=== PATIENT | male | born 2000 | race Caucasian/White ===

== ENCOUNTER 2022-12-25 16:52 | Emergency (ER) | payer MEDICAID ==
[2022-12-25] MEDS ORDERED: TYLENOL 325 MG PO ONE (17:25)
[2022-12-25 17:27] VITALS: BP 124/84; O2SAT 98
--- NOTE | 2022-12-25 17:29 | ERPHSYRPT ---
- History of Present Illness Time Seen by Provider: 12/25/22 17:30 Source: patient Physician History: Patient is a 22-year-old male presents to our ED for evaluation of bilateral hand pain. Patient states he was upset and punched a brick wall. Patient punched a brick wall with his right and his left hand. Right hand is more swollen than the left. Injury occurred just prior to arrival. Pain described as an ache that is localized. No radiation. Pain worse with movement and palpation. Pain improved with rest. Patient denies other injuries. No BHT or LOC. No neck pain. Cervical spine cleared clinically. Patient voices no other complaints or concerns at this time. Patient took ibuprofen approximately 4 hours prior to arrival. Occurred: this afternoon Method of Injury: other (Punched a brick wall) Quality: constant Severity of Pain-Max: moderate Severity of Pain-Current: mild Extremities Pain Location: hand: left Modifying Factors: Improves With: movement, other (Movement and palpation worsens pain) Associated Symptoms: none Allergies/Adverse Reactions: Penicillins Allergy (Verified 12/25/22 17:12) Home Medications: Buspirone HCl 15 mg PO BID 12/25/22 [History] Escitalopram Oxalate [Lexapro] 20 mg PO DAILY 12/25/22 [History] Quetiapine Fumarate [Seroquel] 1 tab PO HS 12/25/22 [History] - Review of Systems Constitutional: No Symptoms, No Fever, No Chills Eyes: No Symptoms Ears, Nose, & Throat: No Symptoms Respiratory: No Symptoms, No Cough, No Dyspnea Cardiac: No Symptoms, No Chest Pain, No Edema, No Syncope Abdominal/Gastrointestinal: No Symptoms, No Abdominal Pain, No Nausea, No Vomiting, No Diarrhea Genitourinary Symptoms: No Symptoms, No Dysuria Musculoskeletal: No Symptoms, No Back Pain, No Neck Pain Skin: No Symptoms, No Rash Neurological: No Symptoms, No Dizziness, No Focal Weakness, No Sensory Changes Psychological: No Symptoms Endocrine: No Symptoms Hematologic/Lymphatic: No Symptoms Immunological/Allergic: No Symptoms All Other Systems: Reviewed and Negative - Nursing Vital Signs Nursing Vital Signs: Initial Vital Signs Temperature 98.7 F 12/25/22 17:16 Pulse Rate 88 12/25/22 17:16 Respiratory Rate 18 12/25/22 17:16 Blood Pressure 124/84 12/25/22 17:16 O2 Sat by Pulse Oximetry 98 12/25/22 17:16 Pain Scale Pain Intensity 8 - Physical Exam General Appearance: no apparent distress, alert Eyes, Ears, Nose, Throat Exam: normal ENT inspection, TMs normal, pharynx normal, moist mucous membranes Neck Exam: normal inspection, non-tender, supple, full range of motion Cardiovascular/Respiratory Exam: chest non-tender, normal breath sounds, regular rate/rhythm, no respiratory distress, decreased pulses Abdominal Exam: non-tender, No guarding Back Exam: normal inspection, normal range of motion, No vertebral tenderness Shoulder Exam: normal inspection, non-tender, no evidence of injury, normal ROM Elbow/Forearm Exam: normal inspection, non-tender, no evidence of injury, normal ROM Wrist Exam: normal inspection, non-tender, no evidence of injury, normal ROM Hand Exam: bone tenderness, limited ROM, swelling (Both hands are swollen however both are neurovascular intact distally. Compartments are soft. Cap refill less than 2 seconds. Radial pulse palpable. No open or draining le sions.) Neuro/Tendon Exam: normal sensation, normal motor functions Mental Status Exam: alert, oriented x 3, cooperative Skin Exam: normal color, warm, dry SpO2 Interpretation: normal SpO2: 98 O2 Delivery: Room Air - Course Nursing assessment & vital signs reviewed: Yes - Radiology Exams Hand X-ray Interpretation: Interpreted by me (Left hand is swollen. There is a fracture of the base of the third fourth and fifth metacarpal.) Other X-ray Interpretation: Interpreted by me (Right hand minimal swelling fracture at the base of the third metacarpal) Ordered Tests: Active Orders 24 hr Category Date Time Status HAND (MINIMUM 3 VIEWS) Stat Exams 12/25/22 16:59 Taken HAND (MINIMUM 3 VIEWS) Stat Exams 12/25/22 16:59 Taken Medication Summary Discontinued Medications Generic Name Dose Route Start Last Admin Trade Name Freq PRN Reason Stop Dose Admin Acetaminophen 975 mg 12/25/22 17:25 12/25/22 17:41 Acetaminophen 325 Mg Tablet PO 12/25/22 17:26 975 mg STAT ONE Administration Acetaminophen Confirm 12/25/22 17:39 Acetaminophen 325 Mg Tablet Administered 12/25/22 17:40 Dose 975 mg .ROUTE .STK-MED ONE - Progress Progress: improved Progress Note: 22-year-old male presents to our ED for evaluation of bilateral hand pain. Left hand more swollen than the right. Patient states he punched a brick wall because he was upset. Patient's complaint is acute. Injury occurred just prior to arrival. Complexity of problems addressed is low, acute uncomplicated. Complexity of data reviewed and analyzed is moderate. Dr. Barillas independently interpreted imaging study of patient's hands. Test ordered. Test reviewed. Risk of complication and or risk morbidity/mortality of patient management is minimal. Patient received Tylenol for pain control. Bilateral splints applied. Patient referred to orthopedic clinic for further evaluation and treatment. Patient reassessed. Pain well controlled at this time. He voices no other complaints or concerns at this time. Both upper extremities are neurovascular intact distally post application of splints to each involved hand. Portions of this note were created with voice recognition technology. There may be grammatical, spelling, punctuation or sound alike errors 12/25/22 18:12 Counseled pt/family regarding: diagnosis, need for follow-up, rad results - Departure Departure Disposition: Home Clinical Impression: Bilateral hand fractures Condition: Stable Critical Care Time: No Referrals: DOCTOR,NO FAMILY [Primary Care Provider] - Follow up/PCP as directed Additional Instructions: Discharge/Care Plan MANJEET FLOWER was seen on 12/25/22 in the Emergency Room. The patient was counseled regarding Diagnosis,Lab results, Imaging studies, need for follow up and when to return to the Emergency Room. Prescriptions given: Discharge Note I have spoken with the patient and/or caregivers. I have explained the patient's condition, diagnosis and treatment plan based on the information available to me at this time. I have answered the patient's and/or caregiver's questions and addressed any concerns. The patient and/or caregivers have as good understanding of the patient's diagnosis, condition and treatment plan as can be expected at this point. The vital signs have been stable. The patient's condition is stable and appropriate for discharge from the emergency department. The patient will pursue further outpatient evaluation with the primary care physician or other designated or consulting physician as outlined in the discharge instructions. The patient and/or caregivers are agreeable to this plan of care and follow-up instructions have been explained in detail. The patient and/or caregivers have received these instruction. The patient/and or caregivers are aware that any significant change in condition or worsening of symptoms sh ould prompt an immediate return to this or the closest emergency department or call 911. Outpatient Orders: Ortho Referral Time Frame: 1 Day, Facility: [facility], Location: ORTHO CLINIC
[2022-12-25] MEDS ORDERED: TYLENOL 325 MG ONE (17:39)
[2022-12-25] MEDS ORDERED: NORCO 5/325 MG PO ONE (18:22)
[2022-12-25] MEDS ORDERED: NORCO 5/325 MG ONE ×2 (18:23)
[2022-12-25 18:31] VITALS: PULSE 80
--- NOTE | 2022-12-26 08:41 | XRAY ---
Indication: Pain and swelling following punching injury. Comparison: None 3 view right hand obtained. No bony, articular, or soft tissue abnormalities.
--- NOTE | 2022-12-26 08:41 | XRAY ---
Indication: Pain and swelling following punching injury. Comparison: None 3 view left hand demonstrates nondisplaced fractures proximal shafts 3rd-4th metacarpals and angulated fracture proximal shaft 5th metacarpal with diffuse posterior soft tissue swelling. No other bony, articular, or soft tissue abnormalities.
== END 2022-12-25 18:31 | disposition home or self-care (01) ==
LOC: ED 16:52
DX: S62.313A Displaced fracture of base of third metacarpal bone, left hand, initial encounter for closed fracture (principal); S62.315A Displaced fracture of base of fourth metacarpal bone, left hand, initial encounter for closed fracture; S62.317A Displaced fracture of base of fifth metacarpal bone, left hand, initial encounter for closed fracture; S62.312A Displaced fracture of base of third metacarpal bone, right hand, initial encounter for closed fracture; W22.01XA Walked into wall, initial encounter; M79.641 Pain in right hand; M79.642 Pain in left hand; Z79.899 Other long term (current) drug therapy
CPT/HCPCS: 29125; 73130; 99283; A9270-GY

== ENCOUNTER 2023-09-03 11:13 | Emergency (ER) | payer MEDICAID ==
--- NOTE | 2023-09-03 11:43 | ERPHSYRPT ---
- History of Present Illness Time Seen by Provider: 09/03/23 11:20 Source: patient Exam Limitations: no limitations Patient Subjective Stated Complaint: C/O intermittent SOB with cough for the past few days Triage Nursing Assessment: Patient ambulated back to ER without difficulties. NO cough. No SOB. Skin tone normal. DOBSON WNL. Lungs clear with right side slightly diminished. Physician History: 23-year-old male no significant past medical history presents to our ED for evaluation of intermittent shortness of breath and a intermittent dry cough. Symptoms started approximately 3 days ago. Patient denies pain. No dizziness. No nausea vomiting or diaphoresis. Patient currently asymptomatic. When present symptoms are mild to moderate in intensity. Shortness of breath mostly with exertion. Patient otherwise feels well. He voices no other complaints or concerns at this time. Portions of this note were created with voice recognition technology. There may be grammatical, spelling, punctuation or sound alike errors Timing/Duration: day(s) (2 to 3 days) Activities at Onset: activity Severity of Dyspnea-Max: moderate Severity of Dyspnea-Current: mild Possible Cause: no prior episodes Modifying Factors: Improves With: activity Associated Symptoms: cough Allergies/Adverse Reactions: Penicillins Allergy (Verified 09/03/23 11:17) Home Medications: Brexpiprazole [Rexulti] 1 tab PO DAILY 09/03/23 [History] Fluoxetine HCl 20 mg [Prozac 20 MG] 1 cap PO DAILY 09/03/23 [History] Hx Tetanus, Diphtheria Vaccination/Date Given: Yes Hx Influenza Vaccination/Date Given: No Hx Pneumococcal Vaccination/Date Given: No Immunizations Up to Date: Yes Travel Risk - International Travel Have you traveled outside of the country in past 3 weeks: No - Coronavirus Screening Are you exhibiting any of the following symptoms?: Yes Symptoms: Cough: New Onset, Shortness of Breath Close contact with a COVID-19 positive Pt in past 14-21 Days: No - Vaccine Status Have you recieved a Covid-19 vaccination: Yes Stem Mounter: Moderna - Vaccination Dates Date of 2cond Vaccination (if applicable): na - Review of Systems Constitutional: No Symptoms, No Fever, No Chills Eyes: No Symptoms Ears, Nose, & Throat: No Symptoms Respiratory: No Symptoms, No Cough, No Dyspnea Cardiac: No Symptoms, No Chest Pain, No Edema, No Syncope Abdominal/Gastrointestinal: No Symptoms, No Abdominal Pain, No Nausea, No Vomiting, No Diarrhea Genitourinary Symptoms: No Symptoms, No Dysuria Musculoskeletal: No Symptoms, No Back Pain, No Neck Pain Skin: No Symptoms, No Rash Neurological: No Symptoms, No Dizziness, No Focal Weakness, No Sensory Changes Psychological: No Symptoms Endocrine: No Symptoms Hematologic/Lymphatic: No Symptoms Immunological/Allergic: No Symptoms All Other Systems: Reviewed and Negative - Past Medical History Pertinent Past Medical History: Yes Neurological History: Epilepsy ENT History: No Pertinent History Cardiac History: No Pertinent History Respiratory History: Pneumonia Endocrine Medical History: No Pertinent History Musculoskeletal History: No Pertinent History GI Medical History: Hernia History: No Pertinent History Psycho-Social History: Anxiety, Bipolar, Depression, Other Male Reproductive Disorders: No Pertinent History Other Medical History: Autism, reactive attachment disorder - Past Surgical History Past Surgical History: Yes Neuro Surgical History: No Pertinent History Cardiac: No Pertinent History Respiratory: No Pertinent History Gastrointestinal: Hernia Repair Genitourinary: No Pertinent History Musculoskeletal: No Pertinent History Male Surgical History: No Pertinent History Other Surgical History: Hernia repair - Social History Smoking Status: Never smoker Exposure to second hand smoke: No Drug Use: none Patient Lives Alone: No - Nursing Vital Signs Nursing Vital Signs: Initial Vital Signs Respiratory Rate 17 09/03/23 11:14 O2 Sat by Pulse Oximetry 99 09/03/23 11:14 Pain Scale Pain Intensity 0 - Physical Exam General Appearance: no apparent distress, alert Eye Exam: PERRL/EOMI Neck Exam: normal inspection, supple Respiratory Exam: normal breath sounds, airway intact, diminished breath sounds ([place] diminished otherwise nonremarkable), No respiratory distress Cardiovascular/Chest Exam: normal heart sounds, regular rate/rhythm Abdominal/Gastrointestinal Exam: soft, No tenderness, No distention, No mass Extremity Exam: non-tender, normal range of motion, normal inspection, no calf tenderness, no pedal edema Neurologic Exam: alert, oriented x 3, cooperative, spray unit feeder II-XII nml as tested, sensation nml, No motor deficits Skin Exam: normal color, warm, No dry Lymphatic Exam: No adenopathy SpO2 Interpretation: normal SpO2: 99 O2 Delivery: Room Air - Course Nursing assessment & vital signs reviewed: Yes EKG Interpreted by Me: RATE (89), Sinus Rhythm, NORMAL AXIS, NORMAL INTERVALS - Radiology Exams Chest X-ray Interpretation: Teleradiologist Report (Negative chest x-ray) - CT Exams Chest CT Interpretation: Tele-radiologist Report (Negative for PE.) Ordered Tests: Active Orders 24 hr Category Date Time Status EKG-ER Only STAT Care 09/03/23 11:20 Active IV Insertion STAT Care 09/03/23 12:41 Active CHEST 1 VIEW (PORTABLE) Stat Exams 09/03/23 11:20 Completed CHEST WITH CONTRAST [CT] Stat Exams 09/03/23 12:42 Completed CBC W DIFF Stat Lab 09/03/23 11:50 Completed CMP Stat Lab 09/03/23 11:50 Completed D-DIMER QUANTITATIVE Stat Lab 09/03/23 11:50 Completed TROPONIN Q4H Lab 09/03/23 11:50 Completed TROPONIN Q4H Lab 09/03/23 15:45 Ordered TROPONIN Q4H Lab 09/03/23 19:45 Ordered Respiratory Therapy Assessment DAILY RT 09/03/23 12:44 Completed Medication Summary Discontinued Medications Generic Name Dose Route Start Last Admin Trade Name Freq PRN Reason Stop Dose Admin Albuterol/Ipratropium 3 ml 09/03/23 12:14 09/03/23 12:41 Ipratropium/Albuterol Sulfate 3 Ml Ampul.Neb IH 09/03/23 12:15 3 ml STAT ONE Administration Albuterol/Ipratropium Confirm 09/03/23 12:38 Ipratropium/Albuterol Sulfate 3 Ml Ampul.Neb Administered 09/03/23 12:39 Dose 3 ml IH .STK-MED ONE Lab/Rad Data: Laboratory Result Diagrams 09/03/23 11:50 09/03/23 11:50 Laboratory Results 09/03/23 09/03/23 09/03/23 Range/Units 11:50 11:50 11:50 WBC (4.0-10.5) x10^3/uL RBC (4.1-5.6) x10^6/uL Hgb (12.5-18.0) g/dL Hct (42-50) % MCV (78-100) fL MCH (26-32) pg MCHC (32-36) g/dL RDW (11.5-14.0) % Plt Count (150-450) x10^3/uL MPV (7.5-11.0) fL Gran % (36.0-66.0) % Immature Gran % (Auto) (0.00-0.4) % Nucleat RBC Rel Count (0.00-0.1) % Eos # (Auto) (0-0.5) x10^3/uL Immature Gran # (Auto) (0.00-0.03) x10^3u/L Absolute Lymphs (auto) (1.0-4.6) x10^3/uL Absolute Monos (auto) (0.0-1.3) x10^3/uL Absolute Nucleated RBC (0.00-0.01) x10^3u/L Lymphocytes % (24.0-44.0) % Monocytes % (0.0-12.0) % Eosinophils % (0.00-5.0) % Basophils % (0.0-0.4) % Absolute Granulocytes (1.4-6.9) x10^3/uL Basophils # (0-0.4) x10^3/uL D-Dimer 0.62 H* (0.0-0.50) mg/L Sodium 139 (137-145) mmol/L Potassium 3.9 (3.5-5.1) mmol/L Chloride 108 H (98-107) mmol/L Carbon Dioxide 21 L (22-30) mmol/L Anion Gap 13.4 (5-15) MEQ/L BUN 16 (9-20) mg/dL Creatinine 1.22 (0.66-1.25) mg/dL Estimated GFR 86.0 ML/MIN Glucose 100 (74-106) mg/dL Calcium 9.5 (8.4-10.2) mg/dL Total Bilirubin 0.50 (0.2-1.3) mg/dL AST 23 (17-59) U/L ALT 28 (0-50) U/L Alkaline Phosphatase 73 (38-126) U/L Troponin I < 0.012 (0.000-0.034) ng/mL Serum Total Protein 7.0 (6.3-8.2) g/dL Albumin 4.2 (3.5-5.0) g/dL Influenza Type A Ag (NEGATIVE) Influenza Type B Ag (NEGATIVE) RSV (PCR) (NEGATIVE) SARS-CoV-2 (PCR) (NEGATIVE) Group A Strep Antibody (NEGATIVE) 09/03/23 09/03/23 09/03/23 Range/Units 11:50 11:40 11:40 WBC 5.5 (4.0-10.5) x10^3/uL RBC 5.48 (4.1-5.6) x10^6/uL Hgb 15.9 (12.5-18.0) g/dL Hct 46.6 (42-50) % MCV 85.0 (78-100) fL MCH 29.0 (26-32) pg MCHC 34.1 (32-36) g/dL RDW 12.1 (11.5-14.0) % Plt Count 342 (150-450) x10^3/uL MPV 9.1 (7.5-11.0) fL Gran % 58.8 (36.0-66.0) % Immature Gran % (Auto) 0.4 (0.00-0.4) % Nucleat RBC Rel Count 0.0 (0.00-0.1) % Eos # (Auto) 0.09 (0-0.5) x10^3/uL Immature Gran # (Auto) 0.02 (0.00-0.03) x10^3u/L Absolute Lymphs (auto) 1.63 (1.0-4.6) x10^3/uL Absolute Monos (auto) 0.49 (0.0-1.3) x10^3/uL Absolute Nucleated RBC 0.00 (0.00-0.01) x10^3u/L Lymphocytes % 29.6 (24.0-44.0) % Monocytes % 8.9 (0.0-12.0) % Eosinophils % 1.6 (0.00-5.0) % Basophils % 0.7 (0.0-0.4) % Absolute Granulocytes 3.24 (1.4-6.9) x10^3/uL Basophils # 0.04 (0-0.4) x10^3/uL D-Dimer (0.0-0.50) mg/L Sodium (137-145) mmol/L Potassium (3.5-5.1) mmol/L Chloride (98-107) mmol/L Carbon Dioxide (22-30) mmol/L Anion Gap (5-15) MEQ/L BUN (9-20) mg/dL Creatinine (0.66-1.25) mg/dL Estimated GFR ML/MIN Glucose (74-106) mg/dL Calcium (8.4-10.2) mg/dL Total Bilirubin (0.2-1.3) mg/dL AST (17-59) U/L ALT (0-50) U/L Alkaline Phosphatase (38-126) U/L Troponin I (0.000-0.034) ng/mL Serum Total Protein (6.3-8.2) g/dL Albumin (3.5-5.0) g/dL Influenza Type A Ag NEGATIVE (NEGATIVE) Influenza Type B Ag NEGATIVE (NEGATIVE) RSV (PCR) NEGATIVE (NEGATIVE) SARS-CoV-2 (PCR) NEGATIVE (NEGATIVE) Group A Strep Antibody NOT DETECTED (NEGATIVE) - Progress Progress: improved Air Movement: good Progress Note: Patient assessed at rest. O2 sat on room air 97%. Patient reassessed during exertion while ambulating. Oxygen saturation remained 97%. No tachypnea or respiratory distress observed. Patient denied experiencing shortness of breath with exertion during our assessment here in the emergency department. Chest x- ray negative. EKG normal sinus rhythm. D-dimer positive. CTA chest negative. Troponin negative. Hemoglobin negative. CBC CMP nonremarkable otherwise. No indication for further work-up at this time. Will discharge home. Patient voices no other complaints or concerns at this time. Patient received a DuoNeb treatment. Patient states symptoms improved. Portions of this note were created with voice recognition technology. There may be grammatical, spelling, punctuation or sound alike errors Patient 23-year-old male presents to our ED for evaluation of intermittent shortness of breath and cough. Physical exam slightly diminished breath sounds. Work-up negative. Complexity problem addressed is moderate acute complicated Critical care time Place of data reviewed and analyzed is moderate. Test ordered test reviewed. Results analyzed and correlated clinically with history and physical examination. Risk of complication and a risk morbidity/mortality of patient management is moderate. A prescription for albuterol inhaler forwarded to patient's pharmacy. Vital stable. Time spent to discharge patient approximately 15 minutes. Plan of care established for shared decision making. No social determinants of health present impede follow-up. 09/03/23 12:08 09/03/23 12:43 Blood Culture(s) Obtained: No Antibiotics given: No Counseled pt/family regarding: lab results, diagnosis, need for follow-up, rad results - Departure Departure Disposition: Home Clinical Impression: Shortness of breath, Reactive airway disease Condition: Stable Critical Care Time: No Referrals: DOCTOR,NO FAMILY [Primary Care Provider] - Follow up/PCP as directed Instructions: Shortness of Breath (Dyspnea) (DC) Additional Instructions: Discharge/Care Plan MANJEET FLOWER was seen on 09/03/23 in the Emergency Room. The patient was counseled regarding Diagnosis,Lab results, Imaging studies, need for follow up and when to return to the Emergency Room. Prescriptions given: Discharge Note I have spoken with the patient and/or caregivers. I have explained the patient's condition, diagnosis and treatment plan based on the information available to me at this time. I have answered the patient's and/or caregiver's questions and addressed any concerns. The patient and/or caregivers have as good understanding of the patient's diagnosis, condition and treatment plan as can be expected at this point. The vital signs have been stable. The patient's condition is stable and appropriate for discharge from the emergency department. The patient will pursue further outpatient evaluation with the primary care physician or other designated or consulting physician as outlined in the discharge instructions. The patient and/or caregivers are agreeable to this plan of care and follow-up instructions have been explained in detail. The patient and/or caregivers have received these instruction. The patient/and or caregivers are aware that any significant change in condition or worsening of symptoms should prompt an immediate return to this or the closest emergency department or call 911. Prescriptions: Albuterol 8 gm Mdi Hfa [Ventolin Hfa MDI] 8 gm IH Q4H 7 Days #1 unit
--- NOTE | 2023-09-03 11:53 | XRAY ---
Indication: Short of breath and cough. Comparison: May 27, 2011 Portable chest again demonstrates normal heart, lungs, and bony thorax.
[2023-09-03 11:56] LABS: Absolute Neutrophil Ct (ANC) 3.24 x10^3/uL (1.4-6.9); BASOPHIL % 0.7 % (0.0-0.4); Basophil (Absolute #) 0.04 x10^3/uL (0-0.4); Eosinophil % 1.6 % (0.00-5.0); Eosinophil (Absolute #) 0.09 x10^3/uL (0-0.5); Hematocrit 46.6 % (42-50); Hemoglobin 15.9 g/dL (12.5-18.0); IMMATURE GRAN # 0.02 x10^3u/L (0.00-0.03); IMMATURE GRAN % 0.4 % (0.00-0.4); Lymphocyte (Absolute #) 1.63 x10^3/uL (1.0-4.6); Lymphocytes % 29.6 % (24.0-44.0); Mean Corpuscular Hgb Concent. 34.1 g/dL (32-36); Mean Platelet Volume 9.1 fL (7.5-11.0); Monocyte (Absolute #) 0.49 x10^3/uL (0.0-1.3); Monocytes % 8.9 % (0.0-12.0); Neutrophil % 58.8 % (36.0-66.0); Platelet Count 342 x10^3/uL (150-450); Red Blood Count 5.48 x10^6/uL (4.1-5.6); Red Cell Distribution Width 12.1 % (11.5-14.0); White Blood Count 5.5 x10^3/uL (4.0-10.5)
[2023-09-03 12:10] LABS: ALBUMIN 4.2 g/dL (3.5-5.0); ANION GAP 13.4 MEQ/L (5-15); BILIRUBIN,TOTAL 0.5 mg/dL (0.2-1.3); Calcium 9.5 mg/dL (8.4-10.2); Creatinine 1 1.22 mg/dL (0.66-1.25); Potassium 3.9 mmol/L (3.5-5.1)
[2023-09-03 12:27] LABS: INFLUENZA A NEGATIVE (NEGATIVE); INFLUENZA B NEGATIVE (NEGATIVE); RESPIRATORY SYNCTIAL VIRUS NEGATIVE (NEGATIVE); SARS-CoV-2 Xpert Express NEGATIVE (NEGATIVE)
[2023-09-03] MEDS ORDERED: DUONEB 0.5-3 MG/3 ml Neb IH ONE (12:38)
[2023-09-03] MEDS: DUONEB 0.5-3 MG/3 ml Neb IH ONE (12:41)
--- NOTE | 2023-09-03 13:27 | XRAY ---
Indication: Short of breath and cough. Elevated d-dimer. Multiple contiguous axial images obtained through the chest using 80 cc Isovue 370 contrast and PE protocol. Comparison: None Adequate opacification of the pulmonary arteries to include the lobar and segmental branches. No pulmonary embolus. Heart not enlarged. Aorta is normal in course and caliber. No pathologic mediastinal/hilar lymphadenopathy. Lungs inflated and clear. Bony thorax intact. Limited upper abdomen including adrenal glands are unremarkable. Impression: Normal CT chest pulmonary embolus exam.
[2023-09-03 13:49] VITALS: BP 142/81; PULSE 84; RESP 16
[2023-09-03 13:52] VITALS: O2SAT 99
== END 2023-09-03 13:53 | disposition home or self-care (01) ==
LOC: ED 11:13
DX: J45.909 Unspecified asthma, uncomplicated (principal); R06.02 Shortness of breath; R05.1 Acute cough; Z79.899 Other long term (current) drug therapy
CPT/HCPCS: 0241U; 36000; 36415; 71045; 71260; 80053; 84484; 85025; 85379; 87651; 93005; 94640; 99284; A9270-GY

== ENCOUNTER 2023-09-25 01:03 | Emergency (ER) | payer MEDICAID ==
[2023-09-25 02:14] LABS: Absolute Neutrophil Ct (ANC) 9.26 x10^3/uL (1.4-6.9); BASOPHIL % 0.3 % (0.0-0.4); Basophil (Absolute #) 0.04 x10^3/uL (0-0.4); Eosinophil % 0.2 % (0.00-5.0); Eosinophil (Absolute #) 0.02 x10^3/uL (0-0.5); Hematocrit 49.5 % (42-50); Hemoglobin 16.4 g/dL (12.5-18.0); IMMATURE GRAN # 0.04 x10^3u/L (0.00-0.03); IMMATURE GRAN % 0.3 % (0.00-0.4); Lymphocyte (Absolute #) 1.68 x10^3/uL (1.0-4.6); Lymphocytes % 14.2 % (24.0-44.0); Mean Cell Volume 87.3 fL (78-100); Mean Corpuscular Hemoglobin 28.9 pg (26-32); Mean Corpuscular Hgb Concent. 33.1 g/dL (32-36); Mean Platelet Volume 8.9 fL (7.5-11.0); Monocyte (Absolute #) 0.77 x10^3/uL (0.0-1.3); Monocytes % 6.5 % (0.0-12.0); Neutrophil % 78.5 % (36.0-66.0); Platelet Count 348 x10^3/uL (150-450); Red Blood Count 5.67 x10^6/uL (4.1-5.6); Red Cell Distribution Width 12.8 % (11.5-14.0); White Blood Count 11.8 x10^3/uL (4.0-10.5)
[2023-09-25 02:23] VITALS: TEMP 97.2
[2023-09-25 02:27] VITALS: O2SAT 97
[2023-09-25 02:28] LABS: ALBUMIN 4.5 g/dL (3.5-5.0); ANION GAP 16.3 MEQ/L (5-15); BILIRUBIN,TOTAL 0.4 mg/dL (0.2-1.3); Calcium 10.3 mg/dL (8.4-10.2); Creatinine 1 1.08 mg/dL (0.66-1.25); EST GLOMERULAR FILTRATION RATE 99.5 ML/MIN; Potassium 3.9 mmol/L (3.5-5.1); Total Protein 7.5 g/dL (6.3-8.2)
--- NOTE | 2023-09-25 03:02 | ERPHSYRPT ---
- History of Present Illness Time Seen by Provider: 09/25/23 02:00 Source: patient Exam Limitations: no limitations Patient Subjective Stated Complaint: pt states that he woke up and was "excessively sweaty" and has been having frequent muscle cramps and spasms. reports that this has been going on for approx 1 mo and was seen here on 09/03/2023 then was seen by his PCP who placed him on a heart monitor which was placed 09/24/23 and he will follow up with his PCP for those results in 2 wks. Triage Nursing Assessment: pt ambulated into room 8 independently with slow steady gait. pt is alert and oriented times three, is able to move all extremi ties, resp even and unlabored, and able to speak in complete sentences. speech yumiko is very rapid and with his voice frequently fluctuated to loudness, intonation, speed. pt fidgeting with his hands during entire triage assessment. minimal eye contact made by pt, shifting his eyes rapidly from person to person or object in room. pt appears anxious but states this isn't usually how he feels with his anxiety and denies being nervous about anything but does report that he is behind in his college schoolwork and exam prep and also hasn't been seeing his therapist as recommended. pt denies other symptoms at this time. pt reports being "hot and sweaty" skin warm, dry, pink, and intact without perspiration noted. Physician History: 23-year-old male presents to our ED for evaluation of cramps. Patient states symptoms have been ongoing for approximately 1 month. Patient saw his PCP regarding these problems. Patient states that he is concerned as symptoms are ongoing. Patient admits to drinking vodka on weekends. Patient states he drinks a significant amount approximately 1 "handle". Patient denies illicit drug use. 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 Patient denies pain. No nausea vomiting or diaphoresis. No fever. Symptoms are mild to moderate in intensity. No specific worsening or improving factors. Patient voices no other complaints or concerns at this time. Portions of this note were created with voice recognition technology. There may be grammatical, spelling, punctuation or sound alike errors Timing/Duration: week(s) (1 month) Severity: moderate Modifying Factors: Improves With: nothing Associated Symptoms: other (Symptoms are associated with stress and anxiety patient denies HI SI) Allergies/Adverse Reactions: Penicillins Allergy (Verified 09/25/23 01:47) Home Medications: Brexpiprazole [Rexulti] 1 tab PO DAILY 09/03/23 [History] Fluoxetine HCl 20 mg [Prozac 20 MG] 1 cap PO DAILY 09/03/23 [History] Clonidine HCl 0.1 mg [Clonidine 0.1 mg Tablet] 2 tab PO HS 09/25/23 [History] Hx Tetanus, Diphtheria Vaccination/Date Given: Yes Hx Influenza Vaccination/Date Given: No Hx Pneumococcal Vaccination/Date Given: No Immunizations Up to Date: Yes Travel Risk - International Travel Have you traveled outside of the country in past 3 weeks: No - Coronavirus Screening Are you exhibiting any of the following symptoms?: No Close contact with a COVID-19 positive Pt in past 14-21 Days: No - Vaccine Status Have you recieved a Covid-19 vaccination: Yes [employer]: [id number] - Vaccination Dates Date of 2cond Vaccination (if applicable): n/a - Review of Systems Constitutional: No Symptoms, No Fever, No Chills Eyes: No Symptoms Ears, Nose, & Throat: No Symptoms Respiratory: No Symptoms, No Cough, No Dyspnea Cardiac: No Symptoms, No Chest Pain, No Edema, No Syncope Abdominal/Gastrointestinal: No Symptoms, No Abdominal Pain, No Nausea, No Vomiting, No Diarrhea Genitourinary Symptoms: No Symptoms, No Dysuria Musculoskeletal: No Symptoms, No Back Pain, No Neck Pain Skin: No Symptoms, No Rash Neurological: No Symptoms, No Dizziness, No Focal Weakness, No Sensory Changes Psychological: No Symptoms Endocrine: No Symptoms Hematologic/Lymphatic: No Symptoms Immunological/Allergic: No Symptoms All Other Systems: Reviewed and Negative - Past Medical History Pertinent Past Medical History: Yes Neurological History: Epilepsy ENT History: No Pertinent History Cardiac History: No Pertinent History Respiratory History: Pneumonia Endocrine Medical History: No Pertinent History Musculoskeletal History: No Pertinent History GI Medical History: Hernia History: No Pertinent History Psycho-Social History: Anxiety, Bipolar, Depression, Other Male Reproductive Disorders: No Pertinent History Other Medical History: Autism, reactive attachment disorder - Past Surgical History Past Surgical History: Yes Neuro Surgical History: No Pertinent History Cardiac: No Pertinent History Respiratory: No Pertinent History Gastrointestinal: Hernia Repair Genitourinary: No Pertinent History Musculoskeletal: No Pertinent History Male Surgical History: No Pertinent History Other Surgical History: Hernia repair x2 - Social History Smoking Status: Never smoker Exposure to second hand smoke: No Drug Use: none Patient Lives Alone: No - Nursing Vital Signs Nursing Vital Signs: Initial Vital Signs Pulse Rate 103 H 09/25/23 01:48 Respiratory Rate 20 09/25/23 01:48 Blood Pressure 150/98 09/25/23 01:48 O2 Sat by Pulse Oximetry 96 09/25/23 01:48 Pain Scale Pain Intensity 0 - Physical Exam General Appearance: no apparent distress, alert Eye Exam: PERRL/EOMI, eyes nml inspection Ears, Nose, Throat Exam: normal ENT inspection, pharynx normal, moist mucous membranes Neck Exam: normal inspection, non-tender, supple, full range of motion Respiratory Exam: normal breath sounds, lungs clear, airway intact, No respiratory distress Cardiovascular Exam: regular rate/rhythm, normal heart sounds, normal peripheral pulses Gastrointestinal/Abdomen Exam: soft, normal bowel sounds, No tenderness, No mass Back Exam: normal inspection, normal range of motion, No CVA tenderness, No vertebral tenderness Extremity Exam: normal inspection, normal range of motion, pelvis stable Neurologic Exam: alert, oriented x 3, cooperative, normal mood/affect, nml cerebellar function, nml station & gait, sensation nml, No motor deficits Skin Exam: normal color, warm, dry, No rash Lymphatic Exam: No adenopathy SpO2 Interpretation: normal SpO2: 97 O2 Delivery: Room Air - Course Nursing assessment & vital signs reviewed: Yes Ordered Tests: Active Orders 24 hr Category Date Time Status Medical Laboratory Manager STAT Care 09/25/23 01:55 Active IV Insertion STAT Care 09/25/23 01:55 Active CBC W DIFF Stat Lab 09/25/23 02:05 Completed CMP Stat Lab 09/25/23 02:05 Completed MAGNESIUM Stat Lab 09/25/23 02:05 Completed Lab/Rad Data: Laboratory Result Diagrams 09/25/23 02:05 09/25/23 02:05 Laboratory Results 09/25/23 09/25/23 09/25/23 Range/Units 02:05 02:05 02:05 WBC 11.8 H (4.0-10.5) x10^3/uL RBC 5.67 H (4.1-5.6) x10^6/uL Hgb 16.4 (12.5-18.0) g/dL Hct 49.5 (42-50) % MCV 87.3 (78-100) fL MCH 28.9 (26-32) pg MCHC 33.1 (32-36) g/dL RDW 12.8 (11.5-14.0) % Plt Count 348 (150-450) x10^3/uL MPV 8.9 (7.5-11.0) fL Gran % 78.5 H (36.0-66.0) % Immature Gran % (Auto) 0.3 (0.00-0.4) % Nucleat RBC Rel Count 0.0 (0.00-0.1) % Eos # (Auto) 0.02 (0-0.5) x10^3/uL Immature Gran # (Auto) 0.04 H (0.00-0.03) x10^3u/L Absolute Lymphs (auto) 1.68 (1.0-4.6) x10^3/uL Absolute Monos (auto) 0.77 (0.0-1.3) x10^3/uL Absolute Nucleated RBC 0.00 (0.00-0.01) x10^3u/L Lymphocytes % 14.2 L (24.0-44.0) % Monocytes % 6.5 (0.0-12.0) % Eosinophils % 0.2 (0.00-5.0) % Basophils % 0.3 (0.0-0.4) % Absolute Granulocytes 9.26 H (1.4-6.9) x10^3/uL Basophils # 0.04 (0-0.4) x10^3/uL Sodium 136 L (137-145) mmol/L Potassium 3.9 (3.5-5.1) mmol/L Chloride 102 (98-107) mmol/L Carbon Dioxide 22 (22-30) mmol/L Anion Gap 16.3 H (5-15) MEQ/L BUN 16 (9-20) mg/dL Creatinine 1.08 (0.66-1.25) mg/dL Estimated GFR 99.5 ML/MIN Glucose 99 (74-106) mg/dL Calcium 10.3 H (8.4-10.2) mg/dL Magnesium 1.6 (1.6-2.3) mg/dL Total Bilirubin 0.40 (0.2-1.3) mg/dL AST 37 (17-59) U/L ALT 60 H (0-50) U/L Alkaline Phosphatase 86 (38-126) U/L Serum Total Protein 7.5 (6.3-8.2) g/dL Albumin 4.5 (3.5-5.0) g/dL - Progress Progress: improved Progress Note: CBC CMP completed. Magnesium within normal limits. Electrolytes appear to be nonremarkable. Patient reassessed. He remains asymptomatic. Vital stable. Patient has no complaints. No indication for further workup. Will discharge home. Patient agrees to follow-up with his primary care doctor within 48 hours for reevaluation. Portions of this note were created with voice recognition technology. There may be grammatical, spelling, punctuation or sound alike errors Complexity of problems addressed is moderate acute complicated No critical care time Complexity of data reviewed and analyzed is moderate. Test ordered test reviewed. Results analyzed and correlated clinically. Risk complication and a risk morbidity/mortality of patient management is low. Vital stable. Time spent to discharge patient is approximately 10 minutes. Plan of care established for shared decision making. No social determinants of health present impede follow-up. Portions of this note were created with voice recognition technology. There may be grammatical, spelling, punctuation or sound alike errors 09/25/23 03:05 09/25/23 03:06 Counseled pt/family regarding: lab results, diagnosis, need for follow-up - Departure Departure Disposition: Home Clinical Impression: Muscle spasm Condition: Stable Critical Care Time: No Referrals: BOBBY JONES ASSISTANT FILM EDITOR [Primary Care Provider] - Follow up/PCP as directed Additional Instructions: Discharge/Care Plan MANJEET FLOWER was seen on 09/25/23 in the Emergency Room. The patient was counseled regarding Diagnosis,Lab results, Imaging studies, need for follow up and when to return to the Emergency Room. Prescriptions given: Discharge Note I have spoken with the patient and/or caregivers. I have explained the patient's condition, diagnosis and treatment plan based on the information available to me at this time. I have answered the patient's and/or caregiver's questions and addressed any concerns. The patient and/or caregivers have as good understanding of the patient's diagnosis, condition and treatment plan as can be expected at this point. The vital signs have been stable. The patient's condition is stable and appropriate for discharge from the emergency department. The patient will pursue further outpatient evaluation with the primary care physician or other designated or consulting physician as outlined in the discharge instructions. The patient and/or caregivers are agreeable to this plan of care and follow-up instructions have been explained in detail. The patient and/or caregivers have received these instruction. The patient/and or caregivers are aware that any significant change in condition or worsening of symptoms should prompt an immediate return to this or the closest emergency department or call 911.
[2023-09-25 03:09] VITALS: BP 158/101; PULSE 108; RESP 18
== END 2023-09-25 03:17 | disposition home or self-care (01) ==
LOC: ED 01:03
DX: M62.838 Other muscle spasm (principal); Z79.899 Other long term (current) drug therapy; Z55.8 Other problems related to education and literacy
CPT/HCPCS: 36415; 80053; 83735; 85025; 93041; 99283

== ENCOUNTER 2023-11-07 06:35 | Emergency (ER) | payer MEDICAID ==
[2023-11-07 06:47] VITALS: TEMP 97.8
[2023-11-07] MEDS ORDERED: Sodium Chloride 0.9% 1000 ML 1,000 ML IV STA (06:56)
[2023-11-07] MEDS ORDERED: Ativan 2 MG/1 ML VIAL IV ONE (06:59)
--- NOTE | 2023-11-07 07:03 | ERPHSYRPT ---
- History of Present Illness Source: patient Exam Limitations: no limitations Patient Subjective Stated Complaint: Pt states "I am trying to taper myself down from drinking. I usually drink vodka every day and the last drink I have had was last night at 8 pm." Triage Nursing Assessment: Pt presented alert and oriented X 3, skin pwd. pt ambulates with an upright steady gait, able to speak in clear full sentences. Pt has tremors noted, pt resting comfortably on the bed. Hx Tetanus, Diphtheria Vaccination/Date Given: Yes Hx Influenza Vaccination/Date Given: No Hx Pneumococcal Vaccination/Date Given: No Immunizations Up to Date: No <SALOME FRENCH - Last Filed: 11/07/23 06:56> <TRISTEN SANFORD - Last Filed: 11/07/23 10:50> - History of Present Illness Time Seen by Provider: 11/07/23 06:45 Physician History: For the past 18 months pt has drank 1 handle of vodka per day except for the past 2 days where he cut down to 15 beers/day with last drink 10.75 hours ago; for the past 2 months intermittent generalized cramping abdominal pain with episodes lasting 1 second; last BM was yesterday. Pt states he has had black stools for the past 2 days. Pt c/o diaphoresis, shakes and chills for the past 2 days. Pt is requesting transfer to a treatment center for detox. (SALOME FRENCH) Allergies/Adverse Reactions: Penicillins Allergy (Verified 11/07/23 07:21) Home Medications: Fluoxetine HCl 20 mg [Prozac 20 MG] 1 cap PO DAILY 09/03/23 [History] hydrOXYzine HCL [Hydroxyzine HCl] 50 mg PO DAILY 11/07/23 [History] Travel Risk - International Travel Have you traveled outside of the country in past 3 weeks: No - Coronavirus Screening Are you exhibiting any of the following symptoms?: No Close contact with a COVID-19 positive Pt in past 14-21 Days: No - Vaccine Status Have you recieved a Covid-19 vaccination: Yes Billing Typist: Moderna - Vaccination Dates Date of 2cond Vaccination (if applicable): n/a <SALOME FRENCH - Last Filed: 11/07/23 06:56> - Past Medical History Pertinent Past Medical History: Yes Neurological History: Epilepsy ENT History: No Pertinent History Cardiac History: No Pertinent History Respiratory History: Pneumonia Endocrine Medical History: No Pertinent History Musculoskeletal History: No Pertinent History GI Medical History: Hernia History: No Pertinent History Psycho-Social History: Anxiety, Bipolar, Depression, Other Male Reproductive Disorders: No Pertinent History Other Medical History: Autism, reactive attachment disorder - Past Surgical History Past Surgical History: Yes Neuro Surgical History: No Pertinent History Cardiac: No Pertinent History Respiratory: No Pertinent History Gastrointestinal: Hernia Repair Genitourinary: No Pertinent History Musculoskeletal: No Pertinent History Male Surgical History: No Pertinent History Other Surgical History: Hernia repair x2 - Social History Smoking Status: Never smoker Exposure to second hand smoke: No Drug Use: none Patient Lives Alone: No <SALOME FRENCH - Filed: 11/07/23 06:56> - Review of Systems Constitutional: Chills, Other (diaphoresis), No Fever Ears, Nose, & Throat: No Ear Pain, No Throat Pain Respiratory: No Cough, No Dyspnea Cardiac: No Chest Pain Abdominal/Gastrointestinal: Abdominal Pain, Other (black stools for the past 2 days), No Vomiting, No Diarrhea Genitourinary Symptoms: No Dysuria Skin: No Rash Neurological: No Headache Psychological: Alcohol Abuse <ELMERSALOME RENTERIA Filed: 11/07/23 06:56> - Physical Exam General Appearance: alert, anxiety Eyes, Ears, Nose, Throat Exam: TMs normal, pharynx normal Neck Exam: normal inspection Respiratory Exam: normal breath sounds, airway intact Cardiovascular Exam: normal heart sounds Gastrointestinal/Abdominal Exam: soft, normal bowel sounds Extremities Exam: No edema Peripheral Pulses: dorsalis-pedis (R): 1+, dorsalis-pedis (L): 1+ Neurological Exam: alert, anxious Behavior/Eye Contact/Speech: alert & cooperative Thoughts/Hallucinations: normal thought pattern Skin Exam: warm, dry SpO2 Interpretation: normal SpO2: 99 O2 Delivery: Room Air <SALOME FRENCH - Filed: 11/07/23 06:56> - Nursing Vital Signs Nursing Vital Signs: Initial Vital Signs Temperature 97.8 F 11/07/23 06:41 Pulse Rate 121 H 11/07/23 06:41 Respiratory Rate 20 11/07/23 06:41 Blood Pressure 168/115 11/07/23 06:41 O2 Sat by Pulse Oximetry 99 01/18/24 06:41 Pain Scale Pain Intensity 0 - Course Nursing assessment & vital signs reviewed: Yes <SALOME FRENCH - Last Filed: 11/07/23 06:56> Ordered Tests: Active Orders 24 hr Category Date Time Status IV Insertion STAT Care 11/07/23 06:56 Active ABDOMEN AND PELVIS W/0 CONTRAS [CT] Stat Exams 11/07/23 06:57 Completed ACETAMINOPHEN Stat Lab 11/07/23 07:10 Completed AMYLASE Stat Lab 11/07/23 07:10 Completed CBC W DIFF Stat Lab 11/07/23 07:10 Completed CMP Stat Lab 11/07/23 07:10 Completed CULTURE,URINE Stat Lab 11/07/23 08:11 Received ETHYL ALCOHOL Stat Lab 11/07/23 07:10 Completed LIPASE Stat Lab 11/07/23 07:10 Completed MAGNESIUM Stat Lab 11/07/23 07:10 Completed PROTIME WITH INR Stat Lab 11/07/23 07:10 Completed PTT Stat Lab 11/07/23 07:10 Completed SALICYLATE Stat Lab 11/07/23 07:10 Completed UA W/RFX UR CULTURE Stat Lab 11/07/23 08:11 Completed Urine Triage Profile Stat Lab 11/07/23 08:11 Completed Medication Summary Discontinued Medications Generic Name Dose Route Start Last Admin Trade Name Freq PRN Reason Stop Dose Admin Sodium Chloride 1,000 mls @ 999 mls/hr 11/07/23 06:56 11/07/23 08:16 Sodium Chloride 0.9% 1000 Ml IV 11/07/23 07:56 Infused .Q1H1M STA Infusion Sodium Chloride Confirm 11/07/23 07:11 Sodium Chloride 0.9% 1000 Ml Administered 11/07/23 07:12 Dose 1,000 mls @ ud .ROUTE .STK-MED ONE Lorazepam 1 mg 11/07/23 06:59 11/07/23 07:14 Lorazepam 2 Mg/1 Ml 2 Mg Vial IV 11/07/23 07:00 1 mg STAT ONE Administration Lorazepam Confirm 11/07/23 07:11 Lorazepam 2 Mg/1 Ml 2 Mg Vial Administered 11/07/23 07:12 Dose 2 mg .ROUTE .STK-MED ONE Pantoprazole Sodium 40 mg 11/07/23 07:20 11/07/23 07:40 Pantoprazole 40 Mg Vial IV 11/07/23 07:21 40 mg STAT ONE Administration Pantoprazole Sodium Confirm 11/07/23 07:35 Pantoprazole 40 Mg Vial Administered 11/07/23 07:36 Dose 40 mg IV .STK-MED ONE Trimethoprim/Sulfamethoxazole 1 tab 11/07/23 09:55 11/07/23 09:58 Smz/Tmp Ds Tablet 1 Tablet PO 11/07/23 09:56 Not Given STAT STA Lab/Rad Data: Laboratory Result Diagrams 11/07/23 07:10 11/07/23 07:10 Laboratory Results 11/07/23 11/07/23 11/07/23 Range/Units 08:11 08:11 07:10 WBC (4.0-10.5) x10^3/uL RBC (4.1-5.6) x10^6/uL Hgb (12.5-18.0) g/dL Hct (42-50) % MCV (78-100) fL MCH (26-32) pg MCHC (32-36) g/dL RDW (11.5-14.0) % Plt Count (150-450) x10^3/uL MPV (7.5-11.0) fL Gran % (36.0-66.0) % Immature Gran % (Auto) (0.00-0.4) % Nucleat RBC Rel Count (0.00-0.1) % Eos # (Auto) (0-0.5) x10^3/uL Immature Gran # (Auto) (0.00-0.03) x10^3u/L Absolute Lymphs (auto) (1.0-4.6) x10^3/uL Absolute Monos (auto) (0.0-1.3) x10^3/uL Absolute Nucleated RBC (0.00-0.01) x10^3u/L Lymphocytes % (24.0-44.0) % Monocytes % (0.0-12.0) % Eosinophils % (0.00-5.0) % Basophils % (0.0-0.4) % Absolute Granulocytes (1.4-6.9) x10^3/uL Basophils # (0-0.4) x10^3/uL PT 9.3 L (9.4-12.5) SECONDS INR 0.84 (0.8-3.0) APTT 22.8 L (25.1-36.5) SECONDS Sodium (137-145) mmol/L Potassium (3.5-5.1) mmol/L Chloride (98-107) mmol/L Carbon Dioxide (22-30) mmol/L Anion Gap (5-15) MEQ/L BUN (9-20) mg/dL Creatinine (0.66-1.25) mg/dL Estimated GFR ML/MIN Glucose (74-106) mg/dL Calcium (8.4-10.2) mg/dL Magnesium (1.6-2.3) mg/dL Total Bilirubin (0.2-1.3) mg/dL AST (17-59) U/L ALT (0-50) U/L Alkaline Phosphatase (38-126) U/L Serum Total Protein (6.3-8.2) g/dL Albumin (3.5-5.0) g/dL Amylase (30-110) U/L Lipase (23-300) U/L Urine Color Yellow (Yellow) Urine Appearance Clear (Clear) Urine pH 6.5 (4.6-8.0) Ur Specific [place] 1.015 (1.005-1.030) Urine Protein 300 A (Negative) Urine Glucose (UA) Negative (Negative) mg/dL Urine Ketones Trace A (Negative) Urine Blood Large A (Negative) Urine Nitrite Negative (Negative) Urine Bilirubin Negative (Negative) Urine Urobilinogen 1.0 A (0.2) mg/dL Ur Leukocyte Esterase Negative (Negative) U Hyaline Cast (Auto) 3-5 A (0-2) /LPF Urine Microscopic RBC 21-50 A (0-5) /HPF Urine Microscopic WBC 0-2 (0-5) /HPF Ur Epithelial Cells None Seen (None Seen) /HPF Urine Bacteria None Seen (None Seen) /HPF Urine Culture Reflexed YES (NO) Salicylates (2-20) mg/dL Urine Opiates Level NEGATIVE (NEGATIVE) Ur Methadone NEGATIVE (NEGATIVE) Acetaminophen (10-30) ug/ml Urine Barbiturates NEGATIVE (NEGATIVE) Ur Phencyclidine (PCP) NEGATIVE (NEGATIVE) Urine Amphetamine NEGATIVE (NEGATIVE) U Benzodiazepine Level NEGATIVE (NEGATIVE) Urine Cocaine NEGATIVE (NEGATIVE) Urine Marijuana (THC) POSITIVE A (NEGATIVE) Ethyl Alcohol (0-10) mg/dL 11/07/23 11/07/23 Range/Units 07:10 07:10 WBC 5.2 (4.0-10.5) x10^3/uL RBC 4.81 (4.1-5.6) x10^6/uL Hgb 14.1 (12.5-18.0) g/dL Hct 41.3 L (42-50) % MCV 85.9 (78-100) fL MCH 29.3 (26-32) pg MCHC 34.1 (32-36) g/dL RDW 13.3 (11.5-14.0) % Plt Count 173 (150-450) x10^3/uL MPV 8.9 (7.5-11.0) fL Gran % 71.3 H (36.0-66.0) % Immature Gran % (Auto) 0.2 (0.00-0.4) % Nucleat RBC Rel Count 0.0 (0.00-0.1) % Eos # (Auto) 0.10 (0-0.5) x10^3/uL Immature Gran # (Auto) 0.01 (0.00-0.03) x10^3u/L Absolute Lymphs (auto) 0.90 L (1.0-4.6) x10^3/uL Absolute Monos (auto) 0.45 (0.0-1.3) x10^3/uL Absolute Nucleated RBC 0.00 (0.00-0.01) x10^3u/L Lymphocytes % 17.5 L (24.0-44.0) % Monocytes % 8.7 (0.0-12.0) % Eosinophils % 1.9 (0.00-5.0) % Basophils % 0.4 (0.0-0.4) % Absolute Granulocytes 3.67 (1.4-6.9) x10^3/uL Basophils # 0.02 (0-0.4) x10^3/uL PT (9.4-12.5) SECONDS INR (0.8-3.0) APTT (25.1-36.5) SECONDS Sodium 134 L (137-145) mmol/L Potassium 3.9 (3.5-5.1) mmol/L Chloride 103 (98-107) mmol/L Carbon Dioxide 25 (22-30) mmol/L Anion Gap 9.9 (5-15) MEQ/L BUN 9 (9-20) mg/dL Creatinine 0.94 (0.66-1.25) mg/dL Estimated GFR 117.5 ML/MIN Glucose 112 H (74-106) mg/dL Calcium 9.6 (8.4-10.2) mg/dL Magnesium 1.9 (1.6-2.3) mg/dL Total Bilirubin 0.60 (0.2-1.3) mg/dL AST 253 H (17-59) U/L ALT 214 H (0-50) U/L Alkaline Phosphatase 79 (38-126) U/L Serum Total Protein 6.5 (6.3-8.2) g/dL Albumin 3.9 (3.5-5.0) g/dL Amylase 68 (30-110) U/L Lipase 126 (23-300) U/L Urine Color (Yellow) Urine Appearance (Clear) Urine pH (4.6-8.0) Ur Specific [place] (1.005-1.030) Urine Protein (Negative) Urine Glucose (UA) (Negative) mg/dL Urine Ketones (Negative) Urine Blood (Negative) Urine Nitrite (Negative) Urine Bilirubin (Negative) Urine Urobilinogen (0.2) mg/dL Ur Leukocyte Esterase (Negative) U Hyaline Cast (Auto) (0-2) /LPF Urine Microscopic RBC (0-5) /HPF Urine Microscopic WBC (0-5) /HPF Ur Epithelial Cells (None Seen) /HPF Urine Bacteria (None Seen) /HPF Urine Culture Reflexed (NO) Salicylates 1.6 L (2-20) mg/dL Urine Opiates Level (NEGATIVE) Ur Methadone (NEGATIVE) Acetaminophen < 10 L (10-30) ug/ml Urine Barbiturates (NEGATIVE) Ur Phencyclidine (PCP) (NEGATIVE) Urine Amphetamine (NEGATIVE) U Benzodiazepine Level (NEGATIVE) Urine Cocaine (NEGATIVE) Urine Marijuana (THC) (NEGATIVE) Ethyl Alcohol < 10 (0-10) mg/dL <SALOME FRENCH - Last Filed: 11/07/23 06:56> - Progress Progress: improved Counseled pt/family regarding: lab results, diagnosis, rad results <TRISTEN SANFORD - Last Filed: 11/07/23 10:50> - Progress Progress Note: 11/07/23 07:12 Case discussed with & signed over to Dr. Sanford @ 0710. (SALOME FRENCH) 11/07/23 09:58 Patient is checked out to me at shift change from Dr. French with pending workup. Patient presented with symptoms of alcohol withdrawal and wants to quit, wants to go for rehab at [facility]. Patient is given benzodiazepine x 1, during my evaluation feeling much better. Did not appreciate any tremors. Holding conversation without any issue. Workup showed normal white count, fairly unrema rkable chemistries except for elevated transaminases with normal bilirubin. Patient is also given Protonix for some abdominal discomfort which I believe is secondary to long history of alcohol abuse and having some element of acid peptic disease. CT abdomen pelvis showed hepatosplenomegaly but no other acute abdominal pelvic findings. Last drink is more than 12 hours now. Patient is medically cleared otherwise and is ready to go to [facility] for further evaluation and rehab. 11/07/23 10:[address] Dennis at [facility]. (TRISTEN SANFORD) Medical Desision Making - Diagnostic Testing Diagnostic test were ordered, analyzed, and reviewed by me: Yes Radiological Interpretation: Reviewed by me - Risk of complications The pt has a mod risk of morbidity or mortality based on: Need for prescription drug management The pt has a high risk of morbidity or mortality based on: Decision regarding hospitilization or escalation of hosp level of care <TRISTEN SANFORD - Last Filed: 11/07/23 10:50> <SALOME FRENCH - Last Filed: 11/07/23 06:56> - Departure Departure Disposition: Transfer Critical Care Time: No <TRISTEN SANFORD - Last Filed: 11/07/23 10:50> - Departure Clinical Impression: Alcohol withdrawal, Elevated transaminase level Condition: Stable Referrals: BOBBY JONES, FIRE BEHAVIOR ANALYST [Primary Care Provider] - Follow up/PCP as directed
[2023-11-07] MEDS ORDERED: Ativan 2 MG/1 ML VIAL ONE (07:11)
[2023-11-07] MEDS ORDERED: Sodium Chloride 0.9% 1000 ML 1,000 ML ONE (07:11)
[2023-11-07] MEDS ORDERED: PROTONIX 40 MG IV IV ONE ×2 (07:20→07:35)
[2023-11-07 07:32] LABS: INR 0.84 (0.8-3.0); PROTIME 9.3 SECONDS (9.4-12.5); PTT 22.8 SECONDS (25.1-36.5)
[2023-11-07 07:35] LABS: ACETAMINOPHEN < 10 ug/ml (10-30); ALBUMIN 3.9 g/dL (3.5-5.0); ALKALINE PHOSPHATASE 79 U/L (38-126); AMYLASE 68 U/L (30-110); ANION GAP 9.9 MEQ/L (5-15); BLOOD UREA NITROGEN 9 mg/dL (9-20); CHLORIDE 103 mmol/L (98-107); Calcium 9.6 mg/dL (8.4-10.2); Carbon Dioxide 25 mmol/L (22-30); Creatinine 1 0.94 mg/dL (0.66-1.25); EST GLOMERULAR FILTRATION RATE 117.5 ML/MIN; ETHYL ALCOHOL < 10 mg/dL (0-10); Glucose 112 mg/dL (74-106); LIPASE 126 U/L (23-300); MAGNESIUM 1.9 mg/dL (1.6-2.3); Potassium 3.9 mmol/L (3.5-5.1); SALICYLATE 1.6 mg/dL (2-20); SGOT/AST 253 U/L (17-59); SGPT/ALT 214 U/L (0-50); SODIUM 134 mmol/L (137-145); Total Protein 6.5 g/dL (6.3-8.2)
[2023-11-07 07:43] LABS: Absolute Neutrophil Ct (ANC) 3.67 x10^3/uL (1.4-6.9); BASOPHIL % 0.4 % (0.0-0.4); Basophil (Absolute #) 0.02 x10^3/uL (0-0.4); Eosinophil % 1.9 % (0.00-5.0); Hematocrit 41.3 % (42-50); Hemoglobin 14.1 g/dL (12.5-18.0); IMMATURE GRAN # 0.01 x10^3u/L (0.00-0.03); IMMATURE GRAN % 0.2 % (0.00-0.4); Lymphocytes % 17.5 % (24.0-44.0); Mean Cell Volume 85.9 fL (78-100); Mean Corpuscular Hemoglobin 29.3 pg (26-32); Mean Corpuscular Hgb Concent. 34.1 g/dL (32-36); Mean Platelet Volume 8.9 fL (7.5-11.0); Monocyte (Absolute #) 0.45 x10^3/uL (0.0-1.3); Monocytes % 8.7 % (0.0-12.0); Neutrophil % 71.3 % (36.0-66.0); Platelet Count 173 x10^3/uL (150-450); Red Blood Count 4.81 x10^6/uL (4.1-5.6); Red Cell Distribution Width 13.3 % (11.5-14.0); White Blood Count 5.2 x10^3/uL (4.0-10.5)
--- NOTE | 2023-11-07 08:40 | XRAY ---
Indication: Abdomen pain. Alcohol withdrawal. Multiple contiguous axial images obtained through the abdomen and pelvis without contrast. Comparison: None Lung bases clear. Heart not enlarged. Noncontrasted stomach and bowel loops appear nonobstructed with normal appendix. 21 cm fatty hepatomegaly and 13.8 cm splenomegaly. No free fluid/air. Remaining liver, gallbladder, pancreas, spleen, adrenal glands, kidneys, ureters, bladder, and aorta are unremarkable for noncontrast exam. Osseous structures intact. No ventral or inguinal hernias. Impression: Fatty hepatomegaly and splenomegaly. Remaining CT abdomen/pelvis without contrast exam is negative.
[2023-11-07 08:43] LABS: Appearance Clear (Clear); Bacteria None Seen /HPF (None Seen); Bilirubin Negative (Negative); Blood Large (Negative); Epithelial Cells None Seen /HPF (None Seen); Glucose, Urine Negative (Negative); Ketones Trace (Negative); Leukocyte Esterase Negative (Negative); Nitrite Negative (Negative); Ph 6.5 (4.6-8.0); Protein,Urine Dip 300 (Negative); RBC 21-50 /HPF (0-5); Specific Gravity 1.015 (1.005-1.030); WBC 0-2 /HPF (0-5)
[2023-11-07 08:44] LABS: ADD URINE CULTURE? YES (NO)
[2023-11-07 09:09] LABS: Amphetamine,Urine NEGATIVE (NEGATIVE); Barbiturate,Urine NEGATIVE (NEGATIVE); Benzodiazepine,Urine NEGATIVE (NEGATIVE); Cocaine,Urine NEGATIVE (NEGATIVE); Methadone,Urine NEGATIVE (NEGATIVE); Opiate,Urine NEGATIVE (NEGATIVE); PCP,Urine NEGATIVE (NEGATIVE); THC,Urine POSITIVE (NEGATIVE)
[2023-11-07] MEDS ORDERED: BACTRIM DS TABLET PO STA (09:55)
[2023-11-07 10:29] VITALS: O2SAT 97
[2023-11-07 13:15] VITALS: BP 121/80; PULSE 90; RESP 14
[2023-11-07] MEDS ORDERED: Ativan 1 MG PO ONE (13:23)
== END 2023-11-07 13:35 ==
LOC: ED 06:35
DX: F10.239 Alcohol dependence with withdrawal, unspecified (principal); R74.01 Elevation of levels of liver transaminase levels; R10.84 Generalized abdominal pain; K92.1 Melena; R61 Generalized hyperhidrosis
CPT/HCPCS: 36000; 36415; 74176; 80053; 80143; 80179; 80307; 81001; 82077; 82150; 83690; 83735; 85025; 85610; 85730; 87086; 96374; 99285; J2060

== ENCOUNTER 2023-12-18 01:17 | Emergency (ER) | payer MEDICAID ==
[2023-12-18 02:25] LABS: Absolute Neutrophil Ct (ANC) 2.89 x10^3/uL (1.4-6.9); BASOPHIL % 0.9 % (0.0-0.4); Basophil (Absolute #) 0.05 x10^3/uL (0-0.4); Eosinophil % 4.2 % (0.00-5.0); Eosinophil (Absolute #) 0.24 x10^3/uL (0-0.5); Hematocrit 46.5 % (42-50); Hemoglobin 15.7 g/dL (12.5-18.0); IMMATURE GRAN # 0.01 x10^3u/L (0.00-0.03); IMMATURE GRAN % 0.2 % (0.00-0.4); Lymphocyte (Absolute #) 2.05 x10^3/uL (1.0-4.6); Lymphocytes % 36.2 % (24.0-44.0); Mean Cell Volume 87.1 fL (78-100); Mean Corpuscular Hemoglobin 29.4 pg (26-32); Mean Corpuscular Hgb Concent. 33.8 g/dL (32-36); Mean Platelet Volume 8.3 fL (7.5-11.0); Monocyte (Absolute #) 0.42 x10^3/uL (0.0-1.3); Monocytes % 7.4 % (0.0-12.0); Neutrophil % 51.1 % (36.0-66.0); Platelet Count 318 x10^3/uL (150-450); Red Blood Count 5.34 x10^6/uL (4.1-5.6); Red Cell Distribution Width 12.8 % (11.5-14.0); White Blood Count 5.7 x10^3/uL (4.0-10.5)
[2023-12-18 02:28] VITALS: TEMP 96.1
[2023-12-18 02:50] LABS: ALBUMIN 4.3 g/dL (3.5-5.0); ALKALINE PHOSPHATASE 80 U/L (38-126); ANION GAP 16.5 MEQ/L (5-15); BLOOD UREA NITROGEN 5 mg/dL (9-20); CHLORIDE 105 mmol/L (98-107); Calcium 8.6 mg/dL (8.4-10.2); Carbon Dioxide 26 mmol/L (22-30); Creatinine 1 1.13 mg/dL (0.66-1.25); EST GLOMERULAR FILTRATION RATE 94.3 ML/MIN; ETHYL ALCOHOL 300 mg/dL (0-10); Glucose 111 mg/dL (74-106); LIPASE 80 U/L (23-300); NT PRO BNPII < 20.0 pg/mL (<300); Potassium 3.5 mmol/L (3.5-5.1); SGOT/AST 183 U/L (17-59); SGPT/ALT 235 U/L (0-50); SODIUM 144 mmol/L (137-145); Total Protein 7.1 g/dL (6.3-8.2)
[2023-12-18 02:54] LABS: IFOB TEST RESULTS POSITIVE (NEGATIVE)
[2023-12-18 04:20] LABS: Appearance Clear (Clear); Bacteria None Seen /HPF (None Seen); Bilirubin Negative (Negative); Blood Moderate (Negative); Epithelial Cells None Seen /HPF (None Seen); Glucose, Urine Negative (Negative); Hyaline Casts NONE SEEN /LPF (0-2); Ketones Negative (Negative); Leukocyte Esterase Negative (Negative); Nitrite Negative (Negative); Protein,Urine Dip 300 (Negative); RBC 21-50 /HPF (0-5); Specific Gravity >=1.030 (1.005-1.030); WBC 0-2 /HPF (0-5)
[2023-12-18 04:21] LABS: ADD URINE CULTURE? YES (NO)
--- NOTE | 2023-12-18 04:24 | XRAY ---
CLINICAL HISTORY: pain TECHNIQUE: CT of the abdomen and pelvis was performed with axial images as well as sagittal and coronal reconstruction images without intravenous contrast. COMPARISON: 11/07/2023. FINDINGS: Scanned lung bases are unremarkable. The liver is average in size showing diffuse hypodense parenchyma. No definite focal lesions by non-contrast criteria. No intrahepatic biliary radicle dilations. Unremarkable appearing gallbladder with no stones wall thickening or pericholecystic inflammatory changes or fluid. Unremarkable appearing pancreas. No pancreatic mass or ductal dilatation is seen. The spleen is of average size, a possible small hypodense focal lesion is appreciated measuring about 8 x 8 mm. The adrenal glands are normal. The kidneys appear unremarkable with no calculi, cysts masses or hydronephrosis. Average caliber of both ureters. The urinary bladder is partially filled, no calculi are noted. The prostate is of average size. Unremarkable appearance of the stomach. The large and small bowel loops are of average caliber with no evidence of obstruction. A normal appendix is seen. No suspiciously enlarged mesenteric or retroperitoneal lymph nodes. No free fluid. IMPRESSION: 1. No acute abnormality detected. 2. Fatty liver changes. Lab correlation is advised. 3. Barely appreciable possible small hypodense splenic focal lesion (also noted in the previous study, could represent a benign lesion), for evaluation with contrast study only if warranted. 4. No significant time interval changes. Electronically Signed by: Tyrone Ness MD. (12/18/2023 04:20:30 EST)
--- NOTE | 2023-12-18 04:27 | XRAY ---
CLINICAL HISTORY: epig pain, elev d dimer-PE protocol TECHNIQUE: Axial CT images of the chest were acquired with intravenous contrast administration following PE protocol. Coronal and sagittal reconstructions were also obtained. COMPARISON: CT dated 09/03/2023. FINDINGS: Limited study as suboptimal image acquisition timing, the contrast is seen in the aorta and pulmonary trunk simultaneously. The main pulmonary trunk, right and left main pulmonary arteries as well as segmental branches appear of normal caliber without evidence of any filling defect. No evidence of pulmonary arterial thrombosis was identified. Patent ascending aorta, aortic arch, and descending aorta showing normal caliber and smooth outline. No evidence of aortic coarctation or dissection. No aneurysmal dilatation. The scanned pulmonary parenchyma shows no definite consolidative lesions. No free or encysted pleural effusion. Heart size is normal, and there is no pericardial effusion. No pathologically enlarged mediastinal, hilar, or axillary lymph node was identified. There is no definite mass lesion in the chest wall. The scanned upper abdomen revealed fatty liver changes. IMPRESSION: 1. No evidence of pulmonary arterial thromboembolic disease. No interval changes. Electronically Signed by: Tyrone Ness MD. (12/18/2023 04:22:05 EST)
[2023-12-18 04:42] LABS: Amphetamine,Urine NEGATIVE (NEGATIVE); Barbiturate,Urine NEGATIVE (NEGATIVE); Benzodiazepine,Urine NEGATIVE (NEGATIVE); Cocaine,Urine NEGATIVE (NEGATIVE); Methadone,Urine NEGATIVE (NEGATIVE); Opiate,Urine NEGATIVE (NEGATIVE); PCP,Urine NEGATIVE (NEGATIVE); THC,Urine POSITIVE (NEGATIVE)
[2023-12-18 05:04] VITALS: O2SAT 98
[2023-12-18 06:08] VITALS: BP 128/88; PULSE 84; RESP 16
[2023-12-18] MEDS ORDERED: PROTONIX 40 MG IV IV ONE (06:27)
[2023-12-18] MEDS ORDERED: Sodium Chloride 0.9% 1000 ML 1,000 ML ONE (06:27)
[2023-12-18] MEDS: Sodium Chloride 0.9% 1000 ML 1,000 ML IV STA (06:31)
[2023-12-18] MEDS: PROTONIX 40 MG IV IV ONE (06:32)
--- NOTE | 2023-12-18 06:32 | ERPHSYRPT ---
- History of Present Illness Time Seen by Provider: 12/18/23 02:00 Source: patient Exam Limitations: no limitations Patient Subjective Stated Complaint: pt reports a variety of symptoms that have been intermittent for the last 3-4mos including lightheadedness (unable to de scribe further), nausea, vomiting, black tarry stools, and abdominal pain. states vomited 1ox/day for last 4 days, had 10 black stools in last 4 days, has been nauseated continuously for last 4 days- unable to eat or drink anything without throwing up (does report drinking a bottle of wine without difficulty approx 10 hrs ago and has drank 20-40 drinks of either vodka or beer everyday without difficulty). pt reports no blood in vomit. Triage Nursing Assessment: pt ambulated into room 9 independently with slow steady gait. pt is alert and oriented times three, speaking very quickly, erratic jerky movements of body, not making eye contact. pt is able to move all extremities, able to speak in complete sentences, and with resp even and unlabored. pupils 10mm, equal, round, and reactive to light. skin warm, dry, and intact. heart sounds present and regular. bilat anterior/posterior lung sounds clear throughout. bilat radial and pedal pulses palpable, no edema or JVD noted. all extremities with normal color, cap refill, and sensation. pt denies difficulty with urination, sob, difficulty breathing, cp, or LOC. Physician History: 23-year-old male presents to our ED for evaluation of lightheadedness, epigastric pain nausea vomiting and dark tarry stools. Patient states symptoms have been intermittent over the past 3 to 4 months. Patient has seen his primary care doctor regarding these problems. Patient is currently scheduled for a gallbladder ultrasound to be performed today at 11 AM. Patient reports drinking wine and vodka. Patient states he drank a whole bottle of wine just prior to arrival. Patient is epigastric pain is localized. Pain somewhat worse with palpation. Pain improves with rest. Patient declined pain medication. He is not actively nauseous at this moment. Patient states he is otherwise healthy. He voices no other complaints or concerns at this time. Portions of this note were created with voice recognition technology. There may be grammatical, spelling, punctuation or sound alike errors Timing/Duration: today Severity: moderate Modifying Factors: Improves With: nothing Associated Symptoms: nausea, vomiting, No shortness of breath, No fever, No syncope Allergies/Adverse Reactions: Penicillins Allergy (Verified 12/18/23 01:46) Home Medications: Fluoxetine HCl 20 mg [Prozac 20 MG] 2 cap PO DAILY 09/03/23 [History] hydrOXYzine HCL [Hydroxyzine HCl] 50 mg PO DAILY 11/07/23 [History] Buspirone HCl 5 mg [Buspar 5 mg] 3 tab PO TID 12/18/23 [History] Clonidine HCl 0.1 mg [Clonidine 0.1 mg Tablet] 0.2 mg PO HS 12/18/23 [History] Gabapentin [Neurontin ] 300 mg PO TID 12/18/23 [History] Lisinopril 10 mg [Zestril 10 MG] 10 mg PO DAILY 12/18/23 [History] Hx Tetanus, Diphtheria Vaccination/Date Given: Yes Hx Influenza Vaccination/Date Given: No Hx Pneumococcal Vaccination/Date Given: No Immunizations Up to Date: No Travel Risk - International Travel Have you traveled outside of the country in past 3 weeks: No - Coronavirus Screening Are you exhibiting any of the following symptoms?: No Close contact with a COVID-19 positive Pt in past 14-21 Days: No - Vaccine Status Have you recieved a Covid-19 vaccination: Yes 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 - Vaccination Dates Dates if Unknown: unknown - Review of Systems Constitutional: No Symptoms, No Fever, No Chills Eyes: No Symptoms Ears, Nose, & Throat: No Symptoms Respiratory: No Symptoms, No Cough, No Dyspnea Cardiac: No Symptoms, No Chest Pain, No Edema, No Syncope Abdominal/Gastrointestinal: No Symptoms, No Abdominal Pain, No Nausea, No Vomiting, No Diarrhea Genitourinary Symptoms: No Symptoms, No Dysuria Musculoskeletal: No Symptoms, No Back Pain, No Neck Pain Skin: No Symptoms, No Rash Neurological: No Symptoms, No Dizziness, No Focal Weakness, No Sensory Changes Psychological: No Symptoms Endocrine: No Symptoms Hematologic/Lymphatic: No Symptoms Immunological/Allergic: No Symptoms All Other Systems: Reviewed and Negative - Past Medical History Pertinent Past Medical History: Yes Neurological History: No Pertinent History, Epilepsy ENT History: No Pertinent History Cardiac History: No Pertinent History Respiratory History: Pneumonia Endocrine Medical History: No Pertinent History Musculoskeletal History: No Pertinent History GI Medical History: Hernia History: No Pertinent History Psycho-Social History: Anxiety, Bipolar, Depression, Other Male Reproductive Disorders: No Pertinent History Other Medical History: Autism, reactive attachment disorder - Past Surgical History Past Surgical History: Yes Neuro Surgical History: No Pertinent History Cardiac: No Pertinent History Respiratory: No Pertinent History Gastrointestinal: Hernia Repair Genitourinary: No Pertinent History Musculoskeletal: No Pertinent History Male Surgical History: No Pertinent History Other Surgical History: Hernia repair x2 - Social History Smoking Status: Never smoker Exposure to second hand smoke: No Drug Use: none Patient Lives Alone: No - Nursing Vital Signs Nursing Vital Signs: Initial Vital Signs Temperature 96.1 F 12/18/23 01:51 Pulse Rate 95 H 12/18/23 01:51 Respiratory Rate 18 12/18/23 01:51 Blood Pressure 187/133 12/18/23 01:51 O2 Sat by Pulse Oximetry 98 12/18/23 01:51 Pain Scale Pain Intensity 6 - Physical Exam General Appearance: no apparent distress, alert Eye Exam: PERRL/EOMI, eyes nml inspection, other (Dilated pupils up to 10 mm) Ears, Nose, Throat Exam: normal ENT inspection, TMs normal, pharynx normal, moist mucous membranes Neck Exam: normal inspection, non-tender, supple, full range of motion Respiratory Exam: normal breath sounds, lungs clear, airway intact, No respiratory distress Cardiovascular Exam: regular rate/rhythm, normal heart sounds, normal peripheral pulses Gastrointestinal/Abdomen Exam: soft, normal bowel sounds, tenderness, other (Mild epigastric tenderness to palpation), No mass Back Exam: normal inspection, normal range of motion, No CVA tenderness, No vertebral tenderness Extremity Exam: normal inspection, normal range of motion, pelvis stable Neurologic Exam: alert, oriented x 3, cooperative, normal mood/affect, nml cerebellar function, nml station & gait, sensation nml, No motor deficits Skin Exam: normal color, warm, dry, No rash Lymphatic Exam: No adenopathy SpO2 Interpretation: normal SpO2: 98 O2 Delivery: Room Air - Course Nursing assessment & vital signs reviewed: Yes - CT Exams Chest CT Interpretation: Tele-radiologist Report (CTA chest negative for PE. No acute findings) Abdomen/Pelvis CT Interpretation: Tele-radiologist Report (Unchanged lesion observed on the liver likely benign fatty liver otherwise no acute findings on CT scan) Ordered Tests: Active Orders 24 hr Category Date Time Status Sign Language Instructor STAT Care 12/18/23 01:43 Active IV Insertion STAT Care 12/18/23 01:42 Active Pulse Oximetry (ED) STAT Care 12/18/23 01:42 Active ABDOMEN AND PELVIS W/0 CONTRAS [CT] Stat Exams 12/18/23 03:13 Completed CHEST WITH CONTRAST [CT] Stat Exams 12/18/23 03:16 Completed CBC W DIFF Stat Lab 12/18/23 02:20 Completed CMP Stat Lab 12/18/23 02:20 Completed CULTURE,URINE Stat Lab 12/18/23 04:02 Received D-DIMER QUANTITATIVE Stat Lab 12/18/23 02:20 Completed ETHYL ALCOHOL Stat Lab 12/18/23 02:20 Completed LIPASE Stat Lab 12/18/23 02:20 Completed NT PRO BNPII Stat Lab 12/18/23 02:20 Completed Occult Blood-Fecal Screen (Diagnostic) [OB-FECAL SCREEN Lab 12/18/23 02:50 Completed ] Stat TROPONIN Q4H Lab 12/18/23 02:20 Completed TROPONIN Q4H Lab 12/18/23 05:34 Completed TROPONIN Q4H Lab 12/18/23 09:45 Ordered UA W/RFX UR CULTURE Stat Lab 12/18/23 04:02 Completed Urine Triage Profile Stat Lab 12/18/23 04:02 Completed Medication Summary Generic Name Dose Route Start Last Admin Trade Name Freq PRN Reason Stop Dose Admin Sodium Chloride 1,000 mls @ 999 mls/hr 12/18/23 06:25 12/18/23 06:31 Sodium Chloride 0.9% 1000 Ml IV 12/18/23 07:25 999 mls/hr .Q1H1M STA Administration Discontinued Medications Generic Name Dose Route Start Last Admin Trade Name Freq PRN Reason Stop Dose Admin Sodium Chloride Confirm 12/18/23 06:27 Sodium Chloride 0.9% 1000 Ml Administered 12/18/23 06:28 Dose 1,000 mls @ ud .ROUTE .STK-MED ONE Pantoprazole Sodium 40 mg 12/18/23 06:26 12/18/23 06:32 Pantoprazole 40 Mg Vial IV 12/18/23 06:27 40 mg STAT ONE Administration Pantoprazole Sodium Confirm 12/18/23 06:27 Pantoprazole 40 Mg Vial Administered 12/18/23 06:28 Dose 40 mg IV .STK-MED ONE Lab/Rad Data: Laboratory Result Diagrams 12/18/23 02:20 12/18/23 02:20 Laboratory Results 12/18/23 12/18/23 12/18/23 Range/Units 05:34 04:02 04:02 WBC (4.0-10.5) x10^3/uL RBC (4.1-5.6) x10^6/uL Hgb (12.5-18.0) g/dL Hct (42-50) % MCV (78-100) fL MCH (26-32) pg MCHC (32-36) g/dL RDW (11.5-14.0) % Plt Count (150-450) x10^3/uL MPV (7.5-11.0) fL Gran % (36.0-66.0) % Immature Gran % (Auto) (0.00-0.4) % Nucleat RBC Rel Count (0.00-0.1) % Eos # (Auto) (0-0.5) x10^3/uL Immature Gran # (Auto) (0.00-0.03) x10^3u/L Absolute Lymphs (auto) (1.0-4.6) x10^3/uL Absolute Monos (auto) (0.0-1.3) x10^3/uL Absolute Nucleated RBC (0.00-0.01) x10^3u/L Lymphocytes % (24.0-44.0) % Monocytes % (0.0-12.0) % Eosinophils % (0.00-5.0) % Basophils % (0.0-0.4) % Absolute Granulocytes (1.4-6.9) x10^3/uL Basophils # (0-0.4) x10^3/uL D-Dimer (0.0-0.50) mg/L Sodium (137-145) mmol/L Potassium (3.5-5.1) mmol/L Chloride (98-107) mmol/L Carbon Dioxide (22-30) mmol/L Anion Gap (5-15) MEQ/L BUN (9-20) mg/dL Creatinine (0.66-1.25) mg/dL Estimated GFR ML/MIN Glucose (74-106) mg/dL Calcium (8.4-10.2) mg/dL Total Bilirubin (0.2-1.3) mg/dL AST (17-59) U/L ALT (0-50) U/L Alkaline Phosphatase (38-126) U/L Troponin I < 0.012 (0.000-0.034) ng/mL NT-Pro-B Natriuret Pep (<300) pg/mL Serum Total Protein (6.3-8.2) g/dL Albumin (3.5-5.0) g/dL Lipase (23-300) U/L Urine Color Yellow (Yellow) Urine Appearance Clear (Clear) Urine pH 7.0 (4.6-8.0) Ur Specific [place] >=1.030 A (1.005-1.030) Urine Protein 300 A (Negative) Urine Glucose (UA) Negative (Negative) mg/dL Urine Ketones Negative (Negative) Urine Blood Moderate A (Negative) Urine Nitrite Negative (Negative) Urine Bilirubin Negative (Negative) Urine Urobilinogen 1.0 A (0.2) mg/dL Ur Leukocyte Esterase Negative (Negative) U Hyaline Cast (Auto) NONE SEEN (0-2) /LPF Urine Microscopic RBC 21-50 A (0-5) /HPF Urine Microscopic WBC 0-2 (0-5) /HPF Ur Epithelial Cells None Seen (None Seen) /HPF Urine Bacteria None Seen (None Seen) /HPF Urine Culture Reflexed YES (NO) Stl Occult Blood (IFOB) (NEGATIVE) Urine Opiates Level NEGATIVE (NEGATIVE) Ur Methadone NEGATIVE (NEGATIVE) Urine Barbiturates NEGATIVE (NEGATIVE) Ur Phencyclidine (PCP) NEGATIVE (NEGATIVE) Urine Amphetamine NEGATIVE (NEGATIVE) U Benzodiazepine Level NEGATIVE (NEGATIVE) Urine Cocaine NEGATIVE (NEGATIVE) Urine Marijuana (THC) POSITIVE A (NEGATIVE) Ethyl Alcohol (0-10) mg/dL 12/18/23 12/18/23 12/18/23 Range/Units 02:50 02:20 02:20 WBC (4.0-10.5) x10^3/uL RBC (4.1-5.6) x10^6/uL Hgb (12.5-18.0) g/dL Hct (42-50) % MCV (78-100) fL MCH (26-32) pg MCHC (32-36) g/dL RDW (11.5-14.0) % Plt Count (150-450) x10^3/uL MPV (7.5-11.0) fL Gran % (36.0-66.0) % Immature Gran % (Auto) (0.00-0.4) % Nucleat RBC Rel Count (0.00-0.1) % Eos # (Auto) (0-0.5) x10^3/uL Immature Gran # (Auto) (0.00-0.03) x10^3u/L Absolute Lymphs (auto) (1.0-4.6) x10^3/uL Absolute Monos (auto) (0.0-1.3) x10^3/uL Absolute Nucleated RBC (0.00-0.01) x10^3u/L Lymphocytes % (24.0-44.0) % Monocytes % (0.0-12.0) % Eosinophils % (0.00-5.0) % Basophils % (0.0-0.4) % Absolute Granulocytes (1.4-6.9) x10^3/uL Basophils # (0-0.4) x10^3/uL D-Dimer 1.36 H* (0.0-0.50) mg/L Sodium (137-145) mmol/L Potassium (3.5-5.1) mmol/L Chloride (98-107) mmol/L Carbon Dioxide (22-30) mmol/L Anion Gap (5-15) MEQ/L BUN (9-20) mg/dL Creatinine (0.66-1.25) mg/dL Estimated GFR ML/MIN Glucose (74-106) mg/dL Calcium (8.4-10.2) mg/dL Total Bilirubin (0.2-1.3) mg/dL AST (17-59) U/L ALT (0-50) U/L Alkaline Phosphatase (38-126) U/L Troponin I < 0.012 (0.000-0.034) ng/mL NT-Pro-B Natriuret Pep (<300) pg/mL Serum Total Protein (6.3-8.2) g/dL Albumin (3.5-5.0) g/dL Lipase (23-300) U/L Urine Color (Yellow) Urine Appearance (Clear) Urine pH (4.6-8.0) Ur Specific [place] (1.005-1.030) Urine Protein (Negative) Urine Glucose (UA) (Negative) mg/dL Urine Ketones (Negative) Urine Blood (Negative) Urine Nitrite (Negative) Urine Bilirubin (Negative) Urine Urobilinogen (0.2) mg/dL Ur Leukocyte Esterase (Negative) U Hyaline Cast (Auto) (0-2) /LPF Urine Microscopic RBC (0-5) /HPF Urine Microscopic WBC (0-5) /HPF Ur Epithelial Cells (None Seen) /HPF Urine Bacteria (None Seen) /HPF Urine Culture Reflexed (NO) Stl Occult Blood (IFOB) POSITIVE A (NEGATIVE) Urine Opiates Level (NEGATIVE) Ur Methadone (NEGATIVE) Urine Barbiturates (NEGATIVE) Ur Phencyclidine (PCP) (NEGATIVE) Urine Amphetamine (NEGATIVE) U Benzodiazepine Level (NEGATIVE) Urine Cocaine (NEGATIVE) Urine Marijuana (THC) (NEGATIVE) Ethyl Alcohol (0-10) mg/dL 12/18/23 12/18/23 Range/Units 02:20 02:20 WBC 5.7 (4.0-10.5) x10^3/uL RBC 5.34 (4.1-5.6) x10^6/uL Hgb 15.7 (12.5-18.0) g/dL Hct 46.5 (42-50) % MCV 87.1 (78-100) fL MCH 29.4 (26-32) pg MCHC 33.8 (32-36) g/dL RDW 12.8 (11.5-14.0) % Plt Count 318 (150-450) x10^3/uL MPV 8.3 (7.5-11.0) fL Gran % 51.1 (36.0-66.0) % Immature Gran % (Auto) 0.2 (0.00-0.4) % Nucleat RBC Rel Count 0.0 (0.00-0.1) % Eos # (Auto) 0.24 (0-0.5) x10^3/uL Immature Gran # (Auto) 0.01 (0.00-0.03) x10^3u/L Absolute Lymphs (auto) 2.05 (1.0-4.6) x10^3/uL Absolute Monos (auto) 0.42 (0.0-1.3) x10^3/uL Absolute Nucleated RBC 0.00 (0.00-0.01) x10^3u/L Lymphocytes % 36.2 (24.0-44.0) % Monocytes % 7.4 (0.0-12.0) % Eosinophils % 4.2 (0.00-5.0) % Basophils % 0.9 (0.0-0.4) % Absolute Granulocytes 2.89 (1.4-6.9) x10^3/uL Basophils # 0.05 (0-0.4) x10^3/uL D-Dimer (0.0-0.50) mg/L Sodium 144 (137-145) mmol/L Potassium 3.5 (3.5-5.1) mmol/L Chloride 105 (98-107) mmol/L Carbon Dioxide 26 (22-30) mmol/L Anion Gap 16.5 H (5-15) MEQ/L BUN 5 L (9-20) mg/dL Creatinine 1.13 (0.66-1.25) mg/dL Estimated GFR 94.3 ML/MIN Glucose 111 H (74-106) mg/dL Calcium 8.6 (8.4-10.2) mg/dL Total Bilirubin 0.40 (0.2-1.3) mg/dL AST 183 H (17-59) U/L ALT 235 H (0-50) U/L Alkaline Phosphatase 80 (38-126) U/L Troponin I (0.000-0.034) ng/mL NT-Pro-B Natriuret Pep < 20.0 (<300) pg/mL Serum Total Protein 7.1 (6.3-8.2) g/dL Albumin 4.3 (3.5-5.0) g/dL Lipase 80 (23-300) U/L Urine Color (Yellow) Urine Appearance (Clear) Urine pH (4.6-8.0) Ur Specific [place] (1.005-1.030) Urine Protein (Negative) Urine Glucose (UA) (Negative) mg/dL Urine Ketones (Negative) Urine Blood (Negative) Urine Nitrite (Negative) Urine Bilirubin (Negative) Urine Urobilinogen (0.2) mg/dL Ur Leukocyte Esterase (Negative) U Hyaline Cast (Auto) (0-2) /LPF Urine Microscopic RBC (0-5) /HPF Urine Microscopic WBC (0-5) /HPF Ur Epithelial Cells (None Seen) /HPF Urine Bacteria (None Seen) /HPF Urine Culture Reflexed (NO) Stl Occult Blood (IFOB) (NEGATIVE) Urine Opiates Level (NEGATIVE) Ur Methadone (NEGATIVE) Urine Barbiturates (NEGATIVE) Ur Phencyclidine (PCP) (NEGATIVE) Urine Amphetamine (NEGATIVE) U Benzodiazepine Level (NEGATIVE) Urine Cocaine (NEGATIVE) Urine Marijuana (THC) (NEGATIVE) Ethyl Alcohol 300 H (0-10) mg/dL - Progress Progress: improved Progress Note: Patient refused EKG Patient had a bowel movement in our ED. It appeared dark as patient described. Stool is Hemoccult positive. Patient advised that he would likely need a colonoscopy. Possible EGD to assess for gastritis. 12/18/23 06:52 23-year-old male presents to our ED for evaluation of epigastric pain. Patient advises that he drinks alcohol excessively. Physical exam reveals dilated pupils. Tenderness to palpation of the epigastrium. Blood alcohol level 300. Patient refused EKG. In light of patient's epigastric pain and tachycardia D- dimer ordered and resulted as elevated. CTA chest negative for PE and or acute pathology. CT abdomen pelvis essentially nonremarkable for acute findings. Patient had a dark bowel movement in our ED which was Hemoccult positive. In light of patient's excessive alcohol use this is likely secondary to alcoholic gastritis. Patient received IV fluids and Protonix. Patient declined pain medication. Patient is currently seeing his primary care doctor for these problems. Patient has a gallbladder ultrasound scheduled for this morning at 11 at [facility]. Patient currently sleeping. Vital stable We cannot discharge patient because he is currently intoxicated. Patient drove to our ED. We advised patient to call a friend or family member to pick him up as we cannot discharge while intoxicated. 12/18/23 06:53 Complexity problem addressed is moderate acute complicated No critical care time Complex of data reviewed and analyzed is moderate. Test ordered test reviewed. Results analyzed and correlated clinically with history and physical exam. Risk of complication and or risk of morbidity/mortality of patient management is moderate. Prescription for Protonix forwarded to patient's pharmacy. Patient advised to discontinue the alcohol use. Vital stable. Time spent to discharge patient is approximately 30 minutes. P [facility] of care established for shared decision making. No social determinants of health present impede follow-up. Portions of this note were created with voice recognition technology. There may be grammatical, spelling, punctuation or sound alike errors 12/18/23 06:56 Counseled pt/family regarding: lab results, diagnosis, need for follow-up, rad results - Departure Departure Disposition: Home Clinical Impression: Alcohol intoxication, Marijuana use, Microscopic hematuria, Hemoccult positive stool, Dehydration, GI bleed, Fatty liver, Epigastric pain, Alcoholic gastritis with bleeding, Transaminitis Condition: Stable Critical Care Time: No Referrals: BOBBY JONES DIRECTOR OF PHYSICAL SECURITY [Primary Care Provider] - Follow up/PCP as directed Additional Instructions: Your testing in the emergency department revealed a gastrointestinal bleed that quires further evaluation. He will require a colonoscopy and an EGD to further evaluate your GI bleeding. Discharge/Care Plan MANJEET FLOWER was seen on 12/18/23 in the Emergency Room. The patient was counseled regarding Diagnosis,Lab results, Imaging studies, need for follow up and when to return to the Emergency Room. Prescriptions given: Discharge Note I have spoken with the patient and/or caregivers. I have explained the patient's condition, diagnosis and treatment plan based on the information available to me at this time. I have answered the patient's and/or caregiver's questions and addressed any concerns. The patient and/or caregivers have as good understanding of the patient's diagnosis, condition and treatment plan as can be expected at this point. The vital signs have been stable. The patient's condition is stable and appropriate for discharge from the emergency department. The patient will pursue further outpatient evaluation with the primary care physician or other designated or consulting physician as outlined in the discharge instructions. The patient and/or caregivers are agreeable to this plan of care and follow-up instructions have been explained in detail. The patient and/or caregivers have received these instruction. The patient/and or caregivers are aware that any significant change in condition or worsening of symptoms should prompt an immediate return to this or the closest emergency department or call 911. Prescriptions: PANTOPRAZOLE 40 mg Tablet [Protonix 40MG Tablet] 40 mg PO QPM 14 Days #14 tab
== END 2023-12-18 08:12 | disposition home or self-care (01) ==
LOC: ED 01:17
DX: F10.129 Alcohol abuse with intoxication, unspecified (principal); F12.90 Cannabis use, unspecified, uncomplicated; Y90.8 Blood alcohol level of 240 mg/100 ml or more; R31.29 Other microscopic hematuria; R19.5 Other fecal abnormalities; E86.0 Dehydration; K76.0 Fatty (change of) liver, not elsewhere classified; R10.13 Epigastric pain; K29.21 Alcoholic gastritis with bleeding; R74.01 Elevation of levels of liver transaminase levels; R42 Dizziness and giddiness; R11.2 Nausea with vomiting, unspecified; Z79.899 Other long term (current) drug therapy
CPT/HCPCS: 36000; 36415; 71260; 74176; 80053; 80307; 81001; 82077; 82274; 83690; 83880; 84484; 85025; 85379; 87086; 93041; 94760; 96360; 96374; 99284; G0328

== ENCOUNTER 2024-01-14 02:09 | Emergency (ER) | payer MEDICAID ==
[2024-01-14 02:41] VITALS: TEMP 98.3
--- NOTE | 2024-01-14 03:06 | ERPHSYRPT ---
<OSMEL HARRINGTON KaitlynLayla - Last Filed: 01/14/24 06:50> - History of Present Illness Time Seen by Provider: 01/14/24 02:30 Historian: patient, family Exam Limitations: no limitations Patient Subjective Stated Complaint: pt initial complaint was chest pain and shortness of breath but then said that pain is more like mucus in his chest and the sob might be because he has had dry NPC for approx 36hrs. reports generalized abd pain since 1999 last night that is accompanied by nausea and vomiting (2 episodes of emesis since 99) that are clear liquid. also reports that when he runs his right ankle swells and has pain but hasn't run this morning but it is still hurting. Triage Nursing Assessment: pt ambulated into room 6 independently with slow steady gait after standing on scale for weight acquisition. pt is alert and or iented times three, able to speak in complete sentences, able to move all extremities. skin is warm, pink, dry, and intact. bilat radial and pedal pulses palpable. heart sounds are present and regular. abd is obese, soft, nontender to palpation, nondistended, with positive bowel sounds in all quadrants. bilat anterior/ posterior lung sounds clear throughout. no edema or JVD noted. all extremities with ROM, strength, color, cap refill, and sensation within normal limits. pt answers yes to most questions that are asked and has frequent tangential thinking/ speaking. minimal eye contact with staff, speaks in rapid clipped speech pattern. LBM 01/13/24. denies blood in vomit or stool Physician History: This is a 23-year-old white male patient who presents with complaint of chest pain, nasal and chest congestion, dry, nonproductive cough, sore throat and shortness of breath that began last evening. He also had abdominal pain earlier that is mild and associated with nausea and vomiting episodes x 2. The chest pain is on his right side of his chest that is constant, achiness that is nonradiating. Patient [facility], [facility]2024[facility]. He denies alcohol use since his discharge. He denies illicit drug use since his discharge there. Patient has a significant psychiatric history including anxiety, bipolar disorder, autism and reactive attachment disorder. He also has a history of gastroesophageal reflux disease and hypertension. He has no known coronary artery disease. He does smoke cigarettes daily. Timing/Duration: yesterday, worse Quality: aching Location: substernal, other (Right side) Chest Pain Radiation: no radiation Severity of Pain-Max: mild (To moderate) Severity of Pain-Current: mild (To moderate) Associated Symptoms: nausea, vomiting (X 2 episodes), shortness of breath, cough Prior Chest Pain/Cardiac Workup: no prior chest pain Nitro Today/Relief: no nitro taken today Aspirin Treatment Today: 81 mg x 4, provided by ED Allergies/Adverse Reactions: Penicillins Allergy (Verified 01/14/24 02:15) Home Medications: Fluoxetine HCl 20 mg [Prozac 20 MG] 2 cap PO DAILY 09/03/23 [History] hydrOXYzine HCL [Hydroxyzine HCl] 50 mg PO QIDPRN PRN 11/07/23 [History] Buspirone HCl 5 mg [Buspar 5 mg] 3 tab PO TID 12/18/23 [History] Clonidine HCl 0.1 mg [Clonidine 0.1 mg Tablet] 0.2 mg PO HS 12/18/23 [History] Gabapentin [Neurontin ] 300 mg PO TID 12/18/23 [History] Lisinopril 10 mg [Zestril 10 MG] 10 mg PO DAILY 12/18/23 [History] Melatonin 10 mg PO HS 01/14/24 [History] Metoclopramide HCl 10 mg [Reglan 10 MG] 10 mg PO BID 01/14/24 [History] Sucralfate [Carafate] 1 gm PO QID 01/14/24 [History] Trazodone HCl 100 mg PO HS 01/14/24 [History] Hx Tetanus, Diphtheria Vaccination/Date Given: Yes Hx Influenza Vaccination/Date Given: No Hx Pneumococcal Vaccination/Date Given: No Immunizations Up to Date: Yes Travel Risk - International Travel Have you traveled outside of the country in past 3 weeks: No - Emerging Infectious Disease Are you exhibiting symptoms associated with any current EIDs: Yes Symptoms: Cough: New Onset, Shortness of Breath, Vomitting - Review of Systems Constitutional: No Symptoms Eyes: No Symptoms Ears, Nose, & Throat: No Symptoms Respiratory: Cough, Dyspnea Cardiac: Chest Pain Abdominal/Gastrointestinal: Nausea, Vomiting Genitourinary Symptoms: No Symptoms Musculoskeletal: No Symptoms Skin: No Symptoms Neurological: No Symptoms Psychological: No Symptoms Endocrine: No Symptoms Hematologic/Lymphatic: No Symptoms Immunological/Allergic: No Symptoms All Other Systems: Reviewed and Negative - Past Medical History Pertinent Past Medical History: Yes Neurological History: No Pertinent History, Epilepsy ENT History: No Pertinent History Cardiac History: No Pertinent History Respiratory History: Pneumonia Endocrine Medical History: No Pertinent History Musculoskeletal History: No Pertinent History GI Medical History: Hernia History: No Pertinent History Psycho-Social History: Anxiety, Bipolar, Depression, Other Male Reproductive Disorders: No Pertinent History Other Medical History: Autism, reactive attachment disorder - Past Surgical History Past Surgical History: Yes Neuro Surgical History: No Pertinent History Cardiac: No Pertinent History Respiratory: No Pertinent History Gastrointestinal: Hernia Repair Genitourinary: No Pertinent History Musculoskeletal: No Pertinent History Male Surgical History: No Pertinent History Other Surgical History: Hernia repair x2 - Social History Smoking Status: Never smoker Exposure to second hand smoke: No Drug Use: none Patient Lives Alone: No - Physical Exam General Appearance: no apparent distress, alert, anxiety, obese Eye Exam: PERRL/EOMI, eyes nml inspection Ears, Nose, Throat Exam: normal ENT inspection, dry mucous membranes Neck Exam: normal inspection, non-tender, supple, full range of motion Respiratory Exam: normal breath sounds, lungs clear, airway intact, No respiratory distress Cardiovascular Exam: tachycardia Gastrointestinal/Abdomen Exam: soft, normal bowel sounds, No tenderness, No guarding, No rebound Rectal Exam: not done Back Exam: normal inspection, normal range of motion, No CVA tenderness, No vert ebral tenderness Extremity Exam: normal inspection, normal range of motion, pelvis stable Neurologic Exam: alert, oriented x 3, cooperative, supervisor wet room II-XII nml as tested, normal mood/affect, nml cerebellar function, nml station & gait, sensation nml Skin Exam: normal color, warm, dry Lymphatic Exam: No adenopathy SpO2 Interpretation: normal SpO2: 97 O2 Delivery: Room Air - Course Nursing assessment & vital signs reviewed: Yes EKG Interpreted by Me: RATE (109), Sinus Tach, prolonged QT interval, NORMAL QRS, Other (No acute ischemic changes on today's twelve-lead EKG. New sinus tachycardia and new prolonged QT interval on today's twelve-lead EKG when com pared to that twelve-lead EKG dated 09/03/2023) - Progress Progress: improved, re-examined Air Movement: good Progress Note: 01/14/24 03:56 This patient's medical issue is 1 of moderate complexity. The level of complexity in the workup performed is based on review of the patient's past medical history, review of the patient's medication list, review the patient's drug allergy list, review of the patient's history of present illness, and physical findings on examination. The workup in this patient includes placement of intravenous line, infusion of normal saline solution, infusion of Zofran, infusion of Protonix 40 mg intravenously, CBC, CMP, BNP, troponin level, D-dimer level, chest x-ray, urinalysis, ethyl alcohol level, twelve-lead EKG, viral swabs, group A strep test, monotest. 01/14/24 06:51 I interpreted the patient's laboratory data results. The patient's D-dimer is elevated. We ordered a CT scan of the chest with contrast. The patient also has hematuria. We ordered a CT scan of the abdomen pelvis. CT scan of the chest with contrast was interpreted by radiologist and I reviewed the impression. Impression states no pulmonary embolus. There are no acute pulmonary abnormalities. There is no evidence of any acute pulmonary infection. The patient provided us a urine late and we just received the results and there is hematuria present. CT scan of the abdomen pelvis is pending. This was discussed with Dr. Aneudy Barillas who I am transferring care of this patient to. He will follow-up with the results and make final disposition. Blood Culture(s) Obtained: No Antibiotics given: No Counseled pt/family regarding: lab results, diagnosis, need for follow-up, rad results Medical Desision Making - Diagnostic Testing Diagnostic test were ordered, analyzed, and reviewed by me: Yes Radiological Interpretation: Reviewed by me, Teleradiologist Report - Risk of complications The pt has a mod risk of morbidity or mortality based on: Need for prescription drug management - Departure Departure Disposition: Home Clinical Impression: Nasal congestion, Abdominal pain, Chest pain, Hematuria, Proteinuria, Elevated serum creatinine, Dehydration Condition: Stable Critical Care Time: No Referrals: [facility]PA[facility] [Primary Care Provider] - Follow up/PCP as directed Prescriptions: Oxymetazoline HCl [Vicks Sinex] 15 ml NS UD #1 unit <ANEUDY BARILLAS - Last Filed: 01/14/24 07:55> - Nursing Vital Signs Nursing Vital Signs: Initial Vital Signs Temperature 98.3 F 01/14/24 02:10 Pulse Rate 111 H 01/14/24 02:10 Respiratory Rate 14 01/14/24 02:10 Blood Pressure 146/110 01/14/24 02:10 O2 Sat by Pulse Oximetry 96 01/14/24 02:10 Pain Scale Pain Intensity 0 - CT Exams Abdomen/Pelvis CT Interpretation: Tele-radiologist Report (Normal abdomen pelvis with contrast) Ordered Tests: Active Orders 24 hr Category Date Time Status Activities Officer STAT Care 01/14/24 03:07 Active EKG-ER Only STAT Care 01/14/24 03:06 Active EKG-ER Only STAT Care 01/14/24 07:02 Active IV Insertion STAT Care 01/14/24 03:06 Active Pulse Oximetry (ED) STAT Care 01/14/24 03:06 Active ABDOMEN AND PELVIS W/0 CONTRAS [CT] Stat Exams 01/14/24 06:38 Taken CHEST WITH CONTRAST [CT] Stat Exams 01/14/24 03:42 Completed BLOOD CULTURE Stat Lab 01/14/24 03:50 Received CBC W DIFF Stat Lab 01/14/24 02:25 Completed CMP Stat Lab 01/14/24 02:25 Completed CULTURE,URINE Stat Lab 01/14/24 04:59 Received D-DIMER QUANTITATIVE Stat Lab 01/14/24 02:25 Completed ETHYL ALCOHOL Stat Lab 01/14/24 02:20 Completed MONO SCREEN Stat Lab 01/14/24 02:25 Completed TROPONIN Q4H Lab 01/14/24 02:25 Completed TROPONIN Q4H Lab 01/14/24 06:05 Completed TROPONIN Q4H Lab 01/14/24 11:15 Ordered UA W/RFX UR CULTURE Stat Lab 01/14/24 04:59 Completed Medication Summary Discontinued Medications Generic Name Dose Route Start Last Admin Trade Name Freq PRN Reason Stop Dose Admin Sodium Chloride 1,000 mls @ 999 mls/hr 01/14/24 03:06 01/14/24 04:38 Sodium Chloride 0.9% 1000 Ml IV 01/14/24 04:06 Infused .Q1H1M STA Infusion Sodium Chloride Confirm 01/14/24 03:17 Sodium Chloride 0.9% 1000 Ml Administered 01/14/24 03:18 Dose 1,000 mls @ ud .ROUTE .STK-MED ONE Ondansetron HCl 4 mg 01/14/24 03:06 01/14/24 03:19 Ondansetron Hcl 4 Mg/2 Ml Vial IV 01/14/24 03:07 4 mg STAT STA Administration Ondansetron HCl Confirm 01/14/24 03:17 Ondansetron Hcl 4 Mg/2 Ml Vial Administered 01/14/24 03:18 Dose 4 mg .ROUTE .STK-MED ONE Pantoprazole Sodium 40 mg 01/14/24 03:51 01/14/24 03:57 Pantoprazole 40 Mg Vial IV 01/14/24 03:52 40 mg STAT ONE Administration Pantoprazole Sodium Confirm 01/14/24 03:54 Pantoprazole 40 Mg Vial Administered 01/14/24 03:55 Dose 40 mg IV .STK-MED ONE Lab/Rad Data: Laboratory Result Diagrams 01/14/24 02:25 01/14/24 02:25 Laboratory Results 01/14/24 01/14/24 01/14/24 Range/Units 06:05 04:59 03:50 WBC (4.0-10.5) x10^3/uL RBC (4.1-5.6) x10^6/uL Hgb (12.5-18.0) g/dL Hct (42-50) % MCV (78-100) fL MCH (26-32) pg MCHC (32-36) g/dL RDW (11.5-14.0) % Plt Count (150-450) x10^3/uL MPV (7.5-11.0) fL Gran % (36.0-66.0) % Immature Gran % (Auto) (0.00-0.4) % Nucleat RBC Rel Count (0.00-0.1) % Eos # (Auto) (0-0.5) x10^3/uL Immature Gran # (Auto) (0.00-0.03) x10^3u/L Absolute Lymphs (auto) (1.0-4.6) x10^3/uL Absolute Monos (auto) (0.0-1.3) x10^3/uL Absolute Nucleated RBC (0.00-0.01) x10^3u/L Lymphocytes % (24.0-44.0) % Monocytes % (0.0-12.0) % Eosinophils % (0.00-5.0) % Basophils % (0.0-0.4) % Absolute Granulocytes (1.4-6.9) x10^3/uL Basophils # (0-0.4) x10^3/uL D-Dimer (0.0-0.50) mg/L Sodium (135-145) mmol/L Potassium (3.5-5.1) mmol/L Chloride (98-107) mmol/L Carbon Dioxide (22-30) mmol/L Anion Gap (5-15) MEQ/L BUN (9-20) mg/dL Creatinine (0.66-1.25) mg/dL Estimated GFR ML/MIN Glucose (74-106) mg/dL Calcium (8.4-10.2) mg/dL Total Bilirubin (0.2-1.3) mg/dL AST (17-59) U/L ALT (0-50) U/L Alkaline Phosphatase (38-126) U/L Troponin I < 0.012 (0.000-0.034) ng/mL Serum Total Protein (6.3-8.2) g/dL Albumin (3.5-5.0) g/dL Urine Color Yellow (Yellow) Urine Appearance Clear (Clear) Urine pH 5.0 (4.6-8.0) Ur Specific Blackwood >=1.030 A (1.005-1.030) Urine Protein 300 A (Negative) Urine Glucose (UA) Negative (Negative) mg/dL Urine Ketones Negative (Negative) Urine Blood Large A (Negative) Urine Nitrite Negative (Negative) Urine Bilirubin Negative (Negative) Urine Urobilinogen 1.0 A (0.2) mg/dL Ur Leukocyte Esterase Negative (Negative) U Hyaline Cast (Auto) 3-5 A (0-2) /LPF Urine Microscopic RBC 51-100 A (0-5) /HPF Urine Microscopic WBC 3-5 (0-5) /HPF Ur Epithelial Cells None Seen (None Seen) /HPF Urine Bacteria None Seen (None Seen) /HPF Urine Culture Reflexed YES (NO) Ethyl Alcohol (0-10) mg/dL Monoscreen (NEGATIVE) Influenza Type A Ag (NEGATIVE) Influenza Type B Ag (NEGATIVE) RSV (PCR) (NEGATIVE) SARS-CoV-2 (PCR) (NEGATIVE) Group A Strep Antibody NOT DETECTED (NEGATIVE) 01/14/24 01/14/24 01/14/24 Range/Units 03:50 02:25 02:25 WBC (4.0-10.5) x10^3/uL RBC (4.1-5.6) x10^6/uL Hgb (12.5-18.0) g/dL Hct (42-50) % MCV (78-100) fL MCH (26-32) pg MCHC (32-36) g/dL RDW (11.5-14.0) % Plt Count (150-450) x10^3/uL MPV (7.5-11.0) fL Gran % (36.0-66.0) % Immature Gran % (Auto) (0.00-0.4) % Nucleat RBC Rel Count (0.00-0.1) % Eos # (Auto) (0-0.5) x10^3/uL Immature Gran # (Auto) (0.00-0.03) x10^3u/L Absolute Lymphs (auto) (1.0-4.6) x10^3/uL Absolute Monos (auto) (0.0-1.3) x10^3/uL Absolute Nucleated RBC (0.00-0.01) x10^3u/L Lymphocytes % (24.0-44.0) % Monocytes % (0.0-12.0) % Eosinophils % (0.00-5.0) % Basophils % (0.0-0.4) % Absolute Granulocytes (1.4-6.9) x10^3/uL Basophils # (0-0.4) x10^3/uL D-Dimer (0.0-0.50) mg/L Sodium (135-145) mmol/L Potassium (3.5-5.1) mmol/L Chloride (98-107) mmol/L Carbon Dioxide (22-30) mmol/L Anion Gap (5-15) MEQ/L BUN (9-20) mg/dL Creatinine (0.66-1.25) mg/dL Estimated GFR ML/MIN Glucose (74-106) mg/dL Calcium (8.4-10.2) mg/dL Total Bilirubin (0.2-1.3) mg/dL AST (17-59) U/L ALT (0-50) U/L Alkaline Phosphatase (38-126) U/L Troponin I < 0.012 (0.000-0.034) ng/mL Serum Total Protein (6.3-8.2) g/dL Albumin (3.5-5.0) g/dL Urine Color (Yellow) Urine Appearance (Clear) Urine pH (4.6-8.0) Ur Specific Blackwood (1.005-1.030) Urine Protein (Negative) Urine Glucose (UA) (Negative) mg/dL Urine Ketones (Negative) Urine Blood (Negative) Urine Nitrite (Negative) Urine Bilirubin (Negative) Urine Urobilinogen (0.2) mg/dL Ur Leukocyte Esterase (Negative) U Hyaline Cast (Auto) (0-2) /LPF Urine Microscopic RBC (0-5) /HPF Urine Microscopic WBC (0-5) /HPF Ur Epithelial Cells (None Seen) /HPF Urine Bacteria (None Seen) /HPF Urine Culture Reflexed (NO) Ethyl Alcohol (0-10) mg/dL Monoscreen NEGATIVE (NEGATIVE) Influenza Type A Ag NEGATIVE (NEGATIVE) Influenza Type B Ag NEGATIVE (NEGATIVE) RSV (PCR) NEGATIVE (NEGATIVE) SARS-CoV-2 (PCR) NEGATIVE (NEGATIVE) Group A Strep Antibody (NEGATIVE) 01/14/24 01/14/24 01/14/24 Range/Units 02:25 02:25 02:25 WBC 5.6 (4.0-10.5) x10^3/uL RBC 5.38 (4.1-5.6) x10^6/uL Hgb 15.5 (12.5-18.0) g/dL Hct 46.6 (42-50) % MCV 86.6 (78-100) fL MCH 28.8 (26-32) pg MCHC 33.3 (32-36) g/dL RDW 12.6 (11.5-14.0) % Plt Count 329 (150-450) x10^3/uL MPV 9.1 (7.5-11.0) fL Gran % 37.4 (36.0-66.0) % Immature Gran % (Auto) 0.2 (0.00-0.4) % Nucleat RBC Rel Count 0.0 (0.00-0.1) % Eos # (Auto) 0.12 (0-0.5) x10^3/uL Immature Gran # (Auto) 0.01 (0.00-0.03) x10^3u/L Absolute Lymphs (auto) 2.63 (1.0-4.6) x10^3/uL Absolute Monos (auto) 0.73 (0.0-1.3) x10^3/uL Absolute Nucleated RBC 0.00 (0.00-0.01) x10^3u/L Lymphocytes % 46.9 H (24.0-44.0) % Monocytes % 13.0 H (0.0-12.0) % Eosinophils % 2.1 (0.00-5.0) % Basophils % 0.4 (0.0-0.4) % Absolute Granulocytes 2.10 (1.4-6.9) x10^3/uL Basophils # 0.02 (0-0.4) x10^3/uL D-Dimer 0.75 H* (0.0-0.50) mg/L Sodium 142 (135-145) mmol/L Potassium 3.7 (3.5-5.1) mmol/L Chloride 105 (98-107) mmol/L Carbon Dioxide 23 (22-30) mmol/L Anion Gap 17.5 H (5-15) MEQ/L BUN 25 H (9-20) mg/dL Creatinine 1.39 H (0.66-1.25) mg/dL Estimated GFR 73.5 ML/MIN Glucose 107 H (74-106) mg/dL Calcium 9.7 (8.4-10.2) mg/dL Total Bilirubin 0.40 (0.2-1.3) mg/dL AST 48 (17-59) U/L ALT 95 H (0-50) U/L Alkaline Phosphatase 70 (38-126) U/L Troponin I (0.000-0.034) ng/mL Serum Total Protein 7.7 (6.3-8.2) g/dL Albumin 4.4 (3.5-5.0) g/dL Urine Color (Yellow) Urine Appearance (Clear) Urine pH (4.6-8.0) Ur Specific [place]wood (1.005-1.030) Urine Protein (Negative) Urine Glucose (UA) (Negative) mg/dL Urine Ketones (Negative) Urine Blood (Negative) Urine Nitrite (Negative) Urine Bilirubin (Negative) Urine Urobilinogen (0.2) mg/dL Ur Leukocyte Esterase (Negative) U Hyaline Cast (Auto) (0-2) /LPF Urine Microscopic RBC (0-5) /HPF Urine Microscopic WBC (0-5) /HPF Ur Epithelial Cells (None Seen) /HPF Urine Bacteria (None Seen) /HPF Urine Culture Reflexed (NO) Ethyl Alcohol (0-10) mg/dL Monoscreen (NEGATIVE) Influenza Type A Ag (NEGATIVE) Influenza Type B Ag (NEGATIVE) RSV (PCR) (NEGATIVE) SARS-CoV-2 (PCR) (NEGATIVE) Group A Strep Antibody (NEGATIVE) 01/14/24 Range/Units 02:20 WBC (4.0-10.5) x10^3/uL RBC (4.1-5.6) x10^6/uL Hgb (12.5-18.0) g/dL Hct (42-50) % MCV (78-100) fL MCH (26-32) pg MCHC (32-36) g/dL RDW (11.5-14.0) % Plt Count (150-450) x10^3/uL MPV (7.5-11.0) fL Gran % (36.0-66.0) % Immature Gran % (Auto) (0.00-0.4) % Nucleat RBC Rel Count (0.00-0.1) % Eos # (Auto) (0-0.5) x10^3/uL Immature Gran # (Auto) (0.00-0.03) x10^3u/L Absolute Lymphs (auto) (1.0-4.6) x10^3/uL Absolute Monos (auto) (0.0-1.3) x10^3/uL Absolute Nucleated RBC (0.00-0.01) x10^3u/L Lymphocytes % (24.0-44.0) % Monocytes % (0.0-12.0) % Eosinophils % (0.00-5.0) % Basophils % (0.0-0.4) % Absolute Granulocytes (1.4-6.9) x10^3/uL Basophils # (0-0.4) x10^3/uL D-Dimer (0.0-0.50) mg/L Sodium (135-145) mmol/L Potassium (3.5-5.1) mmol/L Chloride (98-107) mmol/L Carbon Dioxide (22-30) mmol/L Anion Gap (5-15) MEQ/L BUN (9-20) mg/dL Creatinine (0.66-1.25) mg/dL Estimated GFR ML/MIN Glucose (74-106) mg/dL Calcium (8.4-10.2) mg/dL Total Bilirubin (0.2-1.3) mg/dL AST (17-59) U/L ALT (0-50) U/L Alkaline Phosphatase (38-126) U/L Troponin I (0.000-0.034) ng/mL Serum Total Protein (6.3-8.2) g/dL Albumin (3.5-5.0) g/dL Urine Color (Yellow) Urine Appearance (Clear) Urine pH (4.6-8.0) Ur Specific [place] (1.005-1.030) Urine Protein (Negative) Urine Glucose (UA) (Negative) mg/dL Urine Ketones (Negative) Urine Blood (Negative) Urine Nitrite (Negative) Urine Bilirubin (Negative) Urine Urobilinogen (0.2) mg/dL Ur Leukocyte Esterase (Negative) U Hyaline Cast (Auto) (0-2) /LPF Urine Microscopic RBC (0-5) /HPF Urine Microscopic WBC (0-5) /HPF Ur Epithelial Cells (None Seen) /HPF Urine Bacteria (None Seen) /HPF Urine Culture Reflexed (NO) Ethyl Alcohol < 10 (0-10) mg/dL Monoscreen (NEGATIVE) Influenza Type A Ag (NEGATIVE) Influenza Type B Ag (NEGATIVE) RSV (PCR) (NEGATIVE) SARS-CoV-2 (PCR) (NEGATIVE) Group A Strep Antibody (NEGATIVE) - Progress Progress Note: Patient endorsed to Dr. Barillas at approximately [address] Barillas advised follow-up on pending CT abdomen pelvis. CT abdomen pelvis is normal. No acute findings. Urinalysis reveals proteinuria, elevated specific gravity and hematuria. Patient will require follow-up with his primary care doctor and further evaluation of his renal function. Patient was advised of the need to follow-up with his primary care doctor and the importance of reassessing his kidney function and possibly even seeing a mangle tender cloth to further evaluate the findings on today's urinalysis. Patient received normal saline to address the dehydration. Patient agrees to follow-up as discussed. He voices no other complaints or concerns at this time. Portions of this note were created with voice recognition technology. There may be grammatical, spelling, punctuation or sound alike errors 01/14/24 07:53
[2024-01-14 03:12] LABS: BASOPHIL % 0.4 % (0.0-0.4); Basophil (Absolute #) 0.02 x10^3/uL (0-0.4); Eosinophil % 2.1 % (0.00-5.0); Eosinophil (Absolute #) 0.12 x10^3/uL (0-0.5); Hematocrit 46.6 % (42-50); Hemoglobin 15.5 g/dL (12.5-18.0); IMMATURE GRAN # 0.01 x10^3u/L (0.00-0.03); IMMATURE GRAN % 0.2 % (0.00-0.4); Lymphocyte (Absolute #) 2.63 x10^3/uL (1.0-4.6); Lymphocytes % 46.9 % (24.0-44.0); Mean Cell Volume 86.6 fL (78-100); Mean Corpuscular Hemoglobin 28.8 pg (26-32); Mean Corpuscular Hgb Concent. 33.3 g/dL (32-36); Mean Platelet Volume 9.1 fL (7.5-11.0); Monocyte (Absolute #) 0.73 x10^3/uL (0.0-1.3); Neutrophil % 37.4 % (36.0-66.0); Platelet Count 329 x10^3/uL (150-450); Red Blood Count 5.38 x10^6/uL (4.1-5.6); Red Cell Distribution Width 12.6 % (11.5-14.0); White Blood Count 5.6 x10^3/uL (4.0-10.5)
[2024-01-14] MEDS ORDERED: Zofran 4 MG/2 ML VIAL ONE (03:17)
[2024-01-14] MEDS ORDERED: Sodium Chloride 0.9% 1000 ML 1,000 ML ONE (03:17)
[2024-01-14] MEDS: Zofran 4 MG/2 ML VIAL IV STA (03:19)
[2024-01-14 03:20] LABS: ALBUMIN 4.4 g/dL (3.5-5.0); ANION GAP 17.5 MEQ/L (5-15); BILIRUBIN,TOTAL 0.4 mg/dL (0.2-1.3); Calcium 9.7 mg/dL (8.4-10.2); Creatinine 1 1.39 mg/dL (0.66-1.25); EST GLOMERULAR FILTRATION RATE 73.5 ML/MIN; Potassium 3.7 mmol/L (3.5-5.1); Total Protein 7.7 g/dL (6.3-8.2)
[2024-01-14] MEDS: Sodium Chloride 0.9% 1000 ML 1,000 ML IV STA (03:20)
[2024-01-14] MEDS ORDERED: PROTONIX 40 MG IV IV ONE (03:54)
[2024-01-14] MEDS: PROTONIX 40 MG IV IV ONE (03:57)
[2024-01-14 04:37] LABS: INFLUENZA A NEGATIVE (NEGATIVE); INFLUENZA B NEGATIVE (NEGATIVE); RESPIRATORY SYNCTIAL VIRUS NEGATIVE (NEGATIVE); SARS-CoV-2 Xpert Express NEGATIVE (NEGATIVE)
[2024-01-14 05:17] LABS: Appearance Clear (Clear); Bacteria None Seen /HPF (None Seen); Bilirubin Negative (Negative); Blood Large (Negative); Epithelial Cells None Seen /HPF (None Seen); Glucose, Urine Negative (Negative); Ketones Negative (Negative); Leukocyte Esterase Negative (Negative); Nitrite Negative (Negative); Protein,Urine Dip 300 (Negative); RBC 51-100 /HPF (0-5); Specific Gravity >=1.030 (1.005-1.030)
[2024-01-14 05:18] LABS: ADD URINE CULTURE? YES (NO)
--- NOTE | 2024-01-14 05:18 | XRAY ---
CLINICAL HISTORY: Cough; CP; elevated D-dimer TECHNIQUE: Axial CT images of the chest were acquired with intravenous contrast administration following PE protocol. Coronal and sagittal reconstructions were also obtained. "One of the following dose reduction techniques was utilized for this exam: Automated exposure control, adjustment of the mA and/or kV according to patient size, and use of iterative reconstruction." COMPARISON: The previous CT scan dated 12/18/2023 is compared FINDINGS: The main pulmonary trunk, right and left main pulmonary arteries as well as segmental branches appear of normal caliber without evidence of any filling defect. No evidence of pulmonary arterial thrombosis was identified. Patent ascending aorta, aortic arch, and descending aorta showing normal caliber and smooth outline. No evidence of aortic coarctation or dissection. No aneurysmal dilatation. The scanned pulmonary parenchyma shows no definite consolidative lesions. No free or encysted pleural effusion. Heart size is normal, and there is no pericardial effusion. No pathologically enlarged mediastinal, hilar, or axillary lymph node was identified. There is no definite mass lesion in the chest wall. The scanned upper abdomen a mild fatty liver seen IMPRESSION: 1. No evidence of acute pulmonary arterial thromboembolic disease noted 2. No acute pulmonary infection was seen. 3. No significant interval was noted in comparison to the previous CT scan. Electronically Signed by: Tyrone Ness MD. (01/14/2024 05:13:54 EDT)
[2024-01-14 08:04] VITALS: BP 116/79; PULSE 77; RESP 19; O2SAT 97
--- NOTE | 2024-01-14 09:00 | XRAY ---
Indication: Abdominal pain. Hematuria. Status post CT PE exam. Multiple contiguous axial images obtained through the abdomen and pelvis without contrast. Comparison: December 18, 2023 CT chest reported severally. Noncontrasted stomach and bowel loops appear nonobstructed with normal appendix. Residual contrast in system from same day CT PE exam. No free fluid/air. Remaining liver, gallbladder, pancreas, spleen, adrenal glands, kidneys, ureters, bladder, and aorta are unremarkable. Osseous structures intact. Impression: Residual contrast in system. Remaining CT abdomen/pelvis without contrast exam continues to be negative.
== END 2024-01-14 08:05 | disposition home or self-care (01) ==
LOC: ED 02:09
DX: R09.81 Nasal congestion (principal); R10.9 Unspecified abdominal pain; R07.9 Chest pain, unspecified; R31.9 Hematuria, unspecified; R80.9 Proteinuria, unspecified; R79.89 Other specified abnormal findings of blood chemistry; E86.0 Dehydration; R05.9 Cough, unspecified; J02.9 Acute pharyngitis, unspecified; R06.02 Shortness of breath; R11.2 Nausea with vomiting, unspecified; I10 Essential (primary) hypertension; Z79.899 Other long term (current) drug therapy; Z72.0 Tobacco use
CPT/HCPCS: 0241U; 36000; 36415; 71260; 74176; 80053; 81001; 82077; 84484; 85025; 85379; 86308; 87040; 87086; 87651; 93005; 93041; 94760; 96360; 96374; 96375; 99285; J2405

== ENCOUNTER 2024-02-04 22:46 | Emergency (ER) | payer MEDICAID ==
[2024-02-04 22:53] VITALS: TEMP 98.1
[2024-02-04] MEDS ORDERED: Sodium Chloride 0.9% 1000 ML 1,000 ML ONE (23:43)
[2024-02-04 23:46] LABS: Absolute Neutrophil Ct (ANC) 6.91 x10^3/uL (1.4-6.9); BASOPHIL % 0.3 % (0.0-0.4); Basophil (Absolute #) 0.03 x10^3/uL (0-0.4); Eosinophil (Absolute #) 0.09 x10^3/uL (0-0.5); Hematocrit 45.6 % (42-50); Hemoglobin 15.5 g/dL (12.5-18.0); IMMATURE GRAN # 0.03 x10^3u/L (0.00-0.03); IMMATURE GRAN % 0.3 % (0.00-0.4); Lymphocyte (Absolute #) 1.55 x10^3/uL (1.0-4.6); Lymphocytes % 16.8 % (24.0-44.0); Mean Cell Volume 84.9 fL (78-100); Mean Corpuscular Hemoglobin 28.9 pg (26-32); Mean Platelet Volume 8.9 fL (7.5-11.0); Monocyte (Absolute #) 0.59 x10^3/uL (0.0-1.3); Monocytes % 6.4 % (0.0-12.0); Neutrophil % 75.2 % (36.0-66.0); Platelet Count 358 x10^3/uL (150-450); Red Blood Count 5.37 x10^6/uL (4.1-5.6); Red Cell Distribution Width 12.3 % (11.5-14.0); White Blood Count 9.2 x10^3/uL (4.0-10.5)
[2024-02-04] MEDS: Sodium Chloride 0.9% 1000 ML 1,000 ML IV STA (23:46)
--- NOTE | 2024-02-04 23:46 | ERPHSYRPT ---
- History of Present Illness Time Seen by Provider: 02/04/24 22:55 Source: patient Exam Limitations: no limitations Patient Subjective Stated Complaint: dizziness after eating a gummy Triage Nursing Assessment: pt ambulated into ER without diff. Pt is alert and oriented x4. Pt is anxious. Pt came to ER c/o feeling dizzy after taking a Delta 8 gummy today that he purchased from the gas station. Pt's pupils are 6mm and sluggish. Lungs clear, heart tones reg and tachy. Physician History: 23-year-old male presents to emergency department for evaluation of dizziness that occurred after taking a delta 8 gummy bear from a gas station today. Patient is observed to be tachycardic. No chest pain or shortness of breath. No nausea vomiting or diaphoresis. Patient's pupils are dilated. Symptoms are mild to moderate in intensity. No specific worsening or improving factors. Patient denies HI SI. He denies ingesting toxic substances otherwise. Patient voices no other complaints or concerns at this time. Patient refused imaging studies Portions of this note were created with voice recognition technology. There may be grammatical, spelling, punctuation or sound alike errors Timing/Duration: today Severity: moderate Modifying Factors: Improves With: nothing Associated Symptoms: denies symptoms Allergies/Adverse Reactions: Penicillins Allergy (Verified 02/04/24 23:03) Home Medications: Fluoxetine HCl 20 mg [Prozac 20 MG] 2 cap PO DAILY 09/03/23 [History] hydrOXYzine HCL [Hydroxyzine HCl] 50 mg PO QIDPRN PRN 11/07/23 [History] Clonidine HCl 0.1 mg [Clonidine 0.1 mg Tablet] 0.2 mg PO HS 12/18/23 [History] Gabapentin [Neurontin ] 300 mg PO TID 12/18/23 [History] Melatonin 10 mg PO HS 01/14/24 [History] Sucralfate [Carafate] 1 gm PO QID 01/14/24 [History] Trazodone HCl 100 mg PO HS 01/14/24 [History] Omeprazole 20 mg PO DAILY 02/04/24 [History] Hx Tetanus, Diphtheria Vaccination/Date Given: Yes Hx Influenza Vaccination/Date Given: No Hx Pneumococcal Vaccination/Date Given: No Immunizations Up to Date: No Travel Risk - International Travel Have you traveled outside of the country in past 3 weeks: No - Emerging Infectious Disease Are you exhibiting symptoms associated with any current EIDs: Yes Symptoms: Other (Please Comment) Comment: dizziness - Review of Systems Constitutional: No Symptoms, No Fever, No Chills Eyes: No Symptoms Ears, Nose, & Throat: No Symptoms Respiratory: No Symptoms, No Cough, No Dyspnea Cardiac: No Symptoms, No Chest Pain, No Edema, No Syncope Abdominal/Gastrointestinal: No Symptoms, No Abdominal Pain, No Nausea, No Vomiting, No Diarrhea Genitourinary Symptoms: No Symptoms, No Dysuria Musculoskeletal: No Symptoms, No Back Pain, No Neck Pain Skin: No Symptoms, No Rash Neurological: No Symptoms, No Dizziness, No Focal Weakness, No Sensory Changes Psychological: No Symptoms Endocrine: No Symptoms Hematologic/Lymphatic: No Symptoms Immunological/Allergic: No Symptoms All Other Systems: Reviewed and Negative - Past Medical History Pertinent Past Medical History: Yes Neurological History: No Pertinent History, Epilepsy ENT History: No Pertinent History Cardiac History: No Pertinent History Respiratory History: Pneumonia Endocrine Medical History: No Pertinent History Musculoskeletal History: No Pertinent History GI Medical History: Hernia History: No Pertinent History Psycho-Social History: Anxiety, Bipolar, Depression, Other Male Reproductive Disorders: No Pertinent History Other Medical History: Autism, reactive attachment disorder - Past Surgical History Past Surgical History: Yes Neuro Surgical History: No Pertinent History Cardiac: No Pertinent History Respiratory: No Pertinent History Gastrointestinal: Hernia Repair Genitourinary: No Pertinent History Musculoskeletal: No Pertinent History Male Surgical History: No Pertinent History Other Surgical History: Hernia repair x2 - Social History Smoking Status: Never smoker Exposure to second hand smoke: No Drug Use: other Patient Lives Alone: No - Nursing Vital Signs Nursing Vital Signs: Initial Vital Signs Temperature 98.1 F 02/04/24 22:51 Pulse Rate 145 H 02/04/24 22:51 Respiratory Rate 20 02/04/24 22:51 Blood Pressure 152/102 02/04/24 22:51 O2 Sat by Pulse Oximetry 97 02/04/24 22:51 Pain Scale Pain Intensity 0 - Physical Exam General Appearance: no apparent distress, alert Eye Exam: PERRL/EOMI, eyes nml inspection Ears, Nose, Throat Exam: normal ENT inspection, TMs normal, pharynx normal, moist mucous membranes Neck Exam: normal inspection, non-tender, supple, full range of motion Respiratory Exam: normal breath sounds, lungs clear, airway intact, No respiratory distress Cardiovascular Exam: regular rate/rhythm, normal heart sounds, normal peripheral pulses Gastrointestinal/Abdomen Exam: soft, normal bowel sounds, No tenderness, No mass Back Exam: normal inspection, normal range of motion, No CVA tenderness, No vertebral tenderness Extremity Exam: normal inspection, normal range of motion, pelvis stable Neurologic Exam: alert, oriented x 3, cooperative, normal mood/affect, nml cerebellar function, nml station & gait, sensation nml, No motor deficits Skin Exam: normal color, warm, dry, No rash Lymphatic Exam: No adenopathy SpO2 Interpretation: normal SpO2: 97 O2 Delivery: Room Air - Course Nursing assessment & vital signs reviewed: Yes Ordered Tests: Active Orders 24 hr Category Date Time Status Clean Catch Urine Specimen STAT Care 02/04/24 23:36 Active IV Insertion STAT Care 02/04/24 23:36 Active ACETAMINOPHEN Stat Lab 02/04/24 23:35 Completed CBC W DIFF Stat Lab 02/04/24 23:35 Completed CMP Stat Lab 02/04/24 23:35 Completed CULTURE,URINE Stat Lab 02/04/24 23:35 Received ETHYL ALCOHOL Stat Lab 02/04/24 23:35 Completed SALICYLATE Stat Lab 02/04/24 23:35 Completed UA W/RFX UR CULTURE Stat Lab 02/04/24 23:35 Completed Urine Triage Profile Stat Lab 02/04/24 23:35 Completed Medication Summary Discontinued Medications Generic Name Dose Route Start Last Admin Trade Name Freq PRN Reason Stop Dose Admin Sodium Chloride 1,000 mls @ 999 mls/hr 02/04/24 23:36 02/05/24 00:51 Sodium Chloride 0.9% 1000 Ml IV 02/05/24 00:36 Infused .Q1H1M STA Infusion Sodium Chloride Confirm 02/04/24 23:43 Sodium Chloride 0.9% 1000 Ml Administered 02/04/24 23:44 Dose 1,000 mls @ ud .ROUTE .STK-MED ONE Nitrofurantoin Macrocrystals 100 mg 02/05/24 01:00 02/05/24 01:07 Nitrofurantoin Macro 100 Mg Capsule PO 02/05/24 01:01 100 mg STAT ONE Administration Nitrofurantoin Macrocrystals Confirm 02/05/24 01:06 Nitrofurantoin Macro 100 Mg Capsule Administered 02/05/24 01:07 Dose 100 mg .ROUTE .STK-MED ONE Lab/Rad Data: Laboratory Result Diagrams 02/04/24 23:35 02/04/24 23:35 Laboratory Results 02/04/24 02/04/24 02/04/24 Range/Units 23:35 23:35 23:35 WBC (4.0-10.5) x10^3/uL RBC (4.1-5.6) x10^6/uL Hgb (12.5-18.0) g/dL Hct (42-50) % MCV (78-100) fL MCH (26-32) pg MCHC (32-36) g/dL RDW (11.5-14.0) % Plt Count (150-450) x10^3/uL MPV (7.5-11.0) fL Gran % (36.0-66.0) % Immature Gran % (Auto) (0.00-0.4) % Nucleat RBC Rel Count (0.00-0.1) % Eos # (Auto) (0-0.5) x10^3/uL Immature Gran # (Auto) (0.00-0.03) x10^3u/L Absolute Lymphs (auto) (1.0-4.6) x10^3/uL Absolute Monos (auto) (0.0-1.3) x10^3/uL Absolute Nucleated RBC (0.00-0.01) x10^3u/L Lymphocytes % (24.0-44.0) % Monocytes % (0.0-12.0) % Eosinophils % (0.00-5.0) % Basophils % (0.0-0.4) % Absolute Granulocytes (1.4-6.9) x10^3/uL Basophils # (0-0.4) x10^3/uL Sodium 138 (135-145) mmol/L Potassium 3.7 (3.5-5.1) mmol/L Chloride 104 (98-107) mmol/L Carbon Dioxide 26 (22-30) mmol/L Anion Gap 11.7 (5-15) MEQ/L BUN 15 (9-20) mg/dL Creatinine 1.51 H (0.66-1.25) mg/dL Estimated GFR 66.6 ML/MIN Glucose 134 H (74-106) mg/dL Calcium 9.2 (8.4-10.2) mg/dL Total Bilirubin 0.40 (0.2-1.3) mg/dL AST 33 (17-59) U/L ALT 56 H (0-50) U/L Alkaline Phosphatase 74 (38-126) U/L Serum Total Protein 7.3 (6.3-8.2) g/dL Albumin 4.2 (3.5-5.0) g/dL Urine Color Dark Yellow (Yellow) Urine Appearance Clear (Clear) Urine pH 5.5 (4.6-8.0) Ur Specific [place] 1.025 (1.005-1.030) Urine Protein >=1000 A (Negative) Urine Glucose (UA) Negative (Negative) mg/dL Urine Ketones Trace A (Negative) Urine Blood Large A (Negative) Urine Nitrite Negative (Negative) Urine Bilirubin Negative (Negative) Urine Urobilinogen 1.0 A (0.2) mg/dL Ur Leukocyte Esterase Negative (Negative) U Hyaline Cast (Auto) 3-5 A (0-2) /LPF Urine Microscopic RBC 3-5 (0-5) /HPF Urine Microscopic WBC 11-20 A (0-5) /HPF Ur Epithelial Cells None Seen (None Seen) /HPF Urine Bacteria None Seen (None Seen) /HPF Urine Culture Reflexed YES (NO) Salicylates < 1.0 L (2-20) mg/dL Urine Opiates Level NEGATIVE (NEGATIVE) Ur Methadone NEGATIVE (NEGATIVE) Acetaminophen < 10 L (10-30) ug/ml Urine Barbiturates NEGATIVE (NEGATIVE) Ur Phencyclidine (PCP) NEGATIVE (NEGATIVE) Urine Amphetamine NEGATIVE (NEGATIVE) U Benzodiazepine Level NEGATIVE (NEGATIVE) Urine Cocaine NEGATIVE (NEGATIVE) Urine Marijuana (THC) POSITIVE A (NEGATIVE) Ethyl Alcohol < 10 (0-10) mg/dL 02/04/24 Range/Units 23:35 WBC 9.2 (4.0-10.5) x10^3/uL RBC 5.37 (4.1-5.6) x10^6/uL Hgb 15.5 (12.5-18.0) g/dL Hct 45.6 (42-50) % MCV 84.9 (78-100) fL MCH 28.9 (26-32) pg MCHC 34.0 (32-36) g/dL RDW 12.3 (11.5-14.0) % Plt Count 358 (150-450) x10^3/uL MPV 8.9 (7.5-11.0) fL Gran % 75.2 H (36.0-66.0) % Immature Gran % (Auto) 0.3 (0.00-0.4) % Nucleat RBC Rel Count 0.0 (0.00-0.1) % Eos # (Auto) 0.09 (0-0.5) x10^3/uL Immature Gran # (Auto) 0.03 (0.00-0.03) x10^3u/L Absolute Lymphs (auto) 1.55 (1.0-4.6) x10^3/uL Absolute Monos (auto) 0.59 (0.0-1.3) x10^3/uL Absolute Nucleated RBC 0.00 (0.00-0.01) x10^3u/L Lymphocytes % 16.8 L (24.0-44.0) % Monocytes % 6.4 (0.0-12.0) % Eosinophils % 1.0 (0.00-5.0) % Basophils % 0.3 (0.0-0.4) % Absolute Granulocytes 6.91 H (1.4-6.9) x10^3/uL Basophils # 0.03 (0-0.4) x10^3/uL Sodium (135-145) mmol/L Potassium (3.5-5.1) mmol/L Chloride (98-107) mmol/L Carbon Dioxide (22-30) mmol/L Anion Gap (5-15) MEQ/L BUN (9-20) mg/dL Creatinine (0.66-1.25) mg/dL Estimated GFR ML/MIN Glucose (74-106) mg/dL Calcium (8.4-10.2) mg/dL Total Bilirubin (0.2-1.3) mg/dL AST (17-59) U/L ALT (0-50) U/L Alkaline Phosphatase (38-126) U/L Serum Total Protein (6.3-8.2) g/dL Albumin (3.5-5.0) g/dL Urine Color (Yellow) Urine Appearance (Clear) Urine pH (4.6-8.0) Ur Specific [place] (1.005-1.030) Urine Protein (Negative) Urine Glucose (UA) (Negative) mg/dL Urine Ketones (Negative) Urine Blood (Negative) Urine Nitrite (Negative) Urine Bilirubin (Negative) Urine Urobilinogen (0.2) mg/dL Ur Leukocyte Esterase (Negative) U Hyaline Cast (Auto) (0-2) /LPF Urine Microscopic RBC (0-5) /HPF Urine Microscopic WBC (0-5) /HPF Ur Epithelial Cells (None Seen) /HPF Urine Bacteria (None Seen) /HPF Urine Culture Reflexed (NO) Salicylates (2-20) mg/dL Urine Opiates Level (NEGATIVE) Ur Methadone (NEGATIVE) Acetaminophen (10-30) ug/ml Urine Barbiturates (NEGATIVE) Ur Phencyclidine (PCP) (NEGATIVE) Urine Amphetamine (NEGATIVE) U Benzodiazepine Level (NEGATIVE) Urine Cocaine (NEGATIVE) Urine Marijuana (THC) (NEGATIVE) Ethyl Alcohol (0-10) mg/dL - Progress Progress: improved Progress Note: 23-year-old male presents to our ED with complaints of dizziness after ingesting delta 8 gummy bears at a gas station. Patient mildly tachycardic of problem presentation. Laboratory workup reveals positive marijuana. IV fluids admin istered. Tachycardia resolved. Patient reassessed. Dizziness resolved. Patient currently asymptomatic and states he is ready for discharge. No indication for further workup. Patient advised of urinalysis results which shows hematuria proteinuria elevated serum creatinine. Patient has a pyuria which is suggestive of urinary tract infection. Patient advised of the findings. We considered treating with Levaquin, ciprofloxacin, Bactrim however these medications cause adverse reactions with his current medication regimen. Patient is penicillin candidate. Macrobid administered. A prescription for the same provided pending urine culture. Patient voices no other complaints at this time. He will follow-up with his primary care doctor within 48 hours for evaluation. Portions of this note were created with voice recognition technology. There may be grammatical, spelling, punctuation or sound alike errors Complexity problem addressed is moderate acute complicated No critical care time Complex of data reviewed and analyzed is moderate. Test ordered test reviewed results analyzed and correlated clinically with history and physical examination. Risk of complication and or risk of morbidity/mortality patient management is moderate. A prescription for Macrobid forwarded to patient's pharmacy. Vital stable. Patient reassessed. He is currently asymptomatic. Workup reveals urinary tract infection. Antibiotic therapy administered. Prescription for antibiotic forwarded to patient's pharmacy. Patient agrees to follow-up with his primary care doctor within 48 hours for evaluation. Plan of care established for shared decision making. No social determinants of health present impede follow-up. Portions of this note were created with voice recognition technology. There may be grammatical, spelling, punctuation or sound alike errors 02/05/24 01:11 Counseled pt/family regarding: lab results, diagnosis, need for follow-up - Departure Departure Disposition: Home Clinical Impression: UTI (urinary tract infection), Proteinuria, Hematuria, Pyuria Condition: Stable Critical Care Time: No Referrals: ALMITA MALHOTRA CLARIFIER OPERATOR [Primary Care Provider] - Follow up/PCP as directed Additional Instructions: Discharge/Care Plan MANJEET FLOWER was seen on 02/05/24 in the Emergency Room. The patient was counseled regarding Diagnosis,Lab results, Imaging studies, need for follow up and when to return to the Emergency Room. Prescriptions given: Discharge Note I have spoken with the patient and/or caregivers. I have explained the patient's condition, diagnosis and treatment plan based on the information available to me at this time. I have answered the patient's and/or caregiver's questions and addressed any concerns. The patient and/or caregivers have as good understanding of the patient's diagnosis, condition and treatment plan as can be expected at this point. The vital signs have been stable. The patient's condition is stable and appropriate for discharge from the emergency department. The patient will pursue further outpatient evaluation with the primary care physician or other designated or consulting physician as outlined in the discharge instructions. The patient and/or caregivers are agreeable to this plan of care and follow-up instructions have been explained in detail. The patient and/or caregivers have received these instruction. The patient/and or caregivers are aware that any significant change in condition or worsening of symptoms should prompt an immediate return to this or the closest emergency department or call 911. Prescriptions: Nitrofurantoin Macro 100 mg [Macrobid 100MG Capsule] 100 mg PO BID 7 Days #14 cap
[2024-02-04 23:54] LABS: ACETAMINOPHEN < 10 ug/ml (10-30); ALBUMIN 4.2 g/dL (3.5-5.0); ALKALINE PHOSPHATASE 74 U/L (38-126); ANION GAP 11.7 MEQ/L (5-15); BLOOD UREA NITROGEN 15 mg/dL (9-20); CHLORIDE 104 mmol/L (98-107); Calcium 9.2 mg/dL (8.4-10.2); Carbon Dioxide 26 mmol/L (22-30); Creatinine 1 1.51 mg/dL (0.66-1.25); EST GLOMERULAR FILTRATION RATE 66.6 ML/MIN; ETHYL ALCOHOL < 10 mg/dL (0-10); Glucose 134 mg/dL (74-106); Potassium 3.7 mmol/L (3.5-5.1); SALICYLATE < 1.0 mg/dL (2-20); SGOT/AST 33 U/L (17-59); SGPT/ALT 56 U/L (0-50); SODIUM 138 mmol/L (135-145); Total Protein 7.3 g/dL (6.3-8.2)
[2024-02-05] LABS: Amphetamine,Urine NEGATIVE (NEGATIVE); Barbiturate,Urine NEGATIVE (NEGATIVE); Benzodiazepine,Urine NEGATIVE (NEGATIVE); Cocaine,Urine NEGATIVE (NEGATIVE); Methadone,Urine NEGATIVE (NEGATIVE); Opiate,Urine NEGATIVE (NEGATIVE); PCP,Urine NEGATIVE (NEGATIVE)
[2024-02-05 00:10] LABS: THC,Urine POSITIVE (NEGATIVE)
[2024-02-05 00:17] LABS: Appearance Clear (Clear); Bacteria None Seen /HPF (None Seen); Bilirubin Negative (Negative); Blood Large (Negative); Epithelial Cells None Seen /HPF (None Seen); Glucose, Urine Negative (Negative); Ketones Trace (Negative); Leukocyte Esterase Negative (Negative); Nitrite Negative (Negative); Ph 5.5 (4.6-8.0); Protein,Urine Dip >=1000 (Negative); Specific Gravity 1.025 (1.005-1.030)
[2024-02-05 00:18] LABS: ADD URINE CULTURE? YES (NO)
[2024-02-05 01:03] VITALS: BP 122/75; PULSE 93; RESP 27
[2024-02-05 01:05] VITALS: O2SAT 97
[2024-02-05] MEDS ORDERED: Macrobid 100MG Capsule ONE (01:06)
[2024-02-05] MEDS: Macrobid 100MG Capsule PO ONE (01:07)
== END 2024-02-05 01:20 | disposition home or self-care (01) ==
LOC: ED 22:46
DX: N39.0 Urinary tract infection, site not specified (principal); R42 Dizziness and giddiness; R80.9 Proteinuria, unspecified; R31.9 Hematuria, unspecified; R00.0 Tachycardia, unspecified
CPT/HCPCS: 36000; 36415; 80053; 80143; 80179; 80307; 81001; 82077; 85025; 87086; 93005; 96360; 99284; A9270-GY

== ENCOUNTER 2024-02-26 21:41 | Emergency (ER) | payer MEDICAID ==
[2024-02-26 21:57] VITALS: TEMP 99
[2024-02-26] MEDS ORDERED: Sodium Chloride 0.9% 1000 ML 1,000 ML ONE (22:30)
[2024-02-26 22:31] LABS: Absolute Neutrophil Ct (ANC) 3.45 x10^3/uL (1.4-6.9); BASOPHIL % 0.5 % (0.0-0.4); Basophil (Absolute #) 0.03 x10^3/uL (0-0.4); Eosinophil % 2.2 % (0.00-5.0); Eosinophil (Absolute #) 0.13 x10^3/uL (0-0.5); Hematocrit 45.3 % (42-50); Hemoglobin 15.4 g/dL (12.5-18.0); IMMATURE GRAN # 0.03 x10^3u/L (0.00-0.03); IMMATURE GRAN % 0.5 % (0.00-0.4); Lymphocyte (Absolute #) 1.93 x10^3/uL (1.0-4.6); Mean Cell Volume 84.4 fL (78-100); Mean Corpuscular Hemoglobin 28.7 pg (26-32); Mean Platelet Volume 8.8 fL (7.5-11.0); Monocyte (Absolute #) 0.47 x10^3/uL (0.0-1.3); Monocytes % 7.8 % (0.0-12.0); Platelet Count 331 x10^3/uL (150-450); Red Blood Count 5.37 x10^6/uL (4.1-5.6); Red Cell Distribution Width 12.1 % (11.5-14.0)
[2024-02-26] MEDS: Sodium Chloride 0.9% 1000 ML 1,000 ML IV STA (22:31)
--- NOTE | 2024-02-26 22:38 | ERPHSYRPT ---
- History of Present Illness Time Seen by Provider: 02/26/24 21:55 Source: patient Exam Limitations: no limitations Patient Subjective Stated Complaint: pt states that he has been having diarrhea and black stools for the past 8 months on and off. pt states he has a colonos copy and EGD scheduled for march 09 Triage Nursing Assessment: pt ambulated into the er; pt is axo x4; c/o diarrhea; abd soft, round, non-tender; active bowel sounds in all quads; c/o nausea and diarrhea; skin PDW; no respiratory distress present; vitals wnl Physician History: 23-year-old male presents to our ED for evaluation of his hemoglobin. Patient states he has been experiencing dark stools for 8 months. Patient followed up with his primary care doctor. He is currently scheduled for an outpatient EGD and colonoscopy. Patient states that he "feels a little off" and wants his blood work checked. No pain. No nausea no vomiting no diarrhea no rash. No chest pain or shortness of breath. No numbness tingling or weakness. Patient states he was a heavy drinker but quit approximately 2 months ago. Patient otherwise feels well. He voices no other complaints or concerns at this time. Portions of this note were created with voice recognition technology. There may be grammatical, spelling, punctuation or sound alike errors Timing/Duration: today Severity: mild Modifying Factors: Improves With: nothing Associated Symptoms: denies symptoms Allergies/Adverse Reactions: Penicillins Allergy (Verified 02/26/24 21:47) Home Medications: Fluoxetine HCl 20 mg [Prozac 20 MG] 2 cap PO DAILY 09/03/23 [History] hydrOXYzine HCL [Hydroxyzine HCl] 50 mg PO QIDPRN PRN 11/07/23 [History] Clonidine HCl 0.1 mg [Clonidine 0.1 mg Tablet] 0.2 mg PO HS 12/18/23 [History] Gabapentin [Neurontin ] 300 mg PO TID 12/18/23 [History] Melatonin 10 mg PO HS 01/14/24 [History] Sucralfate [Carafate] 1 gm PO QID 01/14/24 [History] Trazodone HCl 100 mg PO HS 01/14/24 [History] Omeprazole 20 mg PO DAILY 02/04/24 [History] Hx Tetanus, Diphtheria Vaccination/Date Given: Yes Hx Influenza Vaccination/Date Given: No Hx Pneumococcal Vaccination/Date Given: No Travel Risk - International Travel Have you traveled outside of the country in past 3 weeks: No - Emerging Infectious Disease Are you exhibiting symptoms associated with any current EIDs: No Symptoms: Other (Please Comment) Comment: dizziness - Review of Systems Constitutional: No Symptoms, No Fever, No Chills Eyes: No Symptoms Ears, Nose, & Throat: No Symptoms Respiratory: No Symptoms, No Cough, No Dyspnea Cardiac: No Symptoms, No Chest Pain, No Edema, No Syncope Abdominal/Gastrointestinal: No Symptoms, No Abdominal Pain, No Nausea, No Vomiting, No Diarrhea Genitourinary Symptoms: No Symptoms, No Dysuria Musculoskeletal: No Symptoms, No Back Pain, No Neck Pain Skin: No Symptoms, No Rash Neurological: No Symptoms, No Dizziness, No Focal Weakness, No Sensory Changes Psychological: No Symptoms Endocrine: No Symptoms Hematologic/Lymphatic: No Symptoms Immunological/Allergic: No Symptoms All Other Systems: Reviewed and Negative - Past Medical History Pertinent Past Medical History: Yes Neurological History: No Pertinent History, Epilepsy ENT History: No Pertinent History Cardiac History: No Pertinent History Respiratory History: Pneumonia Endocrine Medical History: No Pertinent History Musculoskeletal History: No Pertinent History GI Medical History: Hernia History: No Pertinent History Psycho-Social History: Anxiety, Bipolar, Depression, Other Male Reproductive Disorders: No Pertinent History Other Medical History: Autism, reactive attachment disorder - Past Surgical History Past Surgical History: Yes Neuro Surgical History: No Pertinent History Cardiac: No Pertinent History Respiratory: No Pertinent History Gastrointestinal: Hernia Repair Genitourinary: No Pertinent History Musculoskeletal: No Pertinent History Male Surgical History: No Pertinent History Other Surgical History: Hernia repair x2 - Social History Smoking Status: Never smoker Exposure to second hand smoke: No Drug Use: marijuana Patient Lives Alone: No - Nursing Vital Signs Nursing Vital Signs: Initial Vital Signs Blood Pressure 120/78 02/26/24 21:47 O2 Sat by Pulse Oximetry 98 02/26/24 21:47 Pain Scale Pain Intensity 0 - Physical Exam General Appearance: no apparent distress, alert Eye Exam: PERRL/EOMI, eyes nml inspection Ears, Nose, Throat Exam: normal ENT inspection, TMs normal, pharynx normal, moist mucous membranes Neck Exam: normal inspection, non-tender, supple, full range of motion Respiratory Exam: normal breath sounds, lungs clear, airway intact, No re spiratory distress Cardiovascular Exam: regular rate/rhythm, normal heart sounds, normal peripheral pulses Gastrointestinal/Abdomen Exam: soft, normal bowel sounds, No tenderness, No mass Back Exam: normal inspection, normal range of motion, No CVA tenderness, No vertebral tenderness Extremity Exam: normal inspection, normal range of motion, pelvis stable Neurologic Exam: alert, oriented x 3, cooperative, normal mood/affect, nml cerebellar function, nml station & gait, sensation nml, No motor deficits Skin Exam: normal color, warm, dry, No rash Lymphatic Exam: No adenopathy SpO2 Interpretation: normal SpO2: 98 O2 Delivery: Room Air - Course Nursing assessment & vital signs reviewed: Yes Ordered Tests: Active Orders 24 hr Category Date Time Status Web Content Coordinator STAT Care 02/26/24 22:06 Active IV Insertion STAT Care 02/26/24 22:05 Active Pulse Oximetry (ED) STAT Care 02/26/24 22:05 Active CBC W DIFF Stat Lab 02/26/24 22:25 Completed CMP Stat Lab 02/26/24 22:25 Completed NT PRO BNPII Stat Lab 02/26/24 22:25 Completed TROPONIN Q4H Lab 02/26/24 22:25 Completed TROPONIN Q4H Lab 02/27/24 02:15 Ordered TROPONIN Q4H Lab 02/27/24 06:15 Ordered UA W/RFX UR CULTURE Stat Lab 02/26/24 23:15 Received Medication Summary Discontinued Medications Generic Name Dose Route Start Last Admin Trade Name Freq PRN Reason Stop Dose Admin Sodium Chloride 1,000 mls @ 999 mls/hr 02/26/24 22:05 02/26/24 22:31 Sodium Chloride 0.9% 1000 Ml IV 02/26/24 23:05 999 mls/hr .Q1H1M STA Administration Sodium Chloride Confirm 02/26/24 22:30 Sodium Chloride 0.9% 1000 Ml Administered 02/26/24 22:31 Dose 1,000 mls @ ud .ROUTE .STK-MED ONE Lab/Rad Data: Laboratory Result Diagrams 02/26/24 22:25 02/26/24 22:25 Laboratory Results 02/26/24 02/26/24 02/26/24 Range/Units 22:25 22:25 22:25 WBC (4.0-10.5) x10^3/uL RBC (4.1-5.6) x10^6/uL Hgb (12.5-18.0) g/dL Hct (42-50) % MCV (78-100) fL MCH (26-32) pg MCHC (32-36) g/dL RDW (11.5-14.0) % Plt Count (150-450) x10^3/uL MPV (7.5-11.0) fL Gran % (36.0-66.0) % Immature Gran % (Auto) (0.00-0.4) % Nucleat RBC Rel Count (0.00-0.1) % Eos # (Auto) (0-0.5) x10^3/uL Immature Gran # (Auto) (0.00-0.03) x10^3u/L Absolute Lymphs (auto) (1.0-4.6) x10^3/uL Absolute Monos (auto) (0.0-1.3) x10^3/uL Absolute Nucleated RBC (0.00-0.01) x10^3u/L Lymphocytes % (24.0-44.0) % Monocytes % (0.0-12.0) % Eosinophils % (0.00-5.0) % Basophils % (0.0-0.4) % Absolute Granulocytes (1.4-6.9) x10^3/uL Basophils # (0-0.4) x10^3/uL Sodium 139 (135-145) mmol/L Potassium 3.8 (3.5-5.1) mmol/L Chloride 106 (98-107) mmol/L Carbon Dioxide 23 (22-30) mmol/L Anion Gap 14.1 (5-15) MEQ/L BUN 18 (9-20) mg/dL Creatinine 1.54 H (0.66-1.25) mg/dL Estimated GFR 65.0 ML/MIN Glucose 90 (74-106) mg/dL Calcium 9.2 (8.4-10.2) mg/dL Total Bilirubin 0.50 (0.2-1.3) mg/dL AST 37 (17-59) U/L ALT 41 (0-50) U/L Alkaline Phosphatase 80 (38-126) U/L Troponin I < 0.012 (0.000-0.033) ng/mL NT-Pro-B Natriuret Pep 95.7 (<300) pg/mL Serum Total Protein 7.4 (6.3-8.2) g/dL Albumin 4.3 (3.5-5.0) g/dL 02/26/24 Range/Units 22:25 WBC 6.0 (4.0-10.5) x10^3/uL RBC 5.37 (4.1-5.6) x10^6/uL Hgb 15.4 (12.5-18.0) g/dL Hct 45.3 (42-50) % MCV 84.4 (78-100) fL MCH 28.7 (26-32) pg MCHC 34.0 (32-36) g/dL RDW 12.1 (11.5-14.0) % Plt Count 331 (150-450) x10^3/uL MPV 8.8 (7.5-11.0) fL Gran % 57.0 (36.0-66.0) % Immature Gran % (Auto) 0.5 H (0.00-0.4) % Nucleat RBC Rel Count 0.0 (0.00-0.1) % Eos # (Auto) 0.13 (0-0.5) x10^3/uL Immature Gran # (Auto) 0.03 (0.00-0.03) x10^3u/L Absolute Lymphs (auto) 1.93 (1.0-4.6) x10^3/uL Absolute Monos (auto) 0.47 (0.0-1.3) x10^3/uL Absolute Nucleated RBC 0.00 (0.00-0.01) x10^3u/L Lymphocytes % 32.0 (24.0-44.0) % Monocytes % 7.8 (0.0-12.0) % Eosinophils % 2.2 (0.00-5.0) % Basophils % 0.5 (0.0-0.4) % Absolute Granulocytes 3.45 (1.4-6.9) x10^3/uL Basophils # 0.03 (0-0.4) x10^3/uL Sodium (135-145) mmol/L Potassium (3.5-5.1) mmol/L Chloride (98-107) mmol/L Carbon Dioxide (22-30) mmol/L Anion Gap (5-15) MEQ/L BUN (9-20) mg/dL Creatinine (0.66-1.25) mg/dL Estimated GFR ML/MIN Glucose (74-106) mg/dL Calcium (8.4-10.2) mg/dL Total Bilirubin (0.2-1.3) mg/dL AST (17-59) U/L ALT (0-50) U/L Alkaline Phosphatase (38-126) U/L Troponin I (0.000-0.033) ng/mL NT-Pro-B Natriuret Pep (<300) pg/mL Serum Total Protein (6.3-8.2) g/dL Albumin (3.5-5.0) g/dL - Progress Progress: improved Progress Note: 23-year-old male presents to our ED for evaluation of dark tarry stools. No pain. Hemoglobin appears to be stable. Patient reassessed he is well no complaints no pain vital stable. However it appears that patient's GFR is gradually decreasing at a significant rate over the past several months. Patient referred to nephrology for further evaluation and treatment. Patient agrees to follow-up with nephrology as advised. He will also follow-up with with the scheduled EGD colonoscopy. Patient voices no other complaints or concerns at this time. Portions of this note were created with voice recognition technology. There may be grammatical, spelling, punctuation or sound alike errors Complexity problem addressed is moderate acute complicated. No critical care time. Complexity of data reviewed and analyzed is moderate. Test ordered test reviewed results analyzed and correlated clinically with history and physical exam. Risk of complication and or risk of morbidity/mortality of patient management is low. Vital stable. Time spent to discharge patient is approximately 20 minutes. Plan of care established for shared decision making. No social determinants of health present impede follow-up. Patient agrees to follow-up with nephrology as discussed. Portions of this note were created with voice recognition technology. There may be grammatical, spelling, punctuation or sound alike errors 02/26/24 23:22 02/26/24 23:22 Counseled pt/family regarding: lab results, diagnosis, need for follow-up - Departure Departure Disposition: Home Clinical Impression: Elevated serum creatinine, Dark stools Condition: Stable Critical Care Time: No Referrals: ALMITA MALHOTRA NP [Primary Care Provider] - Follow up/PCP as directed AURA SCOTT [CONSULTING PHYSICIAN] - Follow up/PCP as directed Additional Instructions: Your kidney function appears to be diminishing. It is imperative that you follow-up with a external grinder tool for further evaluation. I have given you a referral to , external grinder tool for further evaluation of your kidney function Please be sure to follow-up with your scheduled colonoscopy and EGD for further evaluation of your dark stools. Discharge/Care Plan MANJEET FLOWER was seen on 02/26/24 in the Emergency Room. The patient was counseled regarding Diagnosis,Lab results, Imaging studies, need for follow up and when to return to the Emergency Room. Prescriptions given: Discharge Note I have spoken with the patient and/or caregivers. I have explained the patient's condition, diagnosis and treatment plan based on the information available to me at this time. I have answered the patient's and/or caregiver's questions and addressed any concerns. The patient and/or caregivers have as good understanding of the patient's diagnosis, condition and treatment plan as can be expected at this point. The vital signs have been stable. The patient's condition is stable and appropriate for discharge from the emergency department. The patient will pursue further outpatient evaluation with the primary care leroy martinez or other designated or consulting physician as outlined in the discharge instructions. The patient and/or caregivers are agreeable to this plan of care and follow-up instructions have been explained in detail. The patient and/or caregivers have received these instruction. The patient/and or caregivers are aware that any significant change in condition or worsening of symptoms should prompt an immediate return to this or the closest emergency department or call 911.
[2024-02-26 22:46] LABS: ALBUMIN 4.3 g/dL (3.5-5.0); ANION GAP 14.1 MEQ/L (5-15); BILIRUBIN,TOTAL 0.5 mg/dL (0.2-1.3); Calcium 9.2 mg/dL (8.4-10.2); Creatinine 1 1.54 mg/dL (0.66-1.25); Potassium 3.8 mmol/L (3.5-5.1); Total Protein 7.4 g/dL (6.3-8.2)
[2024-02-26 23:28] LABS: Appearance Clear (Clear); Bacteria None Seen /HPF (None Seen); Bilirubin Negative (Negative); Blood Large (Negative); Epithelial Cells None Seen /HPF (None Seen); Glucose, Urine Negative (Negative); Ketones Trace (Negative); Leukocyte Esterase Trace (Negative); Nitrite Negative (Negative); Protein,Urine Dip 300 (Negative); RBC 51-100 /HPF (0-5); Urobilinogen 0.2 mg/dL (0.2)
[2024-02-26 23:33] LABS: ADD URINE CULTURE? YES (NO)
[2024-02-26 23:34] VITALS: BP 117/74; PULSE 68; RESP 18; O2SAT 97
== END 2024-02-26 23:52 | disposition home or self-care (01) ==
LOC: ED 21:41
DX: R79.89 Other specified abnormal findings of blood chemistry (principal); K92.1 Melena; N39.0 Urinary tract infection, site not specified; Z79.899 Other long term (current) drug therapy
CPT/HCPCS: 36000; 36415; 80053; 81001; 83880; 84484; 85025; 87086; 93041; 94760; 96360; 99284

== ENCOUNTER 2024-05-05 12:15 | Emergency (ER) | payer MEDICAID ==
[2024-05-05 12:21] VITALS: TEMP 98.2
--- NOTE | 2024-05-05 12:47 | ERPHSYRPT ---
- History of Present Illness Time Seen by Provider: 05/05/24 12:45 Source: patient Exam Limitations: no limitations Patient Subjective Stated Complaint: PT states "I was here awhile ago for the same thing and they told me it was anxiety but it came back. My right arm feels tight and my chest is numb." Triage Nursing Assessment: Pt presented alert and oriented X 3, skin pwd. Pt ambulates with an upright steady gait, able to speak in clear full sentences. Pt slightly anxious, resting on bed. Physician History: 23-year-old male presents to our emergency department for evaluation of chest pain. Patient states his right arm feels numb. Patient had same symptoms the last time he was in our ED. Workup was negative patient was sent home. No trauma no fever. Patient currently denies chest pain. No nausea vomiting or diaphoresis. No shortness of breath. When present symptoms are moderate in intensity. Patient does not correlate symptoms with exertion. He otherwise feels well he voices no other complaints or concerns at this time. Portions of this note were created with voice recognition technology. There may be grammatical, spelling, punctuation or sound alike errors Timing/Duration: today Severity: moderate Modifying Factors: Improves With: nothing Associated Symptoms: denies symptoms Allergies/Adverse Reactions: Penicillins Allergy (Verified 02/26/24 21:47) Home Medications: Fluoxetine HCl 20 mg [Prozac 20 MG] 2 cap PO DAILY 09/03/23 [History] hydrOXYzine HCL [Hydroxyzine HCl] 50 mg PO QIDPRN PRN 11/07/23 [History] Gabapentin [Neurontin ] 300 mg PO TID 12/18/23 [History] Melatonin 10 mg PO HS 01/14/24 [History] Sucralfate [Carafate] 1 gm PO QID 01/14/24 [History] Trazodone HCl 100 mg PO HS 01/14/24 [History] Omeprazole 20 mg PO DAILY 02/04/24 [History] Clonidine HCl Tts-1 Patch [Catapres-TTS 1 PATCH] 0.1 mg TOP Q7D 05/05/24 [History] Desvenlafaxine Succinate [Desvenlafaxine Succinate ER] 25 mg PO DAILY 05/05/24 [History] Hx Tetanus, Diphtheria Vaccination/Date Given: Yes Hx Influenza Vaccination/Date Given: No Hx Pneumococcal Vaccination/Date Given: No Immunizations Up to Date: No Travel Risk - International Travel Have you traveled outside of the country in past 3 weeks: No - Emerging Infectious Disease Are you exhibiting symptoms associated with any current EIDs: No Symptoms: Other (Please Comment) Comment: dizziness - Review of Systems Constitutional: No Symptoms, No Fever, No Chills Eyes: No Symptoms Ears, Nose, & Throat: No Symptoms Respiratory: No Symptoms, No Cough, No Dyspnea Cardiac: No Symptoms, No Chest Pain, No Edema, No Syncope Abdominal/Gastrointestinal: No Symptoms, No Abdominal Pain, No Nausea, No Vomiting, No Diarrhea Genitourinary Symptoms: No Symptoms, No Dysuria Musculoskeletal: No Symptoms, No Back Pain, No Neck Pain Skin: No Symptoms, No Rash Neurological: No Symptoms, No Dizziness, No Focal Weakness, No Sensory Changes Psychological: No Symptoms Endocrine: No Symptoms Hematologic/Lymphatic: No Symptoms Immunological/Allergic: No Symptoms All Other Systems: Reviewed and Negative - Past Medical History Pertinent Past Medical History: Yes Neurological History: No Pertinent History, Epilepsy ENT History: No Pertinent History Cardiac History: No Pertinent History Respiratory History: Pneumonia Endocrine Medical History: No Pertinent History Musculoskeletal History: No Pertinent History GI Medical History: Hernia History: No Pertinent History Psycho-Social History: Anxiety, Bipolar, Depression, Other Male Reproductive Disorders: No Pertinent History Other Medical History: Autism, reactive attachment disorder - Past Surgical History Past Surgical History: Yes Neuro Surgical History: No Pertinent History Cardiac: No Pertinent History Respiratory: No Pertinent History Gastrointestinal: Hernia Repair Genitourinary: No Pertinent History Musculoskeletal: No Pertinent History Male Surgical History: No Pertinent History Other Surgical History: Hernia repair x2 - Social History Smoking Status: Never smoker Exposure to second hand smoke: No Drug Use: marijuana Patient Lives Alone: No - Social Determinants of Health Will the patient participate in the screening: Yes Do you worry about a steady place to live?: No Do you have any problems with any of the following?: No known problems In the past 12 months,have you had to go without utilities?: No Transportation Issues: No Has anyone in your support network made you feel unsafe?: No Have you or anyone in your house had to go without enough: No - Nursing Vital Signs Nursing Vital Signs: Initial Vital Signs Temperature 98.2 F 05/05/24 12:16 Pulse Rate 111 H 05/05/24 12:16 Respiratory Rate 20 05/05/24 12:16 Blood Pressure 137/96 05/05/24 12:16 O2 Sat by Pulse Oximetry 97 05/05/24 12:16 Pain Scale Pain Intensity 0 - Physical Exam General Appearance: no apparent distress, alert Eye Exam: PERRL/EOMI, eyes nml inspection Ears, Nose, Throat Exam: normal ENT inspection, TMs normal, pharynx normal, moist mucous membranes Neck Exam: normal inspection, non-tender, supple, full range of motion Respiratory Exam: normal breath sounds, lungs clear, airway intact, No respiratory distress Cardiovascular Exam: regular rate/rhythm, normal heart sounds, normal peripheral pulses Gastrointestinal/Abdomen Exam: soft, normal bowel sounds, No tenderness, No mass Back Exam: normal inspection, normal range of motion, No CVA tenderness, No vertebral tenderness Extremity Exam: normal inspection, normal range of motion, pelvis stable Neurologic Exam: alert, oriented x 3, cooperative, normal mood/affect, sensation nml, No motor deficits Skin Exam: normal color, warm, dry, No rash Lymphatic Exam: No adenopathy SpO2 Interpretation: normal SpO2: 97 O2 Delivery: Room Air - Course Nursing assessment & vital signs reviewed: Yes EKG Interpreted by Me: RATE (106), Sinus Tach, NORMAL AXIS, NORMAL INTERVALS, NORMAL QRS - Radiology Exams Chest X-ray Interpretation: Teleradiologist Report (No acute findings on chest x-ray) Ordered Tests: Active Orders 24 hr Category Date Time Status Distribution Superintendent STAT Care 05/05/24 12:30 Active EKG-ER Only STAT Care 05/05/24 12:30 Active IV Insertion STAT Care 05/05/24 12:30 Active CHEST 1 VIEW (PORTABLE) Stat Exams 05/05/24 12:30 Completed CBC W DIFF Stat Lab 05/05/24 13:38 Completed CMP Stat Lab 05/05/24 13:38 Completed TROPONIN Q4H Lab 05/05/24 13:38 Completed TROPONIN Q4H Lab 05/05/24 15:25 Completed TROPONIN Q4H Lab 05/05/24 20:30 Ordered Lab/Rad Data: Laboratory Result Diagrams 05/05/24 13:38 05/05/24 13:38 Laboratory Results 07/16/24 07/16/24 07/16/24 Range/Units 15:25 13:38 13:38 WBC 9.8 H (4.23-9.07) x10^3/uL RBC 5.28 (4.63-6.08) x10^6/uL Hgb 14.9 (13.7-17.5) g/dL Hct 44.5 (40.1-51.0) % MCV 84.3 (79.0-92.2) fL MCH 28.2 (25.7-32.2) pg MCHC 33.5 (32.3-36.5) g/dL RDW 12.7 (11.6-14.4) % Plt Count 338 H (163-337) x10^3/uL MPV 8.9 L (9.4-12.4) fL Gran % 71.7 H (34.0-67.9) % Immature Gran % (Auto) 0.4 (0.001-0.429) % Nucleat RBC Rel Count 0.0 (0.00-0.2) % Eos # (Auto) 0.11 (0.04-0.54) x10^3/uL Immature Gran # (Auto) 0.04 H (0.001-0.031) x10^3u/L Absolute Lymphs (auto) 1.86 (1.32-3.57) x10^3/uL Absolute Monos (auto) 0.73 (0.30-0.82) x10^3/uL Absolute Nucleated RBC 0.00 (0.00-0.012) x10^3u/L Lymphocytes % 19.0 L (21.8-53.1) % Monocytes % 7.4 (5.3-12.2) % Eosinophils % 1.1 (0.8-7.0) % Basophils % 0.4 (0.2-1.2) % Absolute Granulocytes 7.02 H (1.78-5.38) x10^3/uL Basophils # 0.04 (0.01-0.08) x10^3/uL Sodium 139 (135-145) mmol/L Potassium 4.4 (3.5-5.1) mmol/L Chloride 104 (98-107) mmol/L Carbon Dioxide 29 (22-30) mmol/L Anion Gap 10.0 (5-15) MEQ/L BUN 20 (9-20) mg/dL Creatinine 1.50 H (0.66-1.25) mg/dL Estimated GFR 67.1 ML/MIN Glucose 100 (74-106) mg/dL Calcium 9.4 (8.4-10.2) mg/dL Total Bilirubin 0.30 (0.2-1.3) mg/dL AST 25 (17-59) U/L ALT 30 (0-50) U/L Alkaline Phosphatase 61 (38-126) U/L Troponin I < 0.012 < 0.012 (0.000-0.033) ng/mL Serum Total Protein 6.6 (6.3-8.2) g/dL Albumin 4.0 (3.5-5.0) g/dL - Progress Progress: improved Progress Note: 23-year-old male presents to our ED for evaluation of chest pain. No shortness of breath. Physical exam unremarkable. Troponin negative x 2. Chest x-ray negative for acute findings. EKG sinus tachycardia at 106. Heart rate no rmalized to this 71. Patient remains asymptomatic. Vital stable. No indication for further workup. Will discharge home. Patient agrees to follow- up with his primary care doctor within 48 hours for reevaluation. Of note patient has chronic renal insufficiency. Patient has started to see a neph rologist. Patient's creatinine improved from 1.54-1.50. Portions of this note were created with voice recognition technology. There may be grammatical, spelling, punctuation or sound alike errors Complexity problem addressed is moderate acute complicated. No critical care time. Complexity of data reviewed and analyzed is moderate. Test ordered test reviewed results analyzed and correlated clinically with history and physical exam. Risk of complication and or risk of morbidity/mortality patient management is low. Vital stable. Time spent to discharge patient approximately 15 minutes. Plan of care established for shared decision making. No social determinants of health present impede follow-up. Portions of this note were created with voice recognition technology. There may be grammatical, spelling, punctuation or sound alike errors 05/05/24 16:18 Counseled pt/family regarding: lab results, diagnosis, need for follow-up, rad results - Departure Departure Disposition: Home Clinical Impression: Chest pain Condition: Stable Critical Care Time: No Referrals: ALMITA MALHOTRA NP [Primary Care Provider] - Follow up/PCP as directed Additional Instructions: Discharge/Care Plan MANJEET FLOWER was seen on 05/05/24 in the Emergency Room. The patient was counseled regarding Diagnosis,Lab results, Imaging studies, need for follow up and when to return to the Emergency Room. Prescriptions given: Discharge Note I have spoken with the patient and/or caregivers. I have explained the patient's condition, diagnosis and treatment plan based on the information available to me at this time. I have answered the patient's and/or caregiver's questions and ad dressed any concerns. The patient and/or caregivers have as good understanding of the patient's diagnosis, condition and treatment plan as can be expected at this point. The vital signs have been stable. The patient's condition is stable and appropriate for discharge from the emergency department. The patient will pursue further outpatient evaluation with the primary care physician or other designated or consulting physician as outlined in the discharge instructions. The patient and/or caregivers are agreeable to this plan of care and follow-up instructions have been explained in detail. The patient and/or caregivers have received these instruction. The patient/and or caregivers are aware that any significant change in condition or worsening of symptoms should prompt an immediate return to this or the closest emergency department or call 911.
--- NOTE | 2024-05-05 13:22 | XRAY ---
Indication: Pain. Comparison: September 03, 2023 Portable chest continues to demonstrate normal heart, lungs, and bony thorax.
[2024-05-05 13:28] VITALS: RESP 19
[2024-05-05 13:45] LABS: Absolute Neutrophil Ct (ANC) 7.02 x10^3/uL (1.78-5.38); BASOPHIL % 0.4 % (0.2-1.2); Basophil (Absolute #) 0.04 x10^3/uL (0.01-0.08); Eosinophil % 1.1 % (0.8-7.0); Eosinophil (Absolute #) 0.11 x10^3/uL (0.04-0.54); Hematocrit 44.5 % (40.1-51.0); Hemoglobin 14.9 g/dL (13.7-17.5); IMMATURE GRAN # 0.04 x10^3u/L (0.001-0.031); IMMATURE GRAN % 0.4 % (0.001-0.429); Lymphocyte (Absolute #) 1.86 x10^3/uL (1.32-3.57); Mean Cell Volume 84.3 fL (79.0-92.2); Mean Corpuscular Hemoglobin 28.2 pg (25.7-32.2); Mean Corpuscular Hgb Concent. 33.5 g/dL (32.3-36.5); Mean Platelet Volume 8.9 fL (9.4-12.4); Monocyte (Absolute #) 0.73 x10^3/uL (0.30-0.82); Monocytes % 7.4 % (5.3-12.2); Neutrophil % 71.7 % (34.0-67.9); Platelet Count 338 x10^3/uL (163-337); Red Blood Count 5.28 x10^6/uL (4.63-6.08); Red Cell Distribution Width 12.7 % (11.6-14.4); White Blood Count 9.8 x10^3/uL (4.23-9.07)
[2024-05-05 14:03] VITALS: PULSE 88
[2024-05-05 14:10] LABS: ALKALINE PHOSPHATASE 61 U/L (38-126); BLOOD UREA NITROGEN 20 mg/dL (9-20); CHLORIDE 104 mmol/L (98-107); Calcium 9.4 mg/dL (8.4-10.2); Carbon Dioxide 29 mmol/L (22-30); EST GLOMERULAR FILTRATION RATE 67.1 ML/MIN; Glucose 100 mg/dL (74-106); Potassium 4.4 mmol/L (3.5-5.1); SGOT/AST 25 U/L (17-59); SGPT/ALT 30 U/L (0-50); SODIUM 139 mmol/L (135-145); TROPONIN < 0.012 ng/mL (0.000-0.033); Total Protein 6.6 g/dL (6.3-8.2)
[2024-05-05 16:14] VITALS: O2SAT 97
[2024-05-05 16:18] VITALS: BP 148/64
== END 2024-05-05 16:24 | disposition home or self-care (01) ==
LOC: ED 12:15
DX: R07.9 Chest pain, unspecified (principal); Z79.899 Other long term (current) drug therapy
CPT/HCPCS: 36415; 71045; 80053; 84484; 85025; 93005; 93041; 99284

== ENCOUNTER 2024-05-19 01:52 | Emergency (ER) | payer MEDICAID ==
[2024-05-19 02:11] VITALS: TEMP 98.5
--- NOTE | 2024-05-19 02:26 | ERPHSYRPT ---
- History of Present Illness Time Seen by Provider: 05/19/24 01:53 Historian: patient Exam Limitations: no limitations Patient Subjective Stated Complaint: pt states he has beenh aving intermittent chest pain for the last month tonight he has been having palpitations also. Triage Nursing Assessment: pt alert and oriented, answers questions approp. pt ambulates into room with steadygait noted. respirations nonlabored. skin waram and dry. heart rate 99 on monitor, sinus rhythm. Physician History: 23 years old male with history of hypertension, anxiety/depression, presented in the ER with intermittent chest pain for almost a month which are getting worse lately. Patient reports tightness pressure and racing of heart. Patient denies any excessive intake of caffeine drinks/energy drinks or any drug/alcohol intake . Patient reports she recently had lab work done with elevated lipid panel which he is very anxious about. Allergies/Adverse Reactions: Penicillins Allergy (Unknown, Verified 05/19/24 02:11) Home Medications: hydrOXYzine HCL [Hydroxyzine HCl] 50 mg PO DAILY PRN PRN 11/07/23 [History] Gabapentin [Neurontin ] 300 mg PO TID 12/18/23 [History] Sucralfate [Carafate] 1 gm PO QID 01/14/24 [History] Trazodone HCl 100 mg PO HS 01/14/24 [History] Omeprazole 20 mg PO DAILY 02/04/24 [History] Desvenlafaxine Succinate [Desvenlafaxine Succinate ER] 50 mg PO DAILY 05/05/24 [History] Clonidine HCl Tts-2 Patch [Catapres TTS-2 PATCH] 0.2 mg TOP Q7D 05/19/24 [History] Divalproex Sodium ER 250 mg [Depakote EXTENDED RELEASE 250 MG] 500 mg PO DAILY 05/19/24 [History] Famotidine [Pepcid] 40 mg PO DAILY 05/19/24 [History] Metoprolol Tartrate 25 mg [Lopressor 25MG Tab] 25 mg PO DAILY 05/19/24 [History] Quetiapine Fumarate 25 mg [Seroquel 25 MG] 25 mg PO BID 05/19/24 [History] Quetiapine Fumarate [Seroquel] 50 mg PO HS 05/19/24 [History] lisinopriL [Zestril] 40 mg PO DAILY 05/19/24 [History] Hx Tetanus, Diphtheria Vaccination/Date Given: Yes Hx Influenza Vaccination/Date Given: No Hx Pneumococcal Vaccination/Date Given: No Immunizations Up to Date: Yes Travel Risk - International Travel Have you traveled outside of the country in past 3 weeks: No - Emerging Infectious Disease Are you exhibiting symptoms associated with any current EIDs: No Symptoms: Other (Please Comment) Comment: dizziness - Review of Systems Constitutional: No Symptoms Eyes: No Symptoms Ears, Nose, & Throat: No Symptoms Respiratory: No Symptoms Cardiac: Palpitations Abdominal/Gastrointestinal: No Symptoms Musculoskeletal: No Symptoms Skin: No Symptoms Neurological: No Symptoms Psychological: Anxiety Endocrine: No Symptoms Hematologic/Lymphatic: No Symptoms - Past Medical History Pertinent Past Medical History: Yes Neurological History: No Pertinent History, Epilepsy ENT History: No Pertinent History Cardiac History: No Pertinent History Respiratory History: Pneumonia Endocrine Medical History: No Pertinent History Musculoskeletal History: No Pertinent History GI Medical History: Hernia History: No Pertinent History Psycho-Social History: Anxiety, Bipolar, Depression, Other Male Reproductive Disorders: No Pertinent History Other Medical History: Autism, reactive attachment disorder - Past Surgical History Past Surgical History: Yes Neuro Surgical History: No Pertinent History Cardiac: No Pertinent History Respiratory: No Pertinent History Gastrointestinal: Hernia Repair Genitourinary: No Pertinent History Musculoskeletal: No Pertinent History Male Surgical History: No Pertinent History Other Surgical History: Hernia repair x2. egd and colonoscopy - Social History Smoking Status: Never smoker Exposure to second hand smoke: No Drug Use: marijuana Patient Lives Alone: No - Social Determinants of Health Will the patient participate in the screening: Declined to provide - Nursing Vital Signs Nursing Vital Signs: Initial Vital Signs Temperature 98.5 F 05/19/24 01:59 Pulse Rate 99 H 05/19/24 01:59 Respiratory Rate 18 05/19/24 01:59 Blood Pressure 143/93 05/19/24 01:59 O2 Sat by Pulse Oximetry 97 05/19/24 01:59 Pain Scale Pain Intensity 2 - Physical Exam General Appearance: no apparent distress, alert, anxiety Eye Exam: PERRL/EOMI Ears, Nose, Throat Exam: normal ENT inspection, pharynx normal, moist mucous m embranes Neck Exam: normal inspection, non-tender, supple, full range of motion Respiratory Exam: normal breath sounds, lungs clear Cardiovascular Exam: regular rate/rhythm, normal heart sounds Gastrointestinal/Abdomen Exam: soft, normal bowel sounds, No tenderness Back Exam: normal inspection, normal range of motion Extremity Exam: normal inspection, normal range of motion Neurologic Exam: alert, oriented x 3, cooperative, sediment remediation consultant II-XII nml as tested Skin Exam: normal color SpO2 Interpretation: normal SpO2: 97 O2 Delivery: Room Air Ordered Tests: Active Orders 24 hr Category Date Time Status Trailer Truck Driver STAT Care 05/19/24 02:18 Active EKG-ER Only STAT Care 05/19/24 02:17 Active IV Insertion STAT Care 05/19/24 02:17 Active CHEST 1 VIEW (PORTABLE) Stat Exams 05/19/24 02:18 Taken CHEST WITH CONTRAST [CT] Stat Exams 05/19/24 03:26 Completed CBC W DIFF Stat Lab 05/19/24 02:35 Completed CMP Stat Lab 05/19/24 02:35 Completed D-DIMER QUANTITATIVE Stat Lab 05/19/24 02:35 Completed MAG [MAGNESIUM] Stat Lab 05/19/24 02:35 Completed NT PRO BNPII Stat Lab 05/19/24 02:35 Completed TROPONIN Q4H Lab 05/19/24 02:35 Completed TROPONIN Q4H Lab 05/19/24 06:30 Ordered TROPONIN Q4H Lab 05/19/24 10:30 Ordered Urine Triage Profile Stat Lab 05/19/24 02:43 Completed Medication Summary Discontinued Medications Generic Name Dose Route Start Last Admin Trade Name Freq PRN Reason Stop Dose Admin Sodium Chloride 1,000 mls @ 999 mls/hr 05/19/24 02:17 05/19/24 02:45 Sodium Chloride 0.9% 1000 Ml IV 05/19/24 03:17 999 mls/hr .Q1H1M STA Administration Sodium Chloride Confirm 05/19/24 02:43 Sodium Chloride 0.9% 1000 Ml Administered 05/19/24 02:44 Dose 1,000 mls @ ud .ROUTE .STK-MED ONE Lab/Rad Data: Laboratory Result Diagrams 05/19/24 02:35 05/19/24 02:35 Laboratory Results 05/19/24 05/19/24 05/19/24 Range/Units 02:43 02:35 02:35 WBC (4.23-9.07) x10^3/uL RBC (4.63-6.08) x10^6/uL Hgb (13.7-17.5) g/dL Hct (40.1-51.0) % MCV (79.0-92.2) fL MCH (25.7-32.2) pg MCHC (32.3-36.5) g/dL RDW (11.6-14.4) % Plt Count (163-337) x10^3/uL MPV (9.4-12.4) fL Gran % (34.0-67.9) % Immature Gran % (Auto) (0.001-0.429) % Nucleat RBC Rel Count (0.00-0.2) % Eos # (Auto) (0.04-0.54) x10^3/uL Immature Gran # (Auto) (0.001-0.031) x10^3u/L Absolute Lymphs (auto) (1.32-3.57) x10^3/uL Absolute Monos (auto) (0.30-0.82) x10^3/uL Absolute Nucleated RBC (0.00-0.012) x10^3u/L Lymphocytes % (21.8-53.1) % Monocytes % (5.3-12.2) % Eosinophils % (0.8-7.0) % Basophils % (0.2-1.2) % Absolute Granulocytes (1.78-5.38) x10^3/uL Basophils # (0.01-0.08) x10^3/uL D-Dimer (0.0-0.50) mg/L Sodium (135-145) mmol/L Potassium (3.5-5.1) mmol/L Chloride (98-107) mmol/L Carbon Dioxide (22-30) mmol/L Anion Gap (5-15) MEQ/L BUN (9-20) mg/dL Creatinine (0.66-1.25) mg/dL Estimated GFR ML/MIN Glucose (74-106) mg/dL Calcium (8.4-10.2) mg/dL Magnesium (1.6-2.3) mg/dL Total Bilirubin (0.2-1.3) mg/dL AST (17-59) U/L ALT (0-50) U/L Alkaline Phosphatase (38-126) U/L Troponin I < 0.012 (0.000-0.033) ng/mL NT-Pro-B Natriuret Pep 66.3 (<300) pg/mL Serum Total Protein (6.3-8.2) g/dL Albumin (3.5-5.0) g/dL Urine Opiates Level NEGATIVE (NEGATIVE) Ur Methadone NEGATIVE (NEGATIVE) Urine Barbiturates NEGATIVE (NEGATIVE) Ur Phencyclidine (PCP) NEGATIVE (NEGATIVE) Urine Amphetamine NEGATIVE (NEGATIVE) U Benzodiazepine Level NEGATIVE (NEGATIVE) Urine Cocaine NEGATIVE (NEGATIVE) Urine Marijuana (THC) POSITIVE A (NEGATIVE) 05/19/24 05/19/24 05/19/24 Range/Units 02:35 02:35 02:35 WBC (4.23-9.07) x10^3/uL RBC (4.63-6.08) x10^6/uL Hgb (13.7-17.5) g/dL Hct (40.1-51.0) % MCV (79.0-92.2) fL MCH (25.7-32.2) pg MCHC (32.3-36.5) g/dL RDW (11.6-14.4) % Plt Count (163-337) x10^3/uL MPV (9.4-12.4) fL Gran % (34.0-67.9) % Immature Gran % (Auto) (0.001-0.429) % Nucleat RBC Rel Count (0.00-0.2) % Eos # (Auto) (0.04-0.54) x10^3/uL Immature Gran # (Auto) (0.001-0.031) x10^3u/L Absolute Lymphs (auto) (1.32-3.57) x10^3/uL Absolute Monos (auto) (0.30-0.82) x10^3/uL Absolute Nucleated RBC (0.00-0.012) x10^3u/L Lymphocytes % (21.8-53.1) % Monocytes % (5.3-12.2) % Eosinophils % (0.8-7.0) % Basophils % (0.2-1.2) % Absolute Granulocytes (1.78-5.38) x10^3/uL Basophils # (0.01-0.08) x10^3/uL D-Dimer 1.05 H* (0.0-0.50) mg/L Sodium 139 (135-145) mmol/L Potassium 3.5 (3.5-5.1) mmol/L Chloride 106 (98-107) mmol/L Carbon Dioxide 24 (22-30) mmol/L Anion Gap 12.4 (5-15) MEQ/L BUN 25 H (9-20) mg/dL Creatinine 1.35 H (0.66-1.25) mg/dL Estimated GFR 76.1 ML/MIN Glucose 127 H (74-106) mg/dL Calcium 8.8 (8.4-10.2) mg/dL Magnesium 1.8 (1.6-2.3) mg/dL Total Bilirubin 0.30 (0.2-1.3) mg/dL AST 29 (17-59) U/L ALT 36 (0-50) U/L Alkaline Phosphatase 64 (38-126) U/L Troponin I (0.000-0.033) ng/mL NT-Pro-B Natriuret Pep (<300) pg/mL Serum Total Protein 6.1 L (6.3-8.2) g/dL Albumin 3.6 (3.5-5.0) g/dL Urine Opiates Level (NEGATIVE) Ur Methadone (NEGATIVE) Urine Barbiturates (NEGATIVE) Ur Phencyclidine (PCP) (NEGATIVE) Urine Amphetamine (NEGATIVE) U Benzodiazepine Level (NEGATIVE) Urine Cocaine (NEGATIVE) Urine Marijuana (THC) (NEGATIVE) 05/19/24 Range/Units 02:35 WBC 7.4 (4.23-9.07) x10^3/uL RBC 4.57 L (4.63-6.08) x10^6/uL Hgb 12.7 L (13.7-17.5) g/dL Hct 38.0 L (40.1-51.0) % MCV 83.2 (79.0-92.2) fL MCH 27.8 (25.7-32.2) pg MCHC 33.4 (32.3-36.5) g/dL RDW 12.9 (11.6-14.4) % Plt Count 284 (163-337) x10^3/uL MPV 8.9 L (9.4-12.4) fL Gran % 50.8 (34.0-67.9) % Immature Gran % (Auto) 0.4 (0.001-0.429) % Nucleat RBC Rel Count 0.0 (0.00-0.2) % Eos # (Auto) 0.14 (0.04-0.54) x10^3/uL Immature Gran # (Auto) 0.03 (0.001-0.031) x10^3u/L Absolute Lymphs (auto) 2.92 (1.32-3.57) x10^3/uL Absolute Monos (auto) 0.50 (0.30-0.82) x10^3/uL Absolute Nucleated RBC 0.00 (0.00-0.012) x10^3u/L Lymphocytes % 39.7 (21.8-53.1) % Monocytes % 6.8 (5.3-12.2) % Eosinophils % 1.9 (0.8-7.0) % Basophils % 0.4 (0.2-1.2) % Absolute Granulocytes 3.74 (1.78-5.38) x10^3/uL Basophils # 0.03 (0.01-0.08) x10^3/uL D-Dimer (0.0-0.50) mg/L Sodium (135-145) mmol/L Potassium (3.5-5.1) mmol/L Chloride (98-107) mmol/L Carbon Dioxide (22-30) mmol/L Anion Gap (5-15) MEQ/L BUN (9-20) mg/dL Creatinine (0.66-1.25) mg/dL Estimated GFR ML/MIN Glucose (74-106) mg/dL Calcium (8.4-10.2) mg/dL Magnesium (1.6-2.3) mg/dL Total Bilirubin (0.2-1.3) mg/dL AST (17-59) U/L ALT (0-50) U/L Alkaline Phosphatase (38-126) U/L Troponin I (0.000-0.033) ng/mL NT-Pro-B Natriuret Pep (<300) pg/mL Serum Total Protein (6.3-8.2) g/dL Albumin (3.5-5.0) g/dL Urine Opiates Level (NEGATIVE) Ur Methadone (NEGATIVE) Urine Barbiturates (NEGATIVE) Ur Phencyclidine (PCP) (NEGATIVE) Urine Amphetamine (NEGATIVE) U Benzodiazepine Level (NEGATIVE) Urine Cocaine (NEGATIVE) Urine Marijuana (THC) (NEGATIVE) - Progress Progress: improved, re-examined Air Movement: good Progress Note: 05/19/24 05:27 23 years old is evaluated in the ER for palpitations. EKG is sinus rhythm with no acute ST elevation. Negative troponin. Normal white count, chemistries with mildly elevated creatinine and BUN, patient has chronic elevation in creatinine. Given fluid bolus. D-dimers are elevated, chest x-ray negative for any acute cardiopulmonary findings reviewed by me, official report is pending. CTA chest is negative for pulmonary embolism, no acute findings. Patient is feeling better on reevaluation. I believe part of patient's symptoms secondary to anxiety/dehydration as he did report later had sudden loose stools as well. Recommended increase hydration and outpatient follow-up. Discussed signs symptoms of worsening needing return to ER which he seems understanding. Stable for discharge. Blood Culture(s) Obtained: No Antibiotics given: No Counseled pt/family regarding: lab results, diagnosis, need for follow-up, rad results - Departure Departure Disposition: Home Clinical Impression: Palpitations, Anxiety, Dehydration Condition: Stable Critical Care Time: No Referrals: ALMITA MALHOTRA NP [Primary Care Provider] - Follow up with PCP 1 day ALEXEY GARCIA [CONSULTING PHYSICIAN] - Follow up/PCP as directed (Call for appointment) Instructions: Palpitations ED Additional Instructions: Follow-up with primary care and cardiology for reevaluation. Return to ER for any worsening.
[2024-05-19 02:31] LABS: Absolute Neutrophil Ct (ANC) 3.74 x10^3/uL (1.78-5.38); BASOPHIL % 0.4 % (0.2-1.2); Basophil (Absolute #) 0.03 x10^3/uL (0.01-0.08); Eosinophil % 1.9 % (0.8-7.0); Eosinophil (Absolute #) 0.14 x10^3/uL (0.04-0.54); Hemoglobin 12.7 g/dL (13.7-17.5); IMMATURE GRAN # 0.03 x10^3u/L (0.001-0.031); IMMATURE GRAN % 0.4 % (0.001-0.429); Lymphocyte (Absolute #) 2.92 x10^3/uL (1.32-3.57); Lymphocytes % 39.7 % (21.8-53.1); Mean Cell Volume 83.2 fL (79.0-92.2); Mean Corpuscular Hemoglobin 27.8 pg (25.7-32.2); Mean Corpuscular Hgb Concent. 33.4 g/dL (32.3-36.5); Mean Platelet Volume 8.9 fL (9.4-12.4); Monocytes % 6.8 % (5.3-12.2); Neutrophil % 50.8 % (34.0-67.9); Platelet Count 284 x10^3/uL (163-337); Red Blood Count 4.57 x10^6/uL (4.63-6.08); Red Cell Distribution Width 12.9 % (11.6-14.4); White Blood Count 7.4 x10^3/uL (4.23-9.07)
[2024-05-19] MEDS ORDERED: Sodium Chloride 0.9% 1000 ML 1,000 ML ONE (02:43)
[2024-05-19] MEDS: Sodium Chloride 0.9% 1000 ML 1,000 ML IV STA (02:45)
[2024-05-19 02:55] LABS: ALBUMIN 3.6 g/dL (3.5-5.0); ANION GAP 12.4 MEQ/L (5-15); BILIRUBIN,TOTAL 0.3 mg/dL (0.2-1.3); Calcium 8.8 mg/dL (8.4-10.2); Creatinine 1 1.35 mg/dL (0.66-1.25); EST GLOMERULAR FILTRATION RATE 76.1 ML/MIN; Potassium 3.5 mmol/L (3.5-5.1); Total Protein 6.1 g/dL (6.3-8.2)
[2024-05-19 03:14] LABS: Amphetamine,Urine NEGATIVE (NEGATIVE); Barbiturate,Urine NEGATIVE (NEGATIVE); Benzodiazepine,Urine NEGATIVE (NEGATIVE); Cocaine,Urine NEGATIVE (NEGATIVE); Methadone,Urine NEGATIVE (NEGATIVE); Opiate,Urine NEGATIVE (NEGATIVE); PCP,Urine NEGATIVE (NEGATIVE); THC,Urine POSITIVE (NEGATIVE)
--- NOTE | 2024-05-19 05:00 | XRAY ---
CLINICAL HISTORY: palpitations, r/o pe COMPARISON: 01/14/2024. TECHNIQUE: Spiral axial continuous cuts were taken through the chest with multiplanar reformatting and with intravenous administration of contrast material (Pulmonary embolism protocol). CT scan performed according to ALARA principles (Automated exposure control used during exam). One of the following dose reduction techniques was utilized for this exam.Automated exposure control, adjustment of the mA and/or kV according to patient size, and use of iterative reconstruction. FINDINGS: Normal course and caliber of the main pulmonary trunk, right and left pulmonary arteries with adequate opacification. No evidence of intraluminal filling defects impressive of pulmonary embolism, no evidence of mural calcification or aneurismal dilatation. Both lungs are clear with no parenchymal or interstitial lesion. No evidence of nodules, masses, or consolidation. The vascular pattern appears normal with no evidence of bronchovascular distortion. No significant hilar or mediastinal lymph dax enlargement. Normal cardiac size with no pericardial effusion. The visualized pleural sacs, chest wall, and axillary spaces display normal appearance. Bone window settings showed no evidence of destructive bony lesions. Scanned upper abdominal cuts are unremarkable. IMPRESSION: 1. Normal CT angiography of the pulmonary artery and its branches with no evidence of pulmonary embolism. 2. Normal contrast-enhanced CT scan of the chest. 3. No interval changes. Electronically Signed by: Tyrone Ness MD. (05/19/2024 04:55:41 EDT)
[2024-05-19 05:05] VITALS: BP 128/85; PULSE 82; RESP 17; O2SAT 97
--- NOTE | 2024-05-19 08:57 | XRAY ---
Indication: Palpitations. Comparison: May 05, 2024 Portable chest less inflated and remains clear. Heart not enlarged. Bony thorax intact. No new/acute findings.
== END 2024-05-19 05:36 | disposition home or self-care (01) ==
LOC: ED 01:52
DX: R00.2 Palpitations (principal); F41.9 Anxiety disorder, unspecified; E86.0 Dehydration; R07.9 Chest pain, unspecified; I10 Essential (primary) hypertension; Z79.899 Other long term (current) drug therapy
CPT/HCPCS: 36000; 36415; 71045; 71260; 80053; 80307; 83735; 83880; 84484; 85025; 85379; 93005; 93041; 96360; 99284

== ENCOUNTER 2024-06-20 01:31 | Emergency (ER) | payer MEDICAID, OTHER ==
[2024-06-20 01:45] VITALS: TEMP 97.8
--- NOTE | 2024-06-20 02:08 | ERPHSYRPT ---
- History of Present Illness Time Seen by Provider: 06/20/24 01:55 Historian: patient Exam Limitations: no limitations Patient Subjective Stated Complaint: abdominal pain, N/V/D Triage Nursing Assessment: Pt brought self to ED with c/o of abdominal pain, N/V/D, rates pain 6/10, vitals wnl, skin w/n/d, gait steady, last BM 06/20/2024, bowel sounds present in all 4 quads, abdomen symmetric, pt states abdomen is a littlew tender, pt doesn't appear to be in any distress at this time Physician History: For the past 3 days pt has had dull LUQ abdominal pain 6/10; today vomiting x1 and diarrhea. Pt denies shortness of air, headache, sore throat. Allergies/Adverse Reactions: Penicillins Allergy (Unknown, Verified 06/20/24 01:45) Home Medications: hydrOXYzine HCL [Hydroxyzine HCl] 50 mg PO DAILY PRN PRN 11/07/23 [History] Gabapentin [Neurontin ] 300 mg PO TID 12/18/23 [History] Sucralfate [Carafate] 1 gm PO QID 01/14/24 [History] Trazodone HCl 100 mg PO HS 01/14/24 [History] Omeprazole 20 mg PO DAILY 02/04/24 [History] Desvenlafaxine Succinate [Desvenlafaxine Succinate ER] 50 mg PO DAILY 05/05/24 [History] Clonidine HCl Tts-2 Patch [Catapres TTS-2 PATCH] 0.2 mg TOP Q7D 05/19/24 [History] Divalproex Sodium ER 250 mg [Depakote EXTENDED RELEASE 250 MG] 500 mg PO DAILY 05/19/24 [History] Famotidine [Pepcid] 40 mg PO DAILY 05/19/24 [History] Metoprolol Tartrate 25 mg [Lopressor 25MG Tab] 25 mg PO DAILY 05/19/24 [History] Quetiapine Fumarate [Seroquel] 50 mg PO HS 05/19/24 [History] lisinopriL [Zestril] 40 mg PO DAILY 05/19/24 [History] Hx Tetanus, Diphtheria Vaccination/Date Given: Yes Hx Influenza Vaccination/Date Given: No Hx Pneumococcal Vaccination/Date Given: No Travel Risk - International Travel Have you traveled outside of the country in past 3 weeks: No - Emerging Infectious Disease Are you exhibiting symptoms associated with any current EIDs: No Symptoms: Other (Please Comment) Comment: dizziness - Review of Systems Ears, Nose, & Throat: No Throat Pain Respiratory: No Dyspnea Abdominal/Gastrointestinal: Abdominal Pain, Vomiting, Diarrhea Neurological: No Headache - Past Medical History Pertinent Past Medical History: Yes Neurological History: No Pertinent History, Epilepsy ENT History: No Pertinent History Cardiac History: No Pertinent History Respiratory History: Pneumonia Endocrine Medical History: No Pertinent History Musculoskeletal History: No Pertinent History GI Medical History: Hernia History: No Pertinent History Psycho-Social History: Anxiety, Bipolar, Depression, Other Male Reproductive Disorders: No Pertinent History Other Medical History: Autism, reactive attachment disorder - Past Surgical History Past Surgical History: Yes Neuro Surgical History: No Pertinent History Cardiac: No Pertinent History Respiratory: No Pertinent History Gastrointestinal: Hernia Repair Genitourinary: No Pertinent History Musculoskeletal: No Pertinent History Male Surgical History: No Pertinent History Other Surgical History: Hernia repair x2. egd and colonoscopy - Social History Smoking Status: Never smoker Exposure to second hand smoke: No Drug Use: marijuana Patient Lives Alone: No - Social Determinants of Health Will the patient participate in the screening: Yes Do you worry about a steady place to live?: Yes Do you have any problems with any of the following?: No known problems In the past 12 months,have you had to go without utilities?: No Transportation Issues: No Has anyone in your support network made you feel unsafe?: No Have you or anyone in your house had to go without enough: No - Nursing Vital Signs Nursing Vital Signs: Initial Vital Signs Temperature 97.8 F 06/20/24 01:34 Pulse Rate 99 H 06/20/24 01:34 Blood Pressure 129/98 06/20/24 01:34 O2 Sat by Pulse Oximetry 98 06/20/24 01:34 Pain Scale Pain Intensity 5 - Physical Exam General Appearance: alert Ears, Nose, Throat Exam: pharynx normal, moist mucous membranes Neck Exam: normal inspection Respiratory Exam: lungs clear Cardiovascular Exam: normal heart sounds Gastrointestinal/Abdomen Exam: normal bowel sounds Back Exam: normal inspection Extremity Exam: No pedal edema Neurologic Exam: alert, cooperative Skin Exam: warm, dry SpO2 Interpretation: normal SpO2: 98 O2 Delivery: Room Air - Course Nursing assessment & vital signs reviewed: Yes - Radiology Exams Chest X-ray Interpretation: Interpreted by me, No Pneumonia - CT Exams Abdomen/Pelvis CT Interpretation: Tele-radiologist Report (No acute abnormality detected. See rest of report.) Ordered Tests: Active Orders 24 hr Category Date Time Status EKG-ER Only STAT Care 06/20/24 02:04 Active ABDOMEN AND PELVIS W/0 CONTRAS [CT] Stat Exams 06/20/24 02:05 Completed CHEST 2 VIEWS (PA AND LAT) Stat Exams 06/20/24 03:05 Taken AMYLASE Stat Lab 06/20/24 02:22 Completed CBC W DIFF Stat Lab 06/20/24 02:22 Completed CMP Stat Lab 06/20/24 02:22 Completed CULTURE,URINE Stat Lab 06/20/24 02:08 Received ETHYL ALCOHOL Stat Lab 06/20/24 02:22 Completed LIPASE Stat Lab 06/20/24 02:22 Completed TROPONIN Q4H Lab 06/20/24 02:22 Completed TROPONIN Q4H Lab 06/20/24 06:15 Ordered TROPONIN Q4H Lab 06/20/24 10:15 Ordered UA W/RFX UR CULTURE Stat Lab 06/20/24 02:08 Completed Urine Triage Profile Stat Lab 06/20/24 02:08 Completed Medication Summary Discontinued Medications Generic Name Dose Route Start Last Admin Trade Name Sherif PRN Reason Stop Dose Admin Acetaminophen 650 mg 06/20/24 02:04 06/20/24 02:17 Acetaminophen 325 Mg Tablet PO 06/20/24 02:05 650 mg STAT ONE Administration Acetaminophen Confirm 06/20/24 02:16 Acetaminophen 325 Mg Tablet Administered 06/20/24 02:17 Dose 650 mg .ROUTE .STK-MED ONE Ondansetron HCl 4 mg 06/20/24 02:04 06/20/24 02:17 Zofran 4 Mg/Udtablet Orally Disintegrating PO 06/20/24 02:05 4 mg STAT ONE Administration Ondansetron HCl Confirm 06/20/24 02:16 Zofran 4 Mg/Udtablet Orally Disintegrating Administered 06/20/24 02:17 Dose 4 mg .ROUTE .STK-MED ONE Lab/Rad Data: Laboratory Result Diagrams 06/20/24 02:22 06/20/24 02:22 Laboratory Results 06/20/24 06/20/2424 Range/Units 03:19 03:19 02:22 WBC (4.23-9.07) x10^3/uL RBC (4.63-6.08) x10^6/uL Hgb (13.7-17.5) g/dL Hct (40.1-51.0) % MCV (79.0-92.2) fL MCH (25.7-32.2) pg MCHC (32.3-36.5) g/dL RDW (11.6-14.4) % Plt Count (163-337) x10^3/uL MPV (9.4-12.4) fL Gran % (34.0-67.9) % Immature Gran % (Auto) (0.001-0.429) % Nucleat RBC Rel Count (0.00-0.2) % Eos # (Auto) (0.04-0.54) x10^3/uL Immature Gran # (Auto) (0.001-0.031) x10^3u/L Absolute Lymphs (auto) (1.32-3.57) x10^3/uL Absolute Monos (auto) (0.30-0.82) x10^3/uL Absolute Nucleated RBC (0.00-0.012) x10^3u/L Lymphocytes % (21.8-53.1) % Monocytes % (5.3-12.2) % Eosinophils % (0.8-7.0) % Basophils % (0.2-1.2) % Absolute Granulocytes (1.78-5.38) x10^3/uL Basophils # (0.01-0.08) x10^3/uL Sodium (135-145) mmol/L Potassium (3.5-5.1) mmol/L Chloride (98-107) mmol/L Carbon Dioxide (22-30) mmol/L Anion Gap (5-15) MEQ/L BUN (9-20) mg/dL Creatinine (0.66-1.25) mg/dL Estimated GFR ML/MIN Glucose (74-106) mg/dL Calcium (8.4-10.2) mg/dL Total Bilirubin (0.2-1.3) mg/dL AST (17-59) U/L ALT (0-50) U/L Alkaline Phosphatase (38-126) U/L Troponin I < 0.012 (0.000-0.033) ng/mL Serum Total Protein (6.3-8.2) g/dL Albumin (3.5-5.0) g/dL Amylase (30-110) U/L Lipase (23-300) U/L Urine Color (Yellow) Urine Appearance (Clear) Urine pH (4.6-8.0) Ur Specific [place] (1.005-1.030) Urine Protein (Negative) Urine Glucose (UA) (Negative) mg/dL Urine Ketones (Negative) Urine Blood (Negative) Urine Nitrite (Negative) Urine Bilirubin (Negative) Urine Urobilinogen (0.2) mg/dL Ur Leukocyte Esterase (Negative) U Hyaline Cast (Auto) (0-2) /LPF Urine Microscopic RBC (0-5) /HPF Urine Microscopic WBC (0-5) /HPF Ur Epithelial Cells (None Seen) /HPF Urine Bacteria (None Seen) /HPF Urine Culture Reflexed (NO) Urine Opiates Level (NEGATIVE) Ur Methadone (NEGATIVE) Urine Barbiturates (NEGATIVE) Ur Phencyclidine (PCP) (NEGATIVE) Urine Amphetamine (NEGATIVE) U Benzodiazepine Level (NEGATIVE) Urine Cocaine (NEGATIVE) Urine Marijuana (THC) (NEGATIVE) Ethyl Alcohol (0-10) mg/dL Influenza Type A Ag NEGATIVE (NEGATIVE) Influenza Type B Ag NEGATIVE (NEGATIVE) RSV (PCR) NEGATIVE (NEGATIVE) SARS-CoV-2 (PCR) NEGATIVE (NEGATIVE) Group A Strep Antibody NOT DETECTED (NEGATIVE) 06/20/24 06/20/24 06/20/24 Range/Units 02:22 02:22 02:08 WBC 13.2 H (4.23-9.07) x10^3/uL RBC 5.26 (4.63-6.08) x10^6/uL Hgb 15.1 (13.7-17.5) g/dL Hct 44.9 (40.1-51.0) % MCV 85.4 (79.0-92.2) fL MCH 28.7 (25.7-32.2) pg MCHC 33.6 (32.3-36.5) g/dL RDW 13.2 (11.6-14.4) % Plt Count 324 (163-337) x10^3/uL MPV 9.1 L (9.4-12.4) fL Gran % 64.6 (34.0-67.9) % Immature Gran % (Auto) 0.3 (0.001-0.429) % Nucleat RBC Rel Count 0.0 (0.00-0.2) % Eos # (Auto) 0.30 (0.04-0.54) x10^3/uL Immature Gran # (Auto) 0.04 H (0.001-0.031) x10^3u/L Absolute Lymphs (auto) 3.00 (1.32-3.57) x10^3/uL Absolute Monos (auto) 1.26 H (0.30-0.82) x10^3/uL Absolute Nucleated RBC 0.00 (0.00-0.012) x10^3u/L Lymphocytes % 22.8 (21.8-53.1) % Monocytes % 9.6 (5.3-12.2) % Eosinophils % 2.3 (0.8-7.0) % Basophils % 0.4 (0.2-1.2) % Absolute Granulocytes 8.50 H (1.78-5.38) x10^3/uL Basophils # 0.05 (0.01-0.08) x10^3/uL Sodium 136 (135-145) mmol/L Potassium 4.0 (3.5-5.1) mmol/L Chloride 100 (98-107) mmol/L Carbon Dioxide 28 (22-30) mmol/L Anion Gap 12.2 (5-15) MEQ/L BUN 29 H (9-20) mg/dL Creatinine 1.63 H (0.66-1.25) mg/dL Estimated GFR 60.3 ML/MIN Glucose 100 (74-106) mg/dL Calcium 9.4 (8.4-10.2) mg/dL Total Bilirubin 0.30 (0.2-1.3) mg/dL AST 30 (17-59) U/L ALT 38 (0-50) U/L Alkaline Phosphatase 62 (38-126) U/L Troponin I (0.000-0.033) ng/mL Serum Total Protein 6.1 L (6.3-8.2) g/dL Albumin 3.9 (3.5-5.0) g/dL Amylase 88 (30-110) U/L Lipase 135 (23-300) U/L Urine Color (Yellow) Urine Appearance (Clear) Urine pH (4.6-8.0) Ur Specific [place] (1.005-1.030) Urine Protein (Negative) Urine Glucose (UA) (Negative) mg/dL Urine Ketones (Negative) Urine Blood (Negative) Urine Nitrite (Negative) Urine Bilirubin (Negative) Urine Urobilinogen (0.2) mg/dL Ur Leukocyte Esterase (Negative) U Hyaline Cast (Auto) (0-2) /LPF Urine Microscopic RBC (0-5) /HPF Urine Microscopic WBC (0-5) /HPF Ur Epithelial Cells (None Seen) /HPF Urine Bacteria (None Seen) /HPF Urine Culture Reflexed (NO) Urine Opiates Level NEGATIVE (NEGATIVE) Ur Methadone NEGATIVE (NEGATIVE) Urine Barbiturates NEGATIVE (NEGATIVE) Ur Phencyclidine (PCP) NEGATIVE (NEGATIVE) Urine Amphetamine NEGATIVE (NEGATIVE) U Benzodiazepine Level NEGATIVE (NEGATIVE) Urine Cocaine NEGATIVE (NEGATIVE) Urine Marijuana (THC) POSITIVE A (NEGATIVE) Ethyl Alcohol < 10 (0-10) mg/dL Influenza Type A Ag (NEGATIVE) Influenza Type B Ag (NEGATIVE) RSV (PCR) (NEGATIVE) SARS-CoV-2 (PCR) (NEGATIVE) Group A Strep Antibody (NEGATIVE) 06/20/24 Range/Units 02:08 WBC (4.23-9.07) x10^3/uL RBC (4.63-6.08) x10^6/uL Hgb (13.7-17.5) g/dL Hct (40.1-51.0) % MCV (79.0-92.2) fL MCH (25.7-32.2) pg MCHC (32.3-36.5) g/dL RDW (11.6-14.4) % Plt Count (163-337) x10^3/uL MPV (9.4-12.4) fL Gran % (34.0-67.9) % Immature Gran % (Auto) (0.001-0.429) % Nucleat RBC Rel Count (0.00-0.2) % Eos # (Auto) (0.04-0.54) x10^3/uL Immature Gran # (Auto) (0.001-0.031) x10^3u/L Absolute Lymphs (auto) (1.32-3.57) x10^3/uL Absolute Monos (auto) (0.30-0.82) x10^3/uL Absolute Nucleated RBC (0.00-0.012) x10^3u/L Lymphocytes % (21.8-53.1) % Monocytes % (5.3-12.2) % Eosinophils % (0.8-7.0) % Basophils % (0.2-1.2) % Absolute Granulocytes (1.78-5.38) x10^3/uL Basophils # (0.01-0.08) x10^3/uL Sodium (135-145) mmol/L Potassium (3.5-5.1) mmol/L Chloride (98-107) mmol/L Carbon Dioxide (22-30) mmol/L Anion Gap (5-15) MEQ/L BUN (9-20) mg/dL Creatinine (0.66-1.25) mg/dL Estimated GFR ML/MIN Glucose (74-106) mg/dL Calcium (8.4-10.2) mg/dL Total Bilirubin (0.2-1.3) mg/dL AST (17-59) U/L ALT (0-50) U/L Alkaline Phosphatase (38-126) U/L Troponin I (0.000-0.033) ng/mL Serum Total Protein (6.3-8.2) g/dL Albumin (3.5-5.0) g/dL Amylase (30-110) U/L Lipase (23-300) U/L Urine Color Yellow (Yellow) Urine Appearance Clear (Clear) Urine pH 6.0 (4.6-8.0) Ur Specific [place] 1.025 (1.005-1.030) Urine Protein 100 A (Negative) Urine Glucose (UA) Negative (Negative) mg/dL Urine Ketones Trace A (Negative) Urine Blood Large A (Negative) Urine Nitrite Negative (Negative) Urine Bilirubin Negative (Negative) Urine Urobilinogen 1.0 A (0.2) mg/dL Ur Leukocyte Esterase Negative (Negative) U Hyaline Cast (Auto) NONE SEEN (0-2) /LPF Urine Microscopic RBC 51-100 A (0-5) /HPF Urine Microscopic WBC 3-5 (0-5) /HPF Ur Epithelial Cells None Seen (None Seen) /HPF Urine Bacteria None Seen (None Seen) /HPF Urine Culture Reflexed YES (NO) Urine Opiates Level (NEGATIVE) Ur Methadone (NEGATIVE) Urine Barbiturates (NEGATIVE) Ur Phencyclidine (PCP) (NEGATIVE) Urine Amphetamine (NEGATIVE) U Benzodiazepine Level (NEGATIVE) Urine Cocaine (NEGATIVE) Urine Marijuana (THC) (NEGATIVE) Ethyl Alcohol (0-10) mg/dL Influenza Type A Ag (NEGATIVE) Influenza Type B Ag (NEGATIVE) RSV (PCR) (NEGATIVE) SARS-CoV-2 (PCR) (NEGATIVE) Group A Strep Antibody (NEGATIVE) - Progress Progress: unchanged Counseled pt/family regarding: lab results, diagnosis, need for follow-up, rad results Medical Desision Making - Diagnostic Testing Diagnostic test were ordered, analyzed, and reviewed by me: Yes Radiological Interpretation: Teleradiologist Report - Departure Departure Disposition: Home Clinical Impression: Abdominal pain, Vomiting, Diarrhea Condition: Stable Critical Care Time: No Referrals: ALMITA MALHOTRA GEOMAGNETICIAN [Primary Care Provider] - Follow up/PCP as directed Instructions: Abdominal pain, Nausea and Vomiting, Adult ED, Diarrhea, Adult ED Additional Instructions: Follow up with private doctor today. Start clear liquids for the next 12 hours followed by a soft bland diet. No milk or juice for the next 2 days. Prescriptions: Ondansetron ODT 4 MG [Zofran Odt 4 mg] 4 mg PO Q6H PRN PRN #10 tablet PRN Reason: Nausea
[2024-06-20] MEDS ORDERED: TYLENOL 325 MG ONE (02:16)
[2024-06-20] MEDS ORDERED: ZOFRAN ODT 4 MG ONE (02:16)
[2024-06-20] MEDS: ZOFRAN ODT 4 MG PO ONE (02:17)
[2024-06-20] MEDS: TYLENOL 325 MG PO ONE (02:17)
[2024-06-20 02:18] LABS: Appearance Clear (Clear); Bacteria None Seen /HPF (None Seen); Bilirubin Negative (Negative); Blood Large (Negative); Epithelial Cells None Seen /HPF (None Seen); Glucose, Urine Negative (Negative); Hyaline Casts NONE SEEN /LPF (0-2); Ketones Trace (Negative); Leukocyte Esterase Negative (Negative); Nitrite Negative (Negative); Protein,Urine Dip 100 (Negative); RBC 51-100 /HPF (0-5); Specific Gravity 1.025 (1.005-1.030)
[2024-06-20 02:25] LABS: ADD URINE CULTURE? YES (NO)
[2024-06-20 02:26] LABS: BASOPHIL % 0.4 % (0.2-1.2); Basophil (Absolute #) 0.05 x10^3/uL (0.01-0.08); Eosinophil % 2.3 % (0.8-7.0); Hematocrit 44.9 % (40.1-51.0); Hemoglobin 15.1 g/dL (13.7-17.5); IMMATURE GRAN # 0.04 x10^3u/L (0.001-0.031); IMMATURE GRAN % 0.3 % (0.001-0.429); Lymphocytes % 22.8 % (21.8-53.1); Mean Cell Volume 85.4 fL (79.0-92.2); Mean Corpuscular Hemoglobin 28.7 pg (25.7-32.2); Mean Corpuscular Hgb Concent. 33.6 g/dL (32.3-36.5); Mean Platelet Volume 9.1 fL (9.4-12.4); Monocyte (Absolute #) 1.26 x10^3/uL (0.30-0.82); Monocytes % 9.6 % (5.3-12.2); Neutrophil % 64.6 % (34.0-67.9); Platelet Count 324 x10^3/uL (163-337); Red Blood Count 5.26 x10^6/uL (4.63-6.08); Red Cell Distribution Width 13.2 % (11.6-14.4); White Blood Count 13.2 x10^3/uL (4.23-9.07)
[2024-06-20 02:29] LABS: Amphetamine,Urine NEGATIVE (NEGATIVE); Barbiturate,Urine NEGATIVE (NEGATIVE); Benzodiazepine,Urine NEGATIVE (NEGATIVE); Cocaine,Urine NEGATIVE (NEGATIVE); Methadone,Urine NEGATIVE (NEGATIVE); Opiate,Urine NEGATIVE (NEGATIVE); PCP,Urine NEGATIVE (NEGATIVE); THC,Urine POSITIVE (NEGATIVE)
[2024-06-20 02:36] VITALS: RESP 16
[2024-06-20 02:46] LABS: ALBUMIN 3.9 g/dL (3.5-5.0); ALKALINE PHOSPHATASE 62 U/L (38-126); AMYLASE 88 U/L (30-110); ANION GAP 12.2 MEQ/L (5-15); BLOOD UREA NITROGEN 29 mg/dL (9-20); CHLORIDE 100 mmol/L (98-107); Calcium 9.4 mg/dL (8.4-10.2); Carbon Dioxide 28 mmol/L (22-30); Creatinine 1 1.63 mg/dL (0.66-1.25); EST GLOMERULAR FILTRATION RATE 60.3 ML/MIN; ETHYL ALCOHOL < 10 mg/dL (0-10); Glucose 100 mg/dL (74-106); LIPASE 135 U/L (23-300); SGOT/AST 30 U/L (17-59); SGPT/ALT 38 U/L (0-50); SODIUM 136 mmol/L (135-145); Total Protein 6.1 g/dL (6.3-8.2)
--- NOTE | 2024-06-20 03:30 | XRAY ---
CLINICAL HISTORY: pain COMPARISON: CT dated: 18/12/23. TECHNIQUE: CT of the abdomen and pelvis was performed with axial images as well as sagittal and coronal reconstruction images without intravenous contrast. FINDINGS: Scanned lung bases are unremarkable. The liver is normal in size with normal attenuation. No definite focal lesions by non-contrast criteria. No intrahepatic biliary radicle dilations. Unremarkable appearing gallbladder with no stones wall thickening or pericholecystic inflammatory changes or fluid. Unremarkable appearing pancreas. No pancreatic mass or ductal dilatation is seen. The spleen is of average size, a possible small hypodense focal lesion is appreciated measuring about 9 x 9 mm. The adrenal glands are normal. The kidneys appear unremarkable with no calculi, cysts masses or hydronephrosis. Average caliber of both ureters. The urinary bladder is partially filled, no calculi are noted. The prostate is of average size. Unremarkable appearance of the stomach. The large and small bowel loops are of average caliber with no evidence of obstruction. A normal appendix is seen. No suspiciously enlarged mesenteric or retroperitoneal lymph nodes. No free fluid. IMPRESSION: 1. No acute abnormality detected. 2. Barely appreciable possible small hypodense splenic focal lesion (which was seen in the previous study, could represent a benign lesion), for USG correlation. 3. No significant interval changes. Electronically Signed by: Ayan Oconnell MD. (06/20/2024 03:25:31 EDT)
[2024-06-20 04:04] LABS: INFLUENZA A NEGATIVE (NEGATIVE); INFLUENZA B NEGATIVE (NEGATIVE); RESPIRATORY SYNCTIAL VIRUS NEGATIVE (NEGATIVE); SARS-CoV-2 Xpert Express NEGATIVE (NEGATIVE)
[2024-06-20 04:08] VITALS: BP 115/79; PULSE 70
[2024-06-20 04:18] VITALS: O2SAT 98
--- NOTE | 2024-06-20 06:25 | XRAY ---
Indication: Leukocytosis. Comparison: May 19, 2024 PA/lateral chest again demonstrates normal heart, lungs, and bony thorax.
== END 2024-06-20 04:37 | disposition home or self-care (01) ==
LOC: ED 01:31
DX: R10.12 Left upper quadrant pain (principal); R11.2 Nausea with vomiting, unspecified; R19.7 Diarrhea, unspecified; Z79.899 Other long term (current) drug therapy; Z59.819 Housing instability, housed unspecified
CPT/HCPCS: 0241U; 71046; 74176; 80053; 80307; 81001; 82077; 82150; 83690; 84484; 85025; 87086; 87651; 93005; 99284; 36415; Q0162; A9270-GY

== ENCOUNTER 2024-08-07 22:42 | Emergency (ER) | payer MEDICAID | END 2024-08-07 23:56 | disposition left against medical advice (07) | LOC: ED 22:42 | DX: Z53.21 Procedure and treatment not carried out due to patient leaving prior to being seen by health care provider (principal) ==

== ENCOUNTER 2024-08-22 02:41 | Emergency (ER) | payer MEDICAID ==
[2024-08-22 03:14] VITALS: TEMP 97.4
--- NOTE | 2024-08-22 03:35 | ERPHSYRPT ---
<OSMEL HARRINGTON KaitlynLayla - Last Filed: 08/22/24 07:38> - History of Present Illness Historian: patient Exam Limitations: no limitations Patient Subjective Stated Complaint: abd pain Triage Nursing Assessment: Pt drove himself to the ER. Pt c/o abd pain which occured after finishing his last drink. Pt informed me that he drank 5 large alcoholic drinks tonight (1- 4 Morgan and 4- teas). Abd lg, soft with active bs x4 quad, nontender on palpation. Pt has a hx of alcoholism. Pt is non compliant with his home medications. Pt is requesting a GI cocktail. Timing/Duration: today Activities at Onset: rest Quality: burning, stabbing Abdominal Pain Onset Location: epigastric Pain Radiation: no radiation Severity of Pain-Max: severe Severity of Pain-Current: moderate Modifying Factors: Improves With: nothing. Worsens With: eating, palpation Associated Symptoms: heartburn, loss of appetite, nausea, No chest pain, No feve r/chills, No shortness of breath, No vomiting Previous symptoms: same symptoms as today Hx Tetanus, Diphtheria Vaccination/Date Given: Yes Hx Influenza Vaccination/Date Given: No Hx Pneumococcal Vaccination/Date Given: No <AGUSTÍN OSCAR - Last Filed: 08/23/24 11:07> - History of Present Illness Time Seen by Provider: 08/22/24 03:34 Physician History: The patient presents with persistent abdominal pain, reminiscent of previous episodes. They have a history of gastroesophageal reflux disease (GERD) and ga stritis, previously diagnosed via EGD. The patient has been on a regimen of Carafate, Protonix, and Reglan for management of these conditions. However, they have been without Carafate for several weeks. The pain is localized in the upper abdomen, between the cardiac and gastric regions. The patient has noticed a correlation between the exacerbation of their symptoms and the consumption of alcohol or large meals. They express a desire for blood work to ensure overall health, despite uncertainty about what specific parameters to assess. (AGUSTÍN OSCAR) Allergies/Adverse Reactions: Penicillins Allergy (Unknown, Verified 08/22/24 03:24) Home Medications: hydrOXYzine HCL [Hydroxyzine HCl] 50 mg PO DAILY PRN PRN 11/07/23 [History] Sucralfate [Carafate] 1 gm PO QID 01/14/24 [History] Trazodone HCl 100 mg PO HS 01/14/24 [History] Desvenlafaxine Succinate [Desvenlafaxine Succinate ER] 50 mg PO DAILY 05/05/24 [History] Clonidine HCl Tts-2 Patch [Catapres TTS-2 PATCH] 0.2 mg TOP Q7D 05/19/24 [History] Divalproex Sodium ER 250 mg [Depakote EXTENDED RELEASE 250 MG] 500 mg PO DAILY 05/19/24 [History] Metoprolol Tartrate 25 mg [Lopressor 25MG Tab] 25 mg PO DAILY 05/19/24 [History] lisinopriL [Zestril] 40 mg PO DAILY 05/19/24 [History] Travel Risk - International Travel Have you traveled outside of the country in past 3 weeks: No - Emerging Infectious Disease Are you exhibiting symptoms associated with any current EIDs: Yes Symptoms: Abdominal Pain, Vomitting Comment: dizziness <AGUSTÍN OSCAR - Last Filed: 08/23/24 11:07> - Review of Systems Constitutional: No Symptoms Respiratory: No Symptoms Cardiac: No Chest Pain Abdominal/Gastrointestinal: Abdominal Pain (epigastric), Nausea, Appetite Changes, No Vomiting, No Diarrhea, No Dysphagia Genitourinary Symptoms: No Symptoms Skin: No Symptoms Neurological: No Symptoms Psychological: Alcohol Abuse <AGUSTÍN OSCAR - Last Filed: 08/23/24 11:07> - Past Medical History Pertinent Past Medical History: Yes Neurological History: No Pertinent History, Epilepsy ENT History: No Pertinent History Cardiac History: No Pertinent History Respiratory History: Pneumonia Endocrine Medical History: No Pertinent History Musculoskeletal History: No Pertinent History GI Medical History: Hernia History: No Pertinent History Psycho-Social History: Anxiety, Bipolar, Depression, Other Male Reproductive Disorders: No Pertinent History Other Medical History: Autism, reactive attachment disorder, gastritis, GI bleed - Past Surgical History Past Surgical History: Yes Neuro Surgical History: No Pertinent History Cardiac: No Pertinent History Respiratory: No Pertinent History Gastrointestinal: Hernia Repair Genitourinary: No Pertinent History Musculoskeletal: No Pertinent History Male Surgical History: No Pertinent History Other Surgical History: Hernia repair x2. egd and colonoscopy - Social History Smoking Status: Never smoker Exposure to second hand smoke: No Drug Use: none Patient Lives Alone: No - Social Determinants of Health Will the patient participate in the screening: Yes Do you worry about a steady place to live?: No Do you have any problems with any of the following?: No known problems In the past 12 months,have you had to go without utilities?: No Transportation Issues: No Has anyone in your support network made you feel unsafe?: No Have you or anyone in your house had to go without enough: No <AGUSTÍN OSCAR - Last Filed: 08/23/24 11:07> - Physical Exam General Appearance: no apparent distress, obese Respiratory Exam: normal breath sounds, lungs clear, airway intact, No respiratory distress Cardiovascular Exam: regular rate/rhythm, normal heart sounds, capillary refill <2 sec Gastrointestinal/Abdomen Exam: soft, normal bowel sounds, tenderness (epigastric), No distention, No mass, No guarding Neurologic Exam: alert, oriented x 3, cooperative Skin Exam: normal color, warm, dry SpO2 Interpretation: normal SpO2: 97 O2 Delivery: Room Air <AGUSTÍN OSCAR - Last Filed: 08/23/24 11:07> - Nursing Vital Signs Nursing Vital Signs: Initial Vital Signs Temperature 97.4 F 08/22/24 03:13 Respiratory Rate 20 08/22/24 03:13 Blood Pressure 143/99 08/22/24 03:13 O2 Sat by Pulse Oximetry 97 08/22/24 03:13 Pain Scale Pain Intensity 0 - Course Nursing assessment & vital signs reviewed: Yes <AGUSTÍN OSCAR - Last Filed: 08/23/24 11:07> Ordered Tests: Medication Summary Discontinued Medications Generic Name Dose Route Start Last Admin Trade Name Freq PRN Reason Stop Dose Admin Al Hydrox/Mg Hydrox/Simethicone Confirm 08/22/24 03:39 Mag Hydrox/Al Hydrox/Simeth 30 Ml Udcup Administered 08/22/24 03:40 Dose 30 ml .ROUTE .STK-MED ONE Lidocaine HCl Confirm 08/22/24 03:38 Lidocaine Hcl 2% Viscous 15 Ml Udcup Administered 08/22/24 03:39 Dose 15 ml .ROUTE .STK-MED ONE Magnesium Hydroxide 45 ml 08/22/24 03:34 08/22/24 03:40 Mag Hydrx/Alum Hyd/Simeth/Lido 45 Ml Bottle PO 08/22/24 03:35 45 ml STAT ONE Administration Lab/Rad Data: Laboratory Result Diagrams 08/22/24 04:13 08/22/24 04:13 Laboratory Results 08/22/24 08/22/24 08/22/24 Range/Units 10:35 07:04 04:13 WBC (4.23-9.07) x10^3/uL RBC (4.63-6.08) x10^6/uL Hgb (13.7-17.5) g/dL Hct (40.1-51.0) % MCV (79.0-92.2) fL MCH (25.7-32.2) pg MCHC (32.3-36.5) g/dL RDW (11.6-14.4) % Plt Count (163-337) x10^3/uL MPV (9.4-12.4) fL Gran % (34.0-67.9) % Immature Gran % (Auto) (0.001-0.429) % Nucleat RBC Rel Count (0.00-0.2) % Eos # (Auto) (0.04-0.54) x10^3/uL Immature Gran # (Auto) (0.001-0.031) x10^3u/L Absolute Lymphs (auto) (1.32-3.57) x10^3/uL Absolute Monos (auto) (0.30-0.82) x10^3/uL Absolute Nucleated RBC (0.00-0.012) x10^3u/L Lymphocytes % (21.8-53.1) % Monocytes % (5.3-12.2) % Eosinophils % (0.8-7.0) % Basophils % (0.2-1.2) % Absolute Granulocytes (1.78-5.38) x10^3/uL Basophils # (0.01-0.08) x10^3/uL Sodium 135 (135-145) mmol/L Potassium 3.3 L (3.5-5.1) mmol/L Chloride 103 (98-107) mmol/L Carbon Dioxide 23 (22-30) mmol/L Anion Gap 12.7 (5-15) MEQ/L BUN 13 (9-20) mg/dL Creatinine 1.17 (0.66-1.25) mg/dL Estimated GFR 89.8 ML/MIN Glucose 120 H (74-106) mg/dL Calcium 9.0 (8.4-10.2) mg/dL Total Bilirubin 0.20 (0.2-1.3) mg/dL AST 68 H (17-59) U/L ALT 71 H (0-50) U/L Alkaline Phosphatase 52 (38-126) U/L Serum Total Protein 6.0 L (6.3-8.2) g/dL Albumin 3.6 (3.5-5.0) g/dL Lipase 114 (23-300) U/L Ethyl Alcohol 64 H 124 H 168 H (0-10) mg/dL 08/22/24 Range/Units 04:13 WBC 7.2 (4.23-9.07) x10^3/uL RBC 4.49 L (4.63-6.08) x10^6/uL Hgb 12.9 L (13.7-17.5) g/dL Hct 38.5 L (40.1-51.0) % MCV 85.7 (79.0-92.2) fL MCH 28.7 (25.7-32.2) pg MCHC 33.5 (32.3-36.5) g/dL RDW 12.7 (11.6-14.4) % Plt Count 293 (163-337) x10^3/uL MPV 9.0 L (9.4-12.4) fL Gran % 47.5 (34.0-67.9) % Immature Gran % (Auto) 1.3 H (0.001-0.429) % Nucleat RBC Rel Count 0.0 (0.00-0.2) % Eos # (Auto) 0.17 (0.04-0.54) x10^3/uL Immature Gran # (Auto) 0.09 H (0.001-0.031) x10^3u/L Absolute Lymphs (auto) 2.70 (1.32-3.57) x10^3/uL Absolute Monos (auto) 0.76 (0.30-0.82) x10^3/uL Absolute Nucleated RBC 0.00 (0.00-0.012) x10^3u/L Lymphocytes % 37.5 (21.8-53.1) % Monocytes % 10.6 (5.3-12.2) % Eosinophils % 2.4 (0.8-7.0) % Basophils % 0.7 (0.2-1.2) % Absolute Granulocytes 3.43 (1.78-5.38) x10^3/uL Basophils # 0.05 (0.01-0.08) x10^3/uL Sodium (135-145) mmol/L Potassium (3.5-5.1) mmol/L Chloride (98-107) mmol/L Carbon Dioxide (22-30) mmol/L Anion Gap (5-15) MEQ/L BUN (9-20) mg/dL Creatinine (0.66-1.25) mg/dL Estimated GFR ML/MIN Glucose (74-106) mg/dL Calcium (8.4-10.2) mg/dL Total Bilirubin (0.2-1.3) mg/dL AST (17-59) U/L ALT (0-50) U/L Alkaline Phosphatase (38-126) U/L Serum Total Protein (6.3-8.2) g/dL Albumin (3.5-5.0) g/dL Lipase (23-300) U/L Ethyl Alcohol (0-10) mg/dL <OSMEL HARRINGTON - Last Filed: 08/22/24 07:38> - Progress Progress: improved Counseled pt/family regarding: lab results, diagnosis, need for follow-up <AGUSTÍN OSCAR - Last Filed: 08/23/24 11:07> - Progress Progress Note: 08/22/24 07:38 The patient's repeat blood alcohol level is 124. This has improved but is still too high for the patient to drive home on his own. Patient's father is on his way to the emergency department to pick him up and take him home. If his father is going to drive him home he can be discharged to home. (OSMEL HARRINGTON) Patient has hx of recurrent GERD for which he takes multiple meds. He has been out of his Carafate for the past 2 weeks. Patient reports sxs worse with EtOH use and he drank large amounts before coming to ER tonight. EtOH 160s tonight. Hold until level decreases, will repeat at 0700. Responded well to GI cocktail, slept comfortably through the night. Labs remarkable for mild transaminitis. Recommend follow up and cessation of EtOH. (AGUSTÍN OSCAR) Medical Desision Making - Diagnostic Testing Diagnostic test were ordered, analyzed, and reviewed by me: Yes Radiological Interpretation: Interpreted by me - Risk of complications The pt has a mod risk of morbidity or mortality based on: Need for prescription drug management <AGUSTÍN OSCAR - Last Filed: 08/23/24 11:07> - Departure Departure Disposition: Home <OSMEL HARRINGTON - Last Filed: 08/22/24 07:38> - Departure Critical Care Time: No <AGUSTÍN OSCAR - Last Filed: 08/23/24 11:07> - Departure Clinical Impression: Epigastric pain, GERD (gastroesophageal reflux disease), Alcohol intoxication, Transaminitis Condition: Good Referrals: ALMITA MALHOTRA [employer]I BINDING FITTER AND REPAIRER [Primary Care Provider] - Follow up/PCP as directed Instructions: Abdominal pain, Dyspepsia (DC) Prescriptions: Sucralfate [Carafate] 1 g PO QID 30 Days #120 tablet
[2024-08-22] MEDS ORDERED: XYLOCAINE VISCOUS 2% 15 ML CUP ONE (03:38)
[2024-08-22] MEDS ORDERED: MAALOX ES 30 ML UNIT DOSE ONE (03:39)
[2024-08-22] MEDS: GI COCKTAIL 45 ML (Maalox/Lidocaine) PO ONE (03:40)
[2024-08-22 04:22] LABS: Absolute Neutrophil Ct (ANC) 3.43 x10^3/uL (1.78-5.38); BASOPHIL % 0.7 % (0.2-1.2); Basophil (Absolute #) 0.05 x10^3/uL (0.01-0.08); Eosinophil % 2.4 % (0.8-7.0); Eosinophil (Absolute #) 0.17 x10^3/uL (0.04-0.54); Hematocrit 38.5 % (40.1-51.0); Hemoglobin 12.9 g/dL (13.7-17.5); IMMATURE GRAN # 0.09 x10^3u/L (0.001-0.031); IMMATURE GRAN % 1.3 % (0.001-0.429); Lymphocytes % 37.5 % (21.8-53.1); Mean Cell Volume 85.7 fL (79.0-92.2); Mean Corpuscular Hemoglobin 28.7 pg (25.7-32.2); Mean Corpuscular Hgb Concent. 33.5 g/dL (32.3-36.5); Monocyte (Absolute #) 0.76 x10^3/uL (0.30-0.82); Monocytes % 10.6 % (5.3-12.2); Neutrophil % 47.5 % (34.0-67.9); Platelet Count 293 x10^3/uL (163-337); Red Blood Count 4.49 x10^6/uL (4.63-6.08); Red Cell Distribution Width 12.7 % (11.6-14.4); White Blood Count 7.2 x10^3/uL (4.23-9.07)
[2024-08-22 04:29] LABS: ALBUMIN 3.6 g/dL (3.5-5.0); ANION GAP 12.7 MEQ/L (5-15); BILIRUBIN,TOTAL 0.2 mg/dL (0.2-1.3); Creatinine 1 1.17 mg/dL (0.66-1.25); EST GLOMERULAR FILTRATION RATE 89.8 ML/MIN; Potassium 3.3 mmol/L (3.5-5.1)
[2024-08-22 11:11] VITALS: PULSE 62; RESP 18
[2024-08-22 11:12] VITALS: BP 110/62
[2024-08-23 11:07] VITALS: O2SAT 97
== END 2024-08-22 11:12 | disposition home or self-care (01) ==
LOC: ED 02:41
DX: K21.9 Gastro-esophageal reflux disease without esophagitis (principal); R10.13 Epigastric pain; R74.01 Elevation of levels of liver transaminase levels; F10.129 Alcohol abuse with intoxication, unspecified; Y90.6 Blood alcohol level of 120-199 mg/100 ml; Z79.899 Other long term (current) drug therapy
CPT/HCPCS: 36415; 80053; 82077; 83690; 85025; 99283; 99284; A9270-GY

== ENCOUNTER 2025-02-04 13:17 | Observation (INO) | payer MEDICAID, OTHER ==
[2025-02-04] MEDS ORDERED: Zofran 4 MG/2 ML VIAL ONE (15:19)
[2025-02-04] MEDS ORDERED: Sodium Chloride 0.9% 1000 ML 1,000 ML ONE (15:20)
[2025-02-04] MEDS ORDERED: MORPHINE SULFATE 4 MG INJ ONE (15:20)
[2025-02-04 15:22] LABS: Appearance Clear (Clear); Bacteria None Seen /HPF (None Seen); Bilirubin Negative (Negative); Blood Large (Negative); Epithelial Cells None Seen /HPF (None Seen); Glucose, Urine Negative (Negative); Hyaline Casts NONE SEEN /LPF (0-2); Ketones Trace (Negative); Leukocyte Esterase Negative (Negative); Nitrite Negative (Negative); Protein,Urine Dip Trace (Negative); RBC NONE SEEN /HPF (0-5); Specific Gravity <=1.005 (1.005-1.030); Urobilinogen 0.2 mg/dL (0.2); WBC 0-2 /HPF (0-5)
[2025-02-04] MEDS: Sodium Chloride 0.9% 1000 ML 1,000 ML IV STA (15:26)
[2025-02-04] MEDS: Zofran 4 MG/2 ML VIAL IV ONE (15:29)
--- NOTE | 2025-02-04 15:29 | ERPHSYRPT ---
- History of Present Illness Time Seen by Provider: 02/04/25 14:34 Historian: patient Exam Limitations: no limitations Patient Subjective Stated Complaint: Pt states he has been having kidney issues. Is scheduled for a kidney biopsy in 10 days. Thinks he may have a urinary tract infection. Lower right sided abdominal pain. Frequency and urgency with urination Triage Nursing Assessment: Pt ambulated back to room. Alert & oriented. Respirations easy and non-labored. Lower right side of abdomen tender with palpation Physician History: 24 years old male with history of hypertension, mood disorder, kidney issues scheduled for biopsy next week presented in the ER with complaint of lower abdominal pain more on the light right side with some radiation to the right flank area and right lower quadrant. Moderate intensity sharp nature. No significant aggravating or relieving factors. Reports associated nausea and dry heaving but no vomiting. Does report having loose stools since yesterday. Feels weak fatigued tired and dehydrated. No fever or chills reported. No known sick contact. Denies any urinary complaints. Allergies/Adverse Reactions: Penicillins Allergy (Unknown, Verified 08/22/24 03:24) Home Medications: hydrOXYzine HCL [Hydroxyzine HCl] 50 mg PO DAILY PRN PRN 11/07/23 [History] Trazodone HCl 100 mg PO HS PRN 01/14/24 [History] Clonidine HCl Tts-2 Patch [Catapres TTS-2 PATCH] 0.2 mg TOP Q7D 05/19/24 [History] Divalproex Sodium ER 250 mg [Depakote EXTENDED RELEASE 250 MG] 500 mg PO HS 05/19/24 [History] Metoprolol Tartrate 25 mg [Lopressor 25MG Tab] 25 mg PO DAILY 05/19/24 [History] lisinopriL [Zestril] 40 mg PO DAILY 05/19/24 [History] Alprazolam [Alprazolam ER] 1 mg PO DAILY 02/04/25 [History] Atorvastatin Calcium 40 mg PO DAILY 02/04/25 [History] Desvenlafaxine [Desvenlafaxine ER] 100 mg PO HS 02/04/25 [History] Esketamine HCl [Spravato] 84 mg INTRANASAL WEEKLY 02/04/25 [History] Ezetimibe 10 mg [Zetia 10 MG] 10 mg PO DAILY 02/04/25 [History] Metoprolol Succinate 50 mg PO DAILY 02/04/25 [History] Naltrexone HCl 50 mg PO DAILY PRN 02/04/25 [History] Tirzepatide [Zepbound] 5 mg SQ WEEKLY 02/04/25 [History] Hx Tetanus, Diphtheria Vaccination/Date Given: Yes Hx Influenza Vaccination/Date Given: No Hx Pneumococcal Vaccination/Date Given: No Travel Risk - International Travel Have you traveled outside of the country in past 3 weeks: No - Emerging Infectious Disease Are you exhibiting symptoms associated with any current EIDs: No Symptoms: Abdominal Pain, Vomitting Comment: dizziness - Review of Systems Constitutional: Fatigue, Weakness Eyes: No Symptoms Ears, Nose, & Throat: No Symptoms Respiratory: No Symptoms Cardiac: No Symptoms Abdominal/Gastrointestinal: Abdominal Pain, Nausea, Diarrhea Genitourinary Symptoms: Flank Pain Musculoskeletal: No Symptoms Neurological: No Symptoms Endocrine: No Symptoms Hematologic/Lymphatic: No Symptoms - Past Medical History Pertinent Past Medical History: Yes Neurological History: No Pertinent History, Epilepsy ENT History: No Pertinent History Cardiac History: High Cholesterol, Hypertension Respiratory History: Pneumonia Endocrine Medical History: No Pertinent History Musculoskeletal History: No Pertinent History GI Medical History: Hernia History: No Pertinent History Psycho-Social History: Anxiety, Bipolar, Depression, Other Male Reproductive Disorders: No Pertinent History Other Medical History: Autism, reactive attachment disorder, gastritis, GI bleed - Past Surgical History Past Surgical History: Yes Neuro Surgical History: No Pertinent History Cardiac: No Pertinent History Respiratory: No Pertinent History Gastrointestinal: Hernia Repair Genitourinary: No Pertinent History Musculoskeletal: No Pertinent History Male Surgical History: No Pertinent History Other Surgical History: Hernia repair x2. egd and colonoscopy - Social History Smoking Status: Never smoker Drug Use: none - Social Determinants of Health Will the patient participate in the screening: Declined to provide - Nursing Vital Signs Nursing Vital Signs: Initial Vital Signs Blood Pressure 116/59 02/04/25 16:30 O2 Sat by Pulse Oximetry 97 02/04/25 16:30 Pain Scale Pain Intensity 0 - Physical Exam General Appearance: no apparent distress Eye Exam: PERRL/EOMI Ears, Nose, Throat Exam: normal ENT inspection Neck Exam: normal inspection, supple, full range of motion Respiratory Exam: normal breath sounds, lungs clear Cardiovascular Exam: regular rate/rhythm, normal heart sounds Gastrointestinal/Abdomen Exam: soft, normal bowel sounds, tenderness (Mild to moderate generalized tenderness to deep palpation) Back Exam: normal inspection, normal range of motion, No CVA tenderness Extremity Exam: normal inspection, normal range of motion Neurologic Exam: alert, oriented x 3, cooperative Skin Exam: normal color SpO2 Interpretation: normal SpO2: 96 O2 Delivery: Room Air Ordered Tests: Active Orders 24 hr Category Date Time Status IV Insertion STAT Care 02/04/25 14:54 Active NPO (ED) STAT Care 02/04/25 14:54 Active ABDOMEN AND PELVIS W/0 CONTRAS [CT] Stat Exams 02/04/25 14:54 Completed CBC W DIFF Stat Lab 02/04/25 15:20 Completed CMP Stat Lab 02/04/25 15:20 Completed LIPASE Stat Lab 02/04/25 15:20 Completed UA W/RFX UR CULTURE Stat Lab 02/04/25 15:02 Completed Transfer Order Routine Transfer 02/04/25 Ordered Medication Summary Discontinued Medications Generic Name Dose Route Start Last Admin Trade Name Deshaunq PRN Reason Stop Dose Admin Sodium Chloride 1,000 mls @ 999 mls/hr 02/04/25 14:54 02/04/25 16:33 Sodium Chloride 0.9% 1000 Ml IV 02/04/25 15:54 999 mls/hr .Q1H1M STA Infusion Sodium Chloride Confirm 02/04/25 15:20 Sodium Chloride 0.9% 1000 Ml Administered 02/04/25 15:21 Dose 1,000 mls @ ud .ROUTE .STK-MED ONE Morphine Sulfate 4 mg 02/04/25 14:54 02/04/25 15:30 Morphine Sulfate 4 Mg/Ml Injection IV 02/04/25 14:55 4 mg STAT ONE Administration Morphine Sulfate Confirm 02/04/25 15:20 Morphine Sulfate 4 Mg/Ml Injection Administered 02/04/25 15:21 Dose 4 mg .ROUTE .STK-MED ONE Ondansetron HCl 4 mg 02/04/25 14:54 02/04/25 15:29 Ondansetron Hcl 4 Mg/2 Ml Vial IV 02/04/25 14:55 4 mg STAT ONE Administration Ondansetron HCl Confirm 02/04/25 15:19 Ondansetron Hcl 4 Mg/2 Ml Vial Administered 02/04/25 15:20 Dose 4 mg .ROUTE .STK-MED ONE Lab/Rad Data: Laboratory Result Diagrams 02/04/25 15:20 02/04/25 15:20 Laboratory Results 02/04/25 02/04/25 02/04/25 Range/Units 15:20 15:20 15:02 WBC 7.4 (4.23-9.07) x10^3/uL RBC 5.07 (4.63-6.08) x10^6/uL Hgb 14.2 (13.7-17.5) g/dL Hct 41.9 (40.1-51.0) % MCV 82.6 (79.0-92.2) fL MCH 28.0 (25.7-32.2) pg MCHC 33.9 (32.3-36.5) g/dL RDW 12.8 (11.6-14.4) % Plt Count 253 (163-337) x10^3/uL MPV 10.2 (9.4-12.4) fL Gran % 74.6 H (34.0-67.9) % Immature Gran % (Auto) 0.4 (0.001-0.429) % Nucleat RBC Rel Count 0.0 (0.00-0.2) % Eos # (Auto) 0.13 (0.04-0.54) x10^3/uL Immature Gran # (Auto) 0.03 (0.001-0.031) x10^3u/L Absolute Lymphs (auto) 1.09 L (1.32-3.57) x10^3/uL Absolute Monos (auto) 0.61 (0.30-0.82) x10^3/uL Absolute Nucleated RBC 0.00 (0.00-0.012) x10^3u/L Lymphocytes % 14.7 L (21.8-53.1) % Monocytes % 8.2 (5.3-12.2) % Eosinophils % 1.7 (0.8-7.0) % Basophils % 0.4 (0.2-1.2) % Absolute Granulocytes 5.54 H (1.78-5.38) x10^3/uL Basophils # 0.03 (0.01-0.08) x10^3/uL Sodium 136 (135-145) mmol/L Potassium 4.9 (3.5-5.1) mmol/L Chloride 98 (98-107) mmol/L Carbon Dioxide 23 (22-30) mmol/L Anion Gap 19.9 H (5-15) MEQ/L BUN 25 H (9-20) mg/dL Creatinine 2.04 H (0.66-1.25) mg/dL Estimated GFR 46.1 ML/MIN Glucose 88 (74-106) mg/dL Calcium 9.8 (8.4-10.2) mg/dL Total Bilirubin 0.70 (0.2-1.3) mg/dL AST 34 (17-59) U/L ALT 28 (0-50) U/L Alkaline Phosphatase 93 (38-126) U/L Serum Total Protein 8.1 (6.3-8.2) g/dL Albumin 5.2 H (3.5-5.0) g/dL Lipase 110 (23-300) U/L Urine Color Yellow (Yellow) Urine Appearance Clear (Clear) Urine pH 5.0 (4.6-8.0) Ur Specific [place] <=1.005 (1.005-1.030) Urine Protein Trace A (Negative) Urine Glucose (UA) Negative (Negative) mg/dL Urine Ketones Trace A (Negative) Urine Blood Large A (Negative) Urine Nitrite Negative (Negative) Urine Bilirubin Negative (Negative) Urine Urobilinogen 0.2 (0.2) mg/dL Ur Leukocyte Esterase Negative (Negative) U Hyaline Cast (Auto) NONE SEEN (0-2) /LPF Urine Microscopic RBC NONE SEEN (0-5) /HPF Urine Microscopic WBC 0-2 (0-5) /HPF Ur Epithelial Cells None Seen (None Seen) /HPF Urine Bacteria None Seen (None Seen) /HPF Urine Culture Reflexed NO (NO) - Progress Progress: improved, re-examined Progress Note: 02/04/25 18:38 24 years old is evaluated in the ER for abdominal pain with nausea dry heaving and loose stool. He is given fluids and symptomatic treatment, feeling much better on reevaluation. Workup showed normal white count, chemistries with acute renal failure with a baseline creatinine of 1.1 and today is 2.0, gap of almost 20. Obtain CT abdomen pelvis without contrast which is negative for any acute intra- abdominal pelvic findings. Patient possibly have viral gastroenteritis with acute renal failure, discussed with Dr. Velazquez reviewed history, workup and agreed with admission. Shared the results of workup with patient and plan of admission which he understands and agrees. Complexity of problem addressed: Moderate acute Complexity of data reviewed/analyzed: Moderate Risk of complication: Moderate to high risk Discussed with Dr.: Other (Dr. Rios) Will see patient in: hospital (observation) Counseled pt/family regarding: lab results, diagnosis, need for follow-up, rad results Medical Desision Making - Discussion of managment Care discussed with:: hospitalist Reviewed:: Test results Agreed on:: Treatment plan Will see patient: in hospital - Diagnostic Testing Diagnostic test were ordered, analyzed, and reviewed by me: Yes Radiological Interpretation: Reviewed by me, Teleradiologist Report - Risk of complications The pt has a mod risk of morbidity or mortality based on: Need for prescription drug management The pt has a high risk of morbidity or mortality based on: Decision regarding hospitilization or escalation of hosp level of care - Departure Departure Disposition: Observation Clinical Impression: Acute renal failure (ARF), Gastroenteritis, Dehydration Condition: Stable Critical Care Time: No Referrals: BOBBY JONES, AD TERMINAL MAKEUP OPERATOR [Primary Care Provider, UNKNOWN] - Follow up/PCP as directed
[2025-02-04] MEDS: MORPHINE SULFATE 4 MG INJ IV ONE (15:30)
[2025-02-04 15:37] LABS: Absolute Neutrophil Ct (ANC) 5.54 x10^3/uL (1.78-5.38); BASOPHIL % 0.4 % (0.2-1.2); Basophil (Absolute #) 0.03 x10^3/uL (0.01-0.08); Eosinophil % 1.7 % (0.8-7.0); Eosinophil (Absolute #) 0.13 x10^3/uL (0.04-0.54); Hematocrit 41.9 % (40.1-51.0); Hemoglobin 14.2 g/dL (13.7-17.5); IMMATURE GRAN # 0.03 x10^3u/L (0.001-0.031); IMMATURE GRAN % 0.4 % (0.001-0.429); Lymphocyte (Absolute #) 1.09 x10^3/uL (1.32-3.57); Lymphocytes % 14.7 % (21.8-53.1); Mean Cell Volume 82.6 fL (79.0-92.2); Mean Corpuscular Hgb Concent. 33.9 g/dL (32.3-36.5); Mean Platelet Volume 10.2 fL (9.4-12.4); Monocyte (Absolute #) 0.61 x10^3/uL (0.30-0.82); Monocytes % 8.2 % (5.3-12.2); Neutrophil % 74.6 % (34.0-67.9); Platelet Count 253 x10^3/uL (163-337); Red Blood Count 5.07 x10^6/uL (4.63-6.08); Red Cell Distribution Width 12.8 % (11.6-14.4); White Blood Count 7.4 x10^3/uL (4.23-9.07)
[2025-02-04 15:51] LABS: ALBUMIN 5.2 g/dL (3.5-5.0); ANION GAP 19.9 MEQ/L (5-15); BILIRUBIN,TOTAL 0.7 mg/dL (0.2-1.3); Calcium 9.8 mg/dL (8.4-10.2); Creatinine 1 2.04 mg/dL (0.66-1.25); EST GLOMERULAR FILTRATION RATE 46.1 ML/MIN; Potassium 4.9 mmol/L (3.5-5.1); Total Protein 8.1 g/dL (6.3-8.2)
--- NOTE | 2025-02-04 18:24 | XRAY ---
CLINICAL HISTORY: Right-sided abdominal pain COMPARISON: Comparison is made with 06/20/2024. TECHNIQUE: Non-contrast CT of the abdomen and pelvis was performed, with the following protocol: axial images, and reconstructed coronal and sagittal images. One of the following dose reduction techniques was utilized for this exam: Automated exposure control, adjustment of the mA and/or kV according to patient size, and use of iterative reconstruction. FINDINGS: Scanned lung bases are unremarkable. The liver is normal in size with normal attenuation. No definite focal lesions by non-contrast criteria. No intrahepatic biliary radicle dilations. Unremarkable appearing gallbladder with no stones wall thickening or pericholecystic inflammatory changes or fluid. Unremarkable appearing pancreas. No pancreatic mass or ductal dilatation is seen. The spleen is of average size, stable small hypodense focal lesion is appreciated measuring about 9 x 9 mm in the lower splenic pole . The adrenal glands are normal. The kidneys appear unremarkable with no calculi, cysts masses or hydronephrosis. Average caliber of both ureters. The urinary bladder is partially filled, no calculi are noted. The prostate is of average size. Unremarkable appearance of the stomach. The large and small bowel loops are of average caliber with no evidence of obstruction. A normal appendix is seen. No suspiciously enlarged mesenteric or retroperitoneal lymph nodes. No free fluid. IMPRESSION: 1. No acute abnormality detected. 2. Stable lower splenic pole faint benign looking hypodense lesion. 3. No significant interval changes. Electronically Signed by: Tyrone Ness MD. (02/04/2025 18:21:21 EDT)
[2025-02-04] MEDS ORDERED: Zofran 4 MG/2 ML VIAL IV PRN (20:10)
--- NOTE | 2025-02-04 20:59 | PCM.HP ---
History of Present Illness - Chief Complaint Chief Complaint: ABD pain, gastroenteritis, ARF Date: 02/04/25 History of Present Illness: Mr. FLOWER is a 24 year old male with a past medical history significant for hypertension, mood disorder and obesity recently started on Mounjaro a month ago who has been dealing with worsening kidney function for the past year with hematuria/proteinuria and scheduled for a renal biopsy next week who presents to the hospital with complaints of vague lower abdominal pain. He was seen in the ER and given doses of morphine and zofran. Initial labs were notable for a creatinine of 2.04 with GFR 46 mL/min, which is higher than his last recollected GFR in the 30s. No fever/chills. No chest pain or shortness of breath. No dysuria, gross hematuria or foamy urine. 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 - Review of Systems Constitutional: No Fever, No Chills Eyes: No Vision Changes Ears, Nose, & Throat: No Sinus Drainage Respiratory: No Cough, No Short Of Breath Cardiac: No Chest Pain, No Palpitations Abdominal/Gastrointestinal: Abdominal Pain Genitourinary Symptoms: No Dysuria, No Frequency, No Hematuria Musculoskeletal: No Back Pain Skin: No Rash Neurological: No Dizziness Psychological: No Suicidal Ideations Endocrine: Polyuria Hematologic/Lymphatic: No Easy Bleeding Medications & Allergies Home Medications: Home Medication List hydrOXYzine HCL [Hydroxyzine HCl] 50 mg PO DAILY PRN PRN 11/07/23 [History Confirmed 02/04/25] Trazodone HCl 100 mg PO HS PRN 01/14/24 [History Confirmed 02/04/25] Clonidine HCl Tts-2 Patch [Catapres TTS-2 PATCH] 0.2 mg TOP Q7D 05/19/24 [History Confirmed 02/04/25] Divalproex Sodium ER 250 mg [Depakote EXTENDED RELEASE 250 MG] 500 mg PO HS 05/19/24 [History Confirmed 02/04/25] Metoprolol Tartrate 25 mg [Lopressor 25MG Tab] 25 mg PO DAILY 05/19/24 [History Confirmed 02/04/25] lisinopriL [Zestril] 40 mg PO DAILY 05/19/24 [History Confirmed 02/04/25] Alprazolam [Alprazolam ER] 1 mg PO DAILY 02/04/25 [History Confirmed 02/04/25] Atorvastatin Calcium 40 mg PO DAILY 02/04/25 [History Confirmed 02/04/25] Desvenlafaxine [Desvenlafaxine ER] 100 mg PO HS 02/04/25 [History Confirmed 02/04/25] Esketamine HCl [Spravato] 84 mg INTRANASAL WEEKLY 02/04/25 [History Confirmed 02/04/25] Ezetimibe 10 mg [Zetia 10 MG] 10 mg PO DAILY 02/04/25 [History Confirmed 02/04/25] Metoprolol Succinate 50 mg PO DAILY 02/04/25 [History Confirmed 02/04/25] Naltrexone HCl 50 mg PO DAILY PRN 02/04/25 [History Confirmed 02/04/25] Tirzepatide [Zepbound] 5 mg SQ WEEKLY 02/04/25 [History Confirmed 02/04/25] Allergies/Adverse Reactions: Allergies Allergy/AdvReac Type Severity Reaction Status Date / Time Penicillins Allergy Unknown Verified 08/22/24 03:24 - Past Medical History Past Medical History: Yes Neurological History: No Pertinent History, Epilepsy ENT History: No Pertinent History Cardiac History: High Cholesterol, Hypertension Respiratory History: Pneumonia Endocrine Medical History: No Pertinent History Musculoskelatal History: No Pertinent History GI Medical History: Hernia History: No Pertinent History Pyscho-Social History: Anxiety, Bipolar, Depression, Other Male Reproductive Disorders: No Pertinent History Comment: Autism, reactive attachment disorder, gastritis, GI bleed - Past Surgical History Past Surgical History: Yes Neuro Surgical History: No Pertinent History Cardiac History: No Pertinent History Respiratory Surgery: No Pertinent History GI Surgical History: Hernia Repair Genitourinary Surgical Hx: No Pertinent History Musculskeletal Surgical Hx: No Pertinent History Male Surgical History: No Pertinent History Other Surgical History: Hernia repair x2. egd and colonoscopy - Social History Smoking Status: Never smoker Exposure to second hand smoke: No Alcohol: None Drug Use: none - Social Determinants of Health Will the patient participate in the screening: Declined to provide Do you worry about a steady place to live?: No In the past 12 months,have you had to go without utilities?: No Have you or anyone in your house had to go without enough: No Transportation Issues: No Has anyone in your support network made you feel unsafe?: No - Physical Exam Vital Signs: Vital Signs - 24 hr Temp Pulse Resp BP BP Pulse Ox 02/04/25 20:00 97.9 F 90 18 132/70 98 02/04/25 19:31 96 02/04/25 19:00 98 H 18 111/68 97 02/04/25 18:30 116/75 96 02/04/25 18:24 127/73 02/04/25 18:00 87/63 98 02/04/25 17:30 105/63 99 02/04/25 17:20 98 02/04/25 17:10 97 02/04/25 17:06 100 02/04/25 16:30 116/59 97 General Appearance: no apparent distress Neurologic Exam: alert, oriented x 3 Ears, Nose, Throat Exam: dry mucous membranes Neck Exam: supple Respiratory Exam: No respiratory distress Cardiovascular Exam: regular rate/rhythm Gastrointestinal/Abdomen Exam: soft Extremity Exam: No pedal edema, No swelling Skin Exam: normal color, No rash Results - Labs Lab/Micro Results: Lab Results-Last 24 Hours 02/04/25 02/04/25 02/04/25 Range/Units 15:02 15:20 15:20 WBC 7.4 (4.23-9.07) x10^3/uL RBC 5.07 (4.63-6.08) x10^6/uL Hgb 14.2 (13.7-17.5) g/dL Hct 41.9 (40.1-51.0) % MCV 82.6 (79.0-92.2) fL MCH 28.0 (25.7-32.2) pg MCHC 33.9 (32.3-36.5) g/dL RDW 12.8 (11.6-14.4) % Plt Count 253 (163-337) x10^3/uL MPV 10.2 (9.4-12.4) fL Gran % 74.6 H (34.0-67.9) % Immature Gran % (Auto) 0.4 (0.001-0.429) % Nucleat RBC Rel Count 0.0 (0.00-0.2) % Eos # (Auto) 0.13 (0.04-0.54) x10^3/uL Immature Gran # (Auto) 0.03 (0.001-0.031) x10^3u/L Absolute Lymphs (auto) 1.09 L (1.32-3.57) x10^3/uL Absolute Monos (auto) 0.61 (0.30-0.82) x10^3/uL Absolute Nucleated RBC 0.00 (0.00-0.012) x10^3u/L Lymphocytes % 14.7 L (21.8-53.1) % Monocytes % 8.2 (5.3-12.2) % Eosinophils % 1.7 (0.8-7.0) % Basophils % 0.4 (0.2-1.2) % Absolute Granulocytes 5.54 H (1.78-5.38) x10^3/uL Basophils # 0.03 (0.01-0.08) x10^3/uL Sodium 136 (135-145) mmol/L Potassium 4.9 (3.5-5.1) mmol/L Chloride 98 (98-107) mmol/L Carbon Dioxide 23 (22-30) mmol/L Anion Gap 19.9 H (5-15) MEQ/L BUN 25 H (9-20) mg/dL Creatinine 2.04 H (0.66-1.25) mg/dL Estimated GFR 46.1 ML/MIN Glucose 88 (74-106) mg/dL Calcium 9.8 (8.4-10.2) mg/dL Total Bilirubin 0.70 (0.2-1.3) mg/dL AST 34 (17-59) U/L ALT 28 (0-50) U/L Alkaline Phosphatase 93 (38-126) U/L Serum Total Protein 8.1 (6.3-8.2) g/dL Albumin 5.2 H (3.5-5.0) g/dL Lipase 110 (23-300) U/L Urine Color Yellow (Yellow) Urine Appearance Clear (Clear) Urine pH 5.0 (4.6-8.0) Ur Specific [place] <=1.005 (1.005-1.030) Urine Protein Trace A (Negative) Urine Glucose (UA) Negative (Negative) mg/dL Urine Ketones Trace A (Negative) Urine Blood Large A (Negative) Urine Nitrite Negative (Negative) Urine Bilirubin Negative (Negative) Urine Urobilinogen 0.2 (0.2) mg/dL Ur Leukocyte Esterase Negative (Negative) U Hyaline Cast (Auto) NONE SEEN (0-2) /LPF Urine Microscopic RBC NONE SEEN (0-5) /HPF Urine Microscopic WBC 0-2 (0-5) /HPF Ur Epithelial Cells None Seen (None Seen) /HPF Urine Bacteria None Seen (None Seen) /HPF Urine Culture Reflexed NO (NO) - Radiology Impressions Radiology Exams & Impressions: Radiology Procedures Category Date Time Status ABDOMEN AND PELVIS W/0 CONTRAS [CT] Stat Exams 02/04/25 14:54 Completed Assessment/Plan (1) Acute renal failure (ARF) Current Visit: Yes Status: Acute Qualifiers: Acute renal failure type: unspecified Qualified Code(s): N17.9 - Acute kidney failure, unspecified Assessment & Plan: Unclear etiology, has been scheduled for renal biopsy in the next 7-10 days, suspect he may have some glomerular disease versus IgA nephropathy 1. Trial of IVFs 2. Hold JAMAL for now 3. Check UPC, complement levels, SPEP/UPEP 4. Follow I/Os 5. Watch electrolytes, creatinine closely (2) Hypertensive chronic kidney disease with stage 1 through stage 4 chronic kidney disease, or unspecified chronic kidney disease Current Visit: Yes Status: Acute Assessment & Plan: Blood pressure under reasonable control but with episodes of hypotension 1. Will hold JAMAL 2. Low Na diet 3. IVF for bp support 4. Monitor blood pressure readings Code(s): I12.9 - HYPERTENSIVE CHRONIC KIDNEY DISEASE W STG 1-4/UNSP CHR KDNY (3) Hematuria Current Visit: Yes Status: Acute Qualifiers: Hematuria type: asymptomatic microscopic Qualified Code(s): R31.21 - Asymptomatic microscopic hematuria Assessment & Plan: Unclear etiology but need to rule out acute GN versus thin basement membrane disease 1. Monitor U/A 2. Check kidney function Code(s): R31.9 - HEMATURIA, UNSPECIFIED (4) Abdominal pain Current Visit: No Status: Acute Qualifiers: Abdominal location: lower abdomen, unspecified Qualified Code(s): R10.30 - Lower abdominal pain, unspecified Assessment & Plan: May be related to mounjaro, no s/s of infection/UTI, Ct abd/pelvis unremarkable 1. Pain control 2. Hold Mounjaro 3. Monitor s/s 4. Trend WBC Code(s): R10.9 - UNSPECIFIED ABDOMINAL PAIN Telemedicine Encounter - Telemedicine Encounter Telemedicine Encounter: "The entirety of this encounter was performed via Telemedicine" This visit was performed using real-time audio and video connection between my location and thepatients locationwith the assistance of a surrogateat the patients location. Written or verbal consent was obtained from the patient/guardian to perform this visit usingsynchronoustelemedicine technology. Any patient questions regarding the telemedicine interaction were answered.
[2025-02-04 21:25] LABS: CREATININE,URINE RANDOM 70.8 MG/DL
[2025-02-04] MEDS: Sodium Chloride 0.9% 1000 ML 1,000 ML IV SCH (21:51)
[2025-02-04] MEDS: xanAX 0.5 MG PO PRN (23:20)
[2025-02-04] MEDS: MORPHINE SULFATE 2 MG INJ IV PRN (23:21)
[2025-02-05] MEDS: Catapres TTS-2 PATCH TOP SCH (00:46)
--- NOTE | 2025-02-05 05:17 | PCM.NOTE ---
Date and Time: 02/05/25 0511 Subjective Assessment: Mr. Alves is a 24 year old male with a pmhx of HTN, mood disorder and CKD, presented to the ED 02/04/25 with acute onset of right-sided lower abdominal pain radiating to the right flank and right lower quadrant. The pain was sharp and moderate in intensity, without clear aggravating or relieving factors. As sociated symptoms included nausea, dry heaving without emesis, loose stools since the day prior, generalized fatigue, weakness, and clinical signs of dehydration. He denied fever, chills, urinary complaints, or known sick contacts. He received intravenous fluids and symptomatic management in the ED, resulting in notable clinical improvement on reassessment. CT scan of the abdomen and pelvis without contrast demonstrated no acute intra-abdominal or pelvic abnormalities. Incidental findings included a stable, faintly hypodense lesion in the lower pole of the spleen, which appears benign. Labs demonstrated FORREST with creatinine elevated to 2.04 mg/dL from a known baseline of 1.5 mg/dL. Anion gap was elevated at approximately 20. Urinalysis was notable for elevated random protein, suggesting significant proteinuria, and low urine sodium. A renal biopsy is already scheduled next week for further diagnostic clarification with Dr. Florian Nephrology. 02/05/25: Met with patient bedside. Endorses nausea, dysuria, urinary frequency, and right upper quadrant pain. Denies vomiting. Kidney function is improving. - Review of Systems Constitutional: No Symptoms Eyes: No Symptoms Ears, Nose, & Throat: No Symptoms Respiratory: No Symptoms Abdominal/Gastrointestinal: Abdominal Pain (RUQ), Nausea, Diarrhea Genitourinary Symptoms: Dysuria, Frequency Musculoskeletal: No Symptoms Skin: No Symptoms Neurological: Dizziness Psychological: No Symptoms Endocrine: No Symptoms Hematologic/Lymphatic: No Symptoms Immunological/Allergic: No Symptoms Objective Exam General Appearance: no apparent distress Neurologic Exam: alert, oriented x 3, cooperative Skin Exam: normal color Eye Exam: PERRL Ears, Nose, Throat Exam: normal ENT inspection Neck Exam: normal inspection Respiratory Exam: normal breath sounds, lungs clear Cardiovascular Exam: regular rate/rhythm, normal heart sounds Gastrointestinal/Abdomen Exam: tenderness (RUQ/RLQ TTP) Extremity Exam: normal inspection Objective Data Vital Signs: Vital Signs - 24 hr Temp Pulse Resp BP BP Pulse Ox 02/05/25 04:00 97.5 F 64 16 111/55 98 02/04/25 23:57 97.5 F 74 17 123/58 98 02/04/25 20:00 97.9 F 90 18 132/70 98 02/04/25 19:31 96 02/04/25 19:00 98 H 18 111/68 97 02/04/25 18:30 116/75 96 02/04/25 18:24 127/73 02/04/25 18:00 87/63 98 02/04/25 17:30 105/63 99 02/04/25 17:20 98 02/04/25 17:10 97 02/04/25 17:06 100 02/04/25 16:30 116/59 97 Pain Assessment - Last Documented Pain Intensity 6 Pain Scale Used 0-10 Pain Scale Intake and Output: Intake & Output 02/02/25 02/03/25 02/04/25 02/05/25 11:59 11:59 11:59 11:59 Intake Total 1177 Output Total 200 Balance 977 Weight 115.3 kg Lab Results: Lab Results-Last 24 Hours 02/04/25 02/04/25 02/04/25 Range/Units 15:02 15:02 15:20 WBC 7.4 (4.23-9.07) x10^3/uL RBC 5.07 (4.63-6.08) x10^6/uL Hgb 14.2 (13.7-17.5) g/dL Hct 41.9 (40.1-51.0) % MCV 82.6 (79.0-92.2) fL MCH 28.0 (25.7-32.2) pg MCHC 33.9 (32.3-36.5) g/dL RDW 12.8 (11.6-14.4) % Plt Count 253 (163-337) x10^3/uL MPV 10.2 (9.4-12.4) fL Gran % 74.6 H (34.0-67.9) % Immature Gran % (Auto) 0.4 (0.001-0.429) % Nucleat RBC Rel Count 0.0 (0.00-0.2) % Eos # (Auto) 0.13 (0.04-0.54) x10^3/uL Immature Gran # (Auto) 0.03 (0.001-0.031) x10^3u/L Absolute Lymphs (auto) 1.09 L (1.32-3.57) x10^3/uL Absolute Monos (auto) 0.61 (0.30-0.82) x10^3/uL Absolute Nucleated RBC 0.00 (0.00-0.012) x10^3u/L Lymphocytes % 14.7 L (21.8-53.1) % Monocytes % 8.2 (5.3-12.2) % Eosinophils % 1.7 (0.8-7.0) % Basophils % 0.4 (0.2-1.2) % Absolute Granulocytes 5.54 H (1.78-5.38) x10^3/uL Basophils # 0.03 (0.01-0.08) x10^3/uL Sodium (135-145) mmol/L Potassium (3.5-5.1) mmol/L Chloride (98-107) mmol/L Carbon Dioxide (22-30) mmol/L Anion Gap (5-15) MEQ/L BUN (9-20) mg/dL Creatinine (0.66-1.25) mg/dL Estimated GFR ML/MIN Glucose (74-106) mg/dL Calcium (8.4-10.2) mg/dL Total Bilirubin (0.2-1.3) mg/dL AST (17-59) U/L ALT (0-50) U/L Alkaline Phosphatase (38-126) U/L Serum Total Protein (6.3-8.2) g/dL Albumin (3.5-5.0) g/dL Lipase (23-300) U/L Urine Color Yellow (Yellow) Urine Appearance Clear (Clear) Urine pH 5.0 (4.6-8.0) Ur Specific [place] <=1.005 (1.005-1.030) Urine Protein Trace A (Negative) Urine Glucose (UA) Negative (Negative) mg/dL Urine Ketones Trace A (Negative) Urine Blood Large A (Negative) Urine Nitrite Negative (Negative) Urine Bilirubin Negative (Negative) Urine Urobilinogen 0.2 (0.2) mg/dL Ur Leukocyte Esterase Negative (Negative) U Hyaline Cast (Auto) NONE SEEN (0-2) /LPF Urine Microscopic RBC NONE SEEN (0-5) /HPF Urine Microscopic WBC 0-2 (0-5) /HPF Ur Epithelial Cells None Seen (None Seen) /HPF Urine Bacteria None Seen (None Seen) /HPF Urine Culture Reflexed NO (NO) Ur Random Creatinine 70.8 MG/DL U Random Total Protein 26 H (0-12) mg/dL Urine Sodium 11 L (30-90) mmol/L / Range/Units 15:20 WBC (4.23-9.07) x10^3/uL RBC (4.63-6.08) x10^6/uL Hgb (13.7-17.5) g/dL Hct (40.1-51.0) % MCV (79.0-92.2) fL MCH (25.7-32.2) pg MCHC (32.3-36.5) g/dL RDW (11.6-14.4) % Plt Count (163-337) x10^3/uL MPV (9.4-12.4) fL Gran % (34.0-67.9) % Immature Gran % (Auto) (0.001-0.429) % Nucleat RBC Rel Count (0.00-0.2) % Eos # (Auto) (0.04-0.54) x10^3/uL Immature Gran # (Auto) (0.001-0.031) x10^3u/L Absolute Lymphs (auto) (1.32-3.57) x10^3/uL Absolute Monos (auto) (0.30-0.82) x10^3/uL Absolute Nucleated RBC (0.00-0.012) x10^3u/L Lymphocytes % (21.8-53.1) % Monocytes % (5.3-12.2) % Eosinophils % (0.8-7.0) % Basophils % (0.2-1.2) % Absolute Granulocytes (1.78-5.38) x10^3/uL Basophils # (0.01-0.08) x10^3/uL Sodium 136 (135-145) mmol/L Potassium 4.9 (3.5-5.1) mmol/L Chloride 98 (98-107) mmol/L Carbon Dioxide 23 (22-30) mmol/L Anion Gap 19.9 H (5-15) MEQ/L BUN 25 H (9-20) mg/dL Creatinine 2.04 H (0.66-1.25) mg/dL Estimated GFR 46.1 ML/MIN Glucose 88 (74-106) mg/dL Calcium 9.8 (8.4-10.2) mg/dL Total Bilirubin 0.70 (0.2-1.3) mg/dL AST 34 (17-59) U/L ALT 28 (0-50) U/L Alkaline Phosphatase 93 (38-126) U/L Serum Total Protein 8.1 (6.3-8.2) g/dL Albumin 5.2 H (3.5-5.0) g/dL Lipase 110 (23-300) U/L Urine Color (Yellow) Urine Appearance (Clear) Urine pH (4.6-8.0) Ur Specific [place] (1.005-1.030) Urine Protein (Negative) Urine Glucose (UA) (Negative) mg/dL Urine Ketones (Negative) Urine Blood (Negative) Urine Nitrite (Negative) Urine Bilirubin (Negative) Urine Urobilinogen (0.2) mg/dL Ur Leukocyte Esterase (Negative) U Hyaline Cast (Auto) (0-2) /LPF Urine Microscopic RBC (0-5) /HPF Urine Microscopic WBC (0-5) /HPF Ur Epithelial Cells (None Seen) /HPF Urine Bacteria (None Seen) /HPF Urine Culture Reflexed (NO) Ur Random Creatinine MG/DL U Random Total Protein (0-12) mg/dL Urine Sodium (30-90) mmol/L Radiology Exams: Radiology Procedures Category Date Time Status ABDOMEN AND PELVIS W/0 CONTRAS [CT] Stat Exams 02/04/25 14:54 Completed Medications: Medications Generic Name Dose Route Start Last Admin Trade Name Freq PRN Reason Stop Dose Admin Acetaminophen 325 mg 02/04/25 20:10 Acetaminophen 325 Mg Tablet PO 03/06/25 20:09 Q4H PRN PRN PAIN, FEVER, HEADACHE Alprazolam 1 mg 02/04/25 22:54 02/04/25 23:20 Alprazolam 0.5 Mg Tablet PO 03/06/25 22:53 1 mg Q6H PRN PRN Administration ANXIETY Atorvastatin Calcium 40 mg 02/05/25 22:00 Atorvastatin Calcium 40 Mg Tablet PO 03/07/25 21:59 QHS LUCA Clonidine HCl 0.2 mg 02/05/25 00:30 02/05/25 00:46 Clonidine Hcl 0.2 Mg Patch TOP 03/07/25 00:29 Not Given Q7D LUCA Divalproex Sodium 500 mg 02/05/25 22:00 Divalproex Sodium 250 Mg Tab Extended Release PO 03/07/25 21:59 QHS LUCA Ezetimibe 10 mg 02/05/25 10:00 Ezetimibe 10 Mg Tab PO 03/07/25 09:59 QAM LUCA Sodium Chloride 1,000 mls @ 100 mls/hr 02/04/25 20:15 02/04/25 21:51 Sodium Chloride 0.9% 1000 Ml IV 03/06/25 20:14 100 mls/hr .Q10H LUCA Administration Metoprolol Succinate 50 mg 02/05/25 10:00 Metoprolol Succinate 50 Mg Tablet.Sa PO 03/07/25 09:59 DAILY LUCA Morphine Sulfate 2 mg 02/04/25 20:26 02/04/25 23:21 Morphine Sulfate 2 Mg/Ml Inj IV 02/09/25 20:25 2 mg Q4H PRN PRN Administration SEVERE PAIN Ondansetron HCl 4 mg 02/04/25 20:10 Ondansetron Hcl 4 Mg/2 Ml Vial IV 03/06/25 20:09 Q6H PRN PRN NAUSEA/VOMITING Trazodone HCl 100 mg 02/05/25 22:00 Trazodone Hcl 50 Mg Tablet PO 03/07/25 21:59 HS [facility] Discontinued Medications Generic Name Dose Route Start Last Admin Trade Name Freq PRN Reason Stop Dose Admin Sodium Chloride 1,000 mls @ 999 mls/hr 02/04/25 14:54 02/04/25 16:33 Sodium Chloride 0.9% 1000 Ml IV 02/04/25 15:54 999 mls/hr .Q1H1M STA Infusion Sodium Chloride Confirm 02/04/25 15:20 Sodium Chloride 0.9% 1000 Ml Administered 02/04/25 15:21 Dose 1,000 mls @ ud .ROUTE .STK-MED ONE Morphine Sulfate 4 mg 02/04/25 14:54 02/04/25 15:30 Morphine Sulfate 4 Mg/Ml Injection IV 02/04/25 14:55 4 mg STAT ONE Administration Morphine Sulfate Confirm 02/04/25 15:20 Morphine Sulfate 4 Mg/Ml Injection Administered 02/04/25 15:21 Dose 4 mg .ROUTE .STK-MED ONE Ondansetron HCl 4 mg 02/04/25 14:54 02/04/25 15:29 Ondansetron Hcl 4 Mg/2 Ml Vial IV 02/04/25 14:55 4 mg STAT ONE Administration Ondansetron HCl Confirm 02/04/25 15:19 Ondansetron Hcl 4 Mg/2 Ml Vial Administered 02/04/25 15:20 Dose 4 mg .ROUTE .STK-MED ONE Assessment/Plan (1) Acute renal failure (ARF) Current Visit: Yes Status: Acute Qualifiers: Acute renal failure type: unspecified Qualified Code(s): N17.9 - Acute kidney failure, unspecified Assessment & Plan: -Baseline creat at 1.5- reviewed admission creat at 2.04, reviewed at 1.88 -Monitor renal/lytes -Hold JAMAL/Mounjaro and nephrotoxic agents -IVF -labs reviewed low urine sodium, and proteinuria -add SPEP -Patient scheduled for renal biopsy next week (2) Hematuria Current Visit: Yes Status: Acute Qualifiers: Hematuria type: asymptomatic microscopic Qualified Code(s): R31.21 - Asymptomatic microscopic hematuria Assessment & Plan: Unclear etiology but need to rule out acute GN versus thin basement membrane disease -Repeat UA -Start Cipro Code(s): R31.9 - HEMATURIA, UNSPECIFIED (3) Hypertensive chronic kidney disease with stage 1 through stage 4 chronic kidney disease, or unspecified chronic kidney disease Current Visit: Yes Status: Acute Assessment & Plan: -Hold JAMAL with FORREST -currently stable -Monitor closely Code(s): I12.9 - HYPERTENSIVE CHRONIC KIDNEY DISEASE W STG 1-4/UNSP CHR KDNY (4) Abdominal pain Current Visit: No Status: Acute Qualifiers: Abdominal location: lower abdomen, unspecified Qualified Code(s): R10.30 - Lower abdominal pain, unspecified Assessment & Plan: -May be secondary to Mounjaro- hold -CT abdomen with no acute findings -CMP/CBC reviewed Code(s): R10.9 - UNSPECIFIED ABDOMINAL PAIN (5) HLD (hyperlipidemia) Current Visit: Yes Status: Acute Assessment & Plan: -Continue Lipitor Code(s): E78.5 - HYPERLIPIDEMIA, UNSPECIFIED (6) Anxiety and depression Current Visit: Yes Status: Acute Assessment & Plan: -Continue xanax prn Code(s): F41.9 - ANXIETY DISORDER, UNSPECIFIED; F32.A - DEPRESSION, UNSPECIFIED (7) Epilepsy Current Visit: Yes Status: Acute Assessment & Plan: -Continue Depakote Code(s): G40.909 - EPILEPSY, UNSP, NOT INTRACTABLE, WITHOUT STATUS EPILEPTICUS
[2025-02-05 05:18] LABS: ALBUMIN 4.8 g/dL (3.5-5.0); ANION GAP 16.1 MEQ/L (5-15); Calcium 9.3 mg/dL (8.4-10.2); Creatinine 1 1.88 mg/dL (0.66-1.25); EST GLOMERULAR FILTRATION RATE 50.9 ML/MIN; PHOSPHOROUS 4.3 mg/dL (2.5-4.5); Potassium 4.4 mmol/L (3.5-5.1)
[2025-02-05 07:42] LABS: Absolute Neutrophil Ct (ANC) 2.71 x10^3/uL (1.78-5.38); BASOPHIL % 0.6 % (0.2-1.2); Basophil (Absolute #) 0.04 x10^3/uL (0.01-0.08); Eosinophil % 5.8 % (0.8-7.0); Hematocrit 42.5 % (40.1-51.0); Hemoglobin 13.8 g/dL (13.7-17.5); IMMATURE GRAN # 0.01 x10^3u/L (0.001-0.031); IMMATURE GRAN % 0.1 % (0.001-0.429); Lymphocyte (Absolute #) 3.17 x10^3/uL (1.32-3.57); Lymphocytes % 45.7 % (21.8-53.1); Mean Cell Volume 84.8 fL (79.0-92.2); Mean Corpuscular Hemoglobin 27.5 pg (25.7-32.2); Mean Corpuscular Hgb Concent. 32.5 g/dL (32.3-36.5); Mean Platelet Volume 10.5 fL (9.4-12.4); Monocytes % 8.7 % (5.3-12.2); Neutrophil % 39.1 % (34.0-67.9); Platelet Count 256 x10^3/uL (163-337); Red Blood Count 5.01 x10^6/uL (4.63-6.08); Red Cell Distribution Width 13.2 % (11.6-14.4); White Blood Count 6.9 x10^3/uL (4.23-9.07)
[2025-02-05] MEDS: Toprol Xl 50 MG PO SCH (10:42)
[2025-02-05] MEDS: Zetia 10 MG PO SCH (10:43)
[2025-02-05] MEDS: TYLENOL 325 MG PO PRN (10:48)
[2025-02-05] MEDS: Cipro 500 MG PO SCH (13:20)
[2025-02-05 14:17] LABS: Appearance Clear (Clear); Bacteria None Seen /HPF (None Seen); Bilirubin Negative (Negative); Blood Large (Negative); Epithelial Cells None Seen /HPF (None Seen); Glucose, Urine Negative (Negative); Hyaline Casts NONE SEEN /LPF (0-2); Ketones 15 (Negative); Leukocyte Esterase Negative (Negative); Nitrite Negative (Negative); Protein,Urine Dip Trace (Negative); Specific Gravity 1.015 (1.005-1.030); Urobilinogen 0.2 mg/dL (0.2)
[2025-02-05] MEDS: DESYREL 50 MG PO SCH (21:39)
[2025-02-05] MEDS: Depakote EXTENDED RELEASE 250 MG PO SCH (21:40)
[2025-02-05] MEDS: ZOCOR 20MG PO SCH (21:41)
[2025-02-06 04:48] VITALS: TEMP 97.1
[2025-02-06 07:01] LABS: BASOPHIL % 1.1 % (0.2-1.2); Basophil (Absolute #) 0.08 x10^3/uL (0.01-0.08); Eosinophil % 8.6 % (0.8-7.0); Eosinophil (Absolute #) 0.62 x10^3/uL (0.04-0.54); Hematocrit 45.3 % (40.1-51.0); Hemoglobin 14.4 g/dL (13.7-17.5); IMMATURE GRAN # 0.01 x10^3u/L (0.001-0.031); IMMATURE GRAN % 0.1 % (0.001-0.429); Lymphocyte (Absolute #) 3.57 x10^3/uL (1.32-3.57); Lymphocytes % 49.5 % (21.8-53.1); Mean Cell Volume 87.6 fL (79.0-92.2); Mean Corpuscular Hemoglobin 27.9 pg (25.7-32.2); Mean Corpuscular Hgb Concent. 31.8 g/dL (32.3-36.5); Mean Platelet Volume 10.7 fL (9.4-12.4); Monocyte (Absolute #) 0.63 x10^3/uL (0.30-0.82); Monocytes % 8.7 % (5.3-12.2); Platelet Count 221 x10^3/uL (163-337); Red Blood Count 5.17 x10^6/uL (4.63-6.08); Red Cell Distribution Width 13.1 % (11.6-14.4); White Blood Count 7.2 x10^3/uL (4.23-9.07)
[2025-02-06 07:14] LABS: ALBUMIN 4.7 g/dL (3.5-5.0); ANION GAP 19.2 MEQ/L (5-15); BILIRUBIN,TOTAL 0.6 mg/dL (0.2-1.3); Calcium 9.5 mg/dL (8.4-10.2); Creatinine 1 1.7 mg/dL (0.66-1.25); EST GLOMERULAR FILTRATION RATE 57.4 ML/MIN; Potassium 4.6 mmol/L (3.5-5.1); Total Protein 7.3 g/dL (6.3-8.2)
[2025-02-06 07:18] VITALS: BP 110/58; PULSE 59; RESP 18; O2SAT 100
--- NOTE | 2025-02-06 09:43 | PCM.DS ---
Discharge Summary Date of Admission: 02/04/25 19:40 Date of Discharge: 02/06/25 Admitting Physician: IRIS WALKER MD Primary Care Provider: BOBBY JONES Allergies Allergies Penicillins Allergy (Unknown, Verified 08/22/24 03:24) Hospital Summary - Hospital Course Hospital Course: Mr. Alves is a 24-year-old male with a history of hypertension, CKD (baseline Cr 2.3 per patient), mood disorder, epilepsy, and hyperlipidemia who presented to ED 02/04/25 with acute right lower quadrant and flank pain, associated with nausea, dry heaving, loose stools, dysuria, and clinical signs of dehydration. He was found to have an FORREST with Cr 2.04 (baseline 1.5 in system, though patient reports baseline closer to 2.3), elevated anion gap (20), proteinuria, and microscopic hematuria. CT abdomen/pelvis was negative for acute pathology. UA showed significant proteinuria and low urine sodium. Urine culture remains negative to date. Given concern for underlying glomerular pathology, renal biopsy is already scheduled with outpatient nephrology. His FORREST was likely multifactorial (volume depletion, chronic kidney disease). He improved with IV fluids and holding potentially nephrotoxic medications (including JAMAL inhibitor and Mounjaro). Notably, the patient has lost 30 lbs over the last 3 weeks with poor PO intake on Mounjaro; this was held and he was advised to follow up with the prescriber to consider dose reduction. RUQ pain has resolved. Empiric ciprofloxacin was initiated for dysuria, though UA was not definitive and culture was NGTD. Renal function improved to Cr 1.7 by discharge. Patient is stable for discharge with close nephrology follow-up for biopsy, continuation of Cipro to complete 7-day course, and PCP follow-up within one week to reassess blood pressure management and further medication adjustments. Discharge Note New Diagnosis: FORREST New Medications: Hold Mounjaro - Cipro Zofran Follow Up: PCP/nephrology Results pending: Carrington I spent 35 minutes [id number] with the patient on the day of discharge performing discharge exam, discussing hospital stay and discharge instructions with patient and caregivers, preparation of discharge records, prescriptions & referral forms and addressing any questions/concerns the patient had as documented above. - Vitals & Intake/Output Vital Signs: Vital Signs Temperature 97.1 F 02/06/25 07:17 Pulse Rate 59 L 04/19/25 07:17 Respiratory Rate 18 02/06/25 07:17 Blood Pressure 110/58 02/06/25 07:17 O2 Sat by Pulse Oximetry 100 02/06/25 07:17 Intake & Output: Intake & Output 02/03/25 02/04/25 02/05/25 02/06/25 11:59 11:59 11:59 11:59 Intake Total 1177 2870 Output Total 750 Balance 427 2870 Weight 115.3 kg - Lab Result Diagrams: 02/06/25 06:04 02/06/25 06:04 Lab Results-Last 24 Hrs: Lab Results-Last 24 Hours 02/05/25 02/06/25 02/06/25 Range/Units 12:00 06:04 06:04 WBC 7.2 (4.23-9.07) x10^3/uL RBC 5.17 (4.63-6.08) x10^6/uL Hgb 14.4 (13.7-17.5) g/dL Hct 45.3 (40.1-51.0) % MCV 87.6 (79.0-92.2) fL MCH 27.9 (25.7-32.2) pg MCHC 31.8 L (32.3-36.5) g/dL RDW 13.1 (11.6-14.4) % Plt Count 221 (163-337) x10^3/uL MPV 10.7 (9.4-12.4) fL Gran % 32.0 L (34.0-67.9) % Immature Gran % (Auto) 0.1 (0.001-0.429) % Nucleat RBC Rel Count 0.0 (0.00-0.2) % Eos # (Auto) 0.62 H (0.04-0.54) x10^3/uL Immature Gran # (Auto) 0.01 (0.001-0.031) x10^3u/L Absolute Lymphs (auto) 3.57 (1.32-3.57) x10^3/uL Absolute Monos (auto) 0.63 (0.30-0.82) x10^3/uL Absolute Nucleated RBC 0.00 (0.00-0.012) x10^3u/L Lymphocytes % 49.5 (21.8-53.1) % Monocytes % 8.7 (5.3-12.2) % Eosinophils % 8.6 H (0.8-7.0) % Basophils % 1.1 (0.2-1.2) % Absolute Granulocytes 2.30 (1.78-5.38) x10^3/uL Basophils # 0.08 (0.01-0.08) x10^3/uL Sodium 141 (135-145) mmol/L Potassium 4.6 (3.5-5.1) mmol/L Chloride 105 (98-107) mmol/L Carbon Dioxide 21 L (22-30) mmol/L Anion Gap 19.2 H (5-15) MEQ/L BUN 21 H (9-20) mg/dL Creatinine 1.70 H (0.66-1.25) mg/dL Estimated GFR 57.4 ML/MIN Glucose 73 L (74-106) mg/dL Calcium 9.5 (8.4-10.2) mg/dL Total Bilirubin 0.60 (0.2-1.3) mg/dL AST 36 (17-59) U/L ALT 28 (0-50) U/L Alkaline Phosphatase 72 (38-126) U/L Serum Total Protein 7.3 (6.3-8.2) g/dL Albumin 4.7 (3.5-5.0) g/dL Urine Color Yellow (Yellow) Urine Appearance Clear (Clear) Urine pH 5.0 (4.6-8.0) Ur Specific [place] 1.015 (1.005-1.030) Urine Protein Trace A (Negative) Urine Glucose (UA) Negative (Negative) mg/dL Urine Ketones 15 A (Negative) Urine Blood Large A (Negative) Urine Nitrite Negative (Negative) Urine Bilirubin Negative (Negative) Urine Urobilinogen 0.2 (0.2) mg/dL Ur Leukocyte Esterase Negative (Negative) U Hyaline Cast (Auto) NONE SEEN (0-2) /LPF Urine Microscopic RBC 3-5 (0-5) /HPF Urine Microscopic WBC 3-5 (0-5) /HPF Ur Epithelial Cells None Seen (None Seen) /HPF Uric Acid Crystals 11-25 A (None Seen) /HPF Urine Bacteria None Seen (None Seen) /HPF Urine Culture Reflexed YES (NO) Micro Results-Entire Visit: Microbiology 02/05/25 12:00 Urine Culture - Preliminary Clean Catch Midstream NO GROWTH TO DATE - Radiology Exams Ordered Rad Exams-Entire Visit: Radiology Procedures Category Date Time Status ABDOMEN AND PELVIS W/0 CONTRAS [CT] Stat Exams 02/04/25 14:54 Completed Discharge Exam General Appearance: no apparent distress Neurologic Exam: alert, oriented x 3, cooperative Eye Exam: PERRL Ears, Nose, Throat Exam: normal ENT inspection Neck Exam: normal inspection Respiratory Exam: normal breath sounds, lungs clear Cardiovascular Exam: regular rate/rhythm, normal heart sounds Gastrointestinal/Abdomen Exam: soft, normal bowel sounds Male Genitalia Exam: deferred Rectal Exam: deferred Extremity Exam: normal inspection Final Diagnosis/Problem List - Final Discharge Diagnosis/Problem (1) Acute renal failure (ARF) Current Visit: Yes Status: Acute (2) Hematuria Current Visit: Yes Status: Chronic Code(s): R31.9 - HEMATURIA, UNSPECIFIED (3) Hypertensive chronic kidney disease with stage 1 through stage 4 chronic kidney disease, or unspecified chronic kidney disease Current Visit: Yes Status: Chronic Code(s): I12.9 - HYPERTENSIVE CHRONIC KIDNEY DISEASE W STG 1-4/UNSP CHR KDNY (4) Abdominal pain Current Visit: No Status: Resolved Code(s): R10.9 - UNSPECIFIED ABDOMINAL PAIN (5) HLD (hyperlipidemia) Current Visit: Yes Status: Chronic Code(s): E78.5 - HYPERLIPIDEMIA, UNSPECIFIED (6) Anxiety and depression Current Visit: Yes Status: Chronic Code(s): F41.9 - ANXIETY DISORDER, UNSPECIFIED; F32.A - DEPRESSION, UNSPECIFIED (7) Epilepsy Current Visit: Yes Status: Chronic Code(s): G40.909 - EPILEPSY, UNSP, NOT INTRACTABLE, WITHOUT STATUS EPILEPTICUS (8) UTI (urinary tract infection) Current Visit: Yes Status: Acute Code(s): N39.0 - URINARY TRACT INFECTION, SITE NOT SPECIFIED - Discharge Discharge Date: 02/06/25 Disposition: Home, Self-Care Condition: Stable Prescriptions: New Ciprofloxacin [Cipro 500 MG] 250 mg PO BID 7 Days #14 tablet Ondansetron ODT 4 MG [Zofran Odt 4 mg] 4 mg PO Q6H PRN PRN #20 tablet PRN Reason: Nausea Continue hydrOXYzine HCL [Hydroxyzine HCl] 50 mg PO DAILY PRN PRN PRN Reason: Anxiety Trazodone HCl 100 mg PO HS PRN PRN Reason: sleep Metoprolol Tartrate 25 mg [Lopressor 25MG Tab] 25 mg PO DAILY lisinopriL [Zestril] 40 mg PO DAILY Divalproex Sodium ER 250 mg [Depakote EXTENDED RELEASE 250 MG] 500 mg PO HS Clonidine HCl Tts-2 Patch [Catapres TTS-2 PATCH] 0.2 mg TOP Q7D Esketamine HCl [Spravato] 84 mg INTRANASAL WEEKLY Alprazolam [Alprazolam ER] 1 mg PO DAILY Naltrexone HCl 50 mg PO DAILY PRN PRN Reason: alcohol cessation Ezetimibe 10 mg [Zetia 10 MG] 10 mg PO DAILY Desvenlafaxine [Desvenlafaxine ER] 100 mg PO HS Metoprolol Succinate 50 mg PO DAILY Atorvastatin Calcium 40 mg PO DAILY Discontinued Tirzepatide [Zepbound] 5 mg SQ WEEKLY Follow up with: BOBBY JONES NP [Primary Care Provider, UNKNOWN]
[2025-02-06] MEDS ORDERED: ALPRAZOLAM 1 MG PO SCH (10:00)
[2025-02-06] MEDS ORDERED: Lopressor 25MG Tab PO SCH (10:00)
[2025-02-06] MEDS ORDERED: Catapres TTS-2 PATCH TOP SCH (10:00)
[2025-02-06 11:46] LABS: Complement C3 150 mg/dL (82-167)
[2025-02-08 16:44] LABS: Complement, Total (CH50) 52 U/mL (>41)
[2025-02-08 17:07] LABS: Albumin 3.7 g/dL (2.9-4.4); Alpha-1-Globulin 0.2 g/dL (0.0-0.4); Alpha-2-Globulin 0.8 g/dL (0.4-1.0); Gamma Globulin 0.8 g/dL (0.4-1.8); Protein, Total 6.7 g/dL (6.0-8.5)
== END 2025-02-06 10:05 | disposition home or self-care (01) ==
LOC: ED 13:17 → MED SURG 19:40
PROVIDERS: ADMIT Internal Medicine; ATTEND Internal Medicine
DX: N17.9 Acute kidney failure, unspecified (principal); R31.9 Hematuria, unspecified; I12.9 Hypertensive chronic kidney disease with stage 1 through stage 4 chronic kidney disease, or unspecified chronic kidney disease; N18.9 Chronic kidney disease, unspecified; R10.30 Lower abdominal pain, unspecified; E78.5 Hyperlipidemia, unspecified; F41.9 Anxiety disorder, unspecified; F32.A Depression, unspecified; G40.909 Epilepsy, unspecified, not intractable, without status epilepticus; N39.0 Urinary tract infection, site not specified; Z79.899 Other long term (current) drug therapy
CPT/HCPCS: 36415; 74176; 80053; 80069; 81001; 82570; 82784; 83521; 83690; 83735; 84156; 84165; 84166; 84300; 85025; 86160; 86162; 86335; 87086; 96374; 99285; G0378; J2270; J2405; Q3014; A9270-GY

== ENCOUNTER 2025-02-17 22:07 | Emergency (ER) | payer MEDICAID ==
--- NOTE | 2025-02-17 22:09 | ERPHSYRPT ---
- History of Present Illness Time Seen by Provider: 02/17/25 22:09 Historian: patient, family Exam Limitations: no limitations Physician History: This is an obese 24-year-old white male patient who has history of autism, depression, bipolar disorder, anxiety as well as acute on chronic renal issues and presents to the emergency department by private vehicle, driving himself to the hospital after having a left renal biopsy performed at [facility] out of [facility] earlier today. Approximately 1 hour prior to arrival there was sudden, significant pain in his left flank area and left lower quadrant region. This is followed by gross hematuria. Because of the pain and the gross hematuria, the patient presents to the emergency department for further evaluation and management. Upon arrival to the emergency department, his vital signs show a normal blood pressure but he is tachycardic in the 120s and 130 bpm range. Activities at Onset: none Quality: sharpness, stabbing Abdominal Pain Onset Location: flank (Left flank) Pain Radiation: LLQ, groin Severity of Pain-Max: moderate Severity of Pain-Current: moderate Modifying Factors: Improves With: nothing Associated Symptoms: denies symptoms Previous symptoms: recently seen, recently treated Allergies/Adverse Reactions: Penicillins Allergy (Unknown, Verified 08/22/24 03:24) Home Medications: hydrOXYzine HCL [Hydroxyzine HCl] 50 mg PO DAILY PRN PRN 11/07/23 [History] Trazodone HCl 100 mg PO HS PRN 01/14/24 [History] Clonidine HCl Tts-2 Patch [Catapres TTS-2 PATCH] 0.2 mg TOP Q7D 05/19/24 [History] Divalproex Sodium ER 250 mg [Depakote EXTENDED RELEASE 250 MG] 500 mg PO HS 05/19/24 [History] Metoprolol Tartrate 25 mg [Lopressor 25MG Tab] 25 mg PO DAILY 05/19/24 [History] lisinopriL [Zestril] 40 mg PO DAILY 05/19/24 [History] Alprazolam [Alprazolam ER] 1 mg PO DAILY 02/04/25 [History] Atorvastatin Calcium 40 mg PO DAILY 02/04/25 [History] Desvenlafaxine [Desvenlafaxine ER] 100 mg PO HS 02/04/25 [History] Esketamine HCl [Spravato] 84 mg INTRANASAL WEEKLY 02/04/25 [History] Ezetimibe 10 mg [Zetia 10 MG] 10 mg PO DAILY 02/04/25 [History] Metoprolol Succinate 50 mg PO DAILY 02/04/25 [History] Naltrexone HCl 50 mg PO DAILY PRN 02/04/25 [History] Hx Tetanus, Diphtheria Vaccination/Date Given: Yes Hx Influenza Vaccination/Date Given: No Hx Pneumococcal Vaccination/Date Given: No Travel Risk - International Travel Have you traveled outside of the country in past 3 weeks: No - Emerging Infectious Disease Are you exhibiting symptoms associated with any current EIDs: No Symptoms: Abdominal Pain, Vomitting Comment: dizziness - Review of Systems Constitutional: No Symptoms Eyes: No Symptoms Ears, Nose, & Throat: No Symptoms Respiratory: No Symptoms Cardiac: No Symptoms Abdominal/Gastrointestinal: Abdominal Pain (Left lower quadrant) Genitourinary Symptoms: Hematuria, Flank Pain (Left flank pain) Musculoskeletal: No Symptoms Skin: No Symptoms Neurological: No Symptoms Psychological: No Symptoms Endocrine: No Symptoms Hematologic/Lymphatic: No Symptoms Immunological/Allergic: No Symptoms All Other Systems: Reviewed and Negative - Past Medical History Pertinent Past Medical History: Yes Neurological History: No Pertinent History, Epilepsy ENT History: No Pertinent History Cardiac History: High Cholesterol, Hypertension Respiratory History: Pneumonia Endocrine Medical History: No Pertinent History Musculoskeletal History: No Pertinent History GI Medical History: Hernia History: No Pertinent History Psycho-Social History: Anxiety, Bipolar, Depression, Other Male Reproductive Disorders: No Pertinent History Other Medical History: Autism, reactive attachment disorder, gastritis, GI bleed - Past Surgical History Past Surgical History: Yes Neuro Surgical History: No Pertinent History Cardiac: No Pertinent History Respiratory: No Pertinent History Gastrointestinal: Hernia Repair Genitourinary: No Pertinent History Musculoskeletal: No Pertinent History Male Surgical History: No Pertinent History Other Surgical History: Hernia repair x2. egd and colonoscopy - Social History Smoking Status: Never smoker Exposure to second hand smoke: No Drug Use: none - Social Determinants of Health Will the patient participate in the screening: Declined to provide Do you worry about a steady place to live?: No In the past 12 months,have you had to go without utilities?: No Transportation Issues: No Has anyone in your support network made you feel unsafe?: No Have you or anyone in your house had to go w/o enough food: No - Nursing Vital Signs Nursing Vital Signs: Initial Vital Signs Temperature 98.5 F 02/17/25 22:23 Pulse Rate 138 H 02/17/25 22:23 Respiratory Rate 20 02/17/25 22:23 Blood Pressure 136/90 02/17/25 22:23 O2 Sat by Pulse Oximetry 98 02/17/25 22:23 Pain Scale Pain Intensity 7 - Physical Exam General Appearance: no apparent distress, alert, anxiety Eye Exam: PERRL/EOMI, eyes nml inspection Ears, Nose, Throat Exam: normal ENT inspection, moist mucous membranes Neck Exam: normal inspection, non-tender, supple, full range of motion Respiratory Exam: normal breath sounds, lungs clear, respiratory distress, airway intact, No chest tenderness Cardiovascular Exam: tachycardia Gastrointestinal/Abdomen Exam: soft, normal bowel sounds, No tenderness Rectal Exam: not done Back Exam: normal inspection, normal range of motion, CVA tenderness (Left flank pain), other (The area of the left flank shows no ecchymosis no redness and no active bleeding. 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 as tested, nml cerebellar function, nml station & gait, sensation nml Skin Exam: normal color, warm, dry Lymphatic Exam: No adenopathy SpO2 Interpretation: normal O2 Delivery: Room Air - Course Nursing assessment & vital signs reviewed: Yes Ordered Tests: Active Orders 24 hr Category Date Time Status IV Insertion STAT Care 02/17/25 22:48 Active ABDOMEN AND PELVIS W/0 CONTRAS [CT] Stat Exams 02/17/25 22:47 Completed AMYLASE Stat Lab 02/17/25 23:25 Completed CBC W DIFF Stat Lab 02/17/25 23:25 Completed CMP Stat Lab 02/17/25 23:25 Completed CULTURE,URINE Stat Lab 02/17/25 23:00 Received LIPASE Stat Lab 02/17/25 23:25 Completed PROTIME WITH INR Stat Lab 02/17/25 23:25 Completed UA W/RFX UR CULTURE Stat Lab 02/17/25 23:00 Completed Medication Summary Generic Name Dose Route Start Last Admin Trade Name Freq PRN Reason Stop Dose Admin Sodium Chloride 1,000 mls @ 999 mls/hr 02/18/25 00:00 Sodium Chloride 0.9% 1000 Ml IV 02/18/25 01:00 .Q1H1M STA Lab/Rad Data: Laboratory Result Diagrams 02/17/25 23:25 02/17/25 23:25 Laboratory Results 02/17/25 02/17/25 02/17/25 Range/Units 23:25 23:25 23:25 WBC 6.4 (4.23-9.07) x10^3/uL RBC 4.53 L (4.63-6.08) x10^6/uL Hgb 12.7 L (13.7-17.5) g/dL Hct 38.4 L (40.1-51.0) % MCV 84.8 (79.0-92.2) fL MCH 28.0 (25.7-32.2) pg MCHC 33.1 (32.3-36.5) g/dL RDW 13.9 (11.6-14.4) % Plt Count 282 (163-337) x10^3/uL MPV 9.3 L (9.4-12.4) fL Gran % 72.0 H (34.0-67.9) % Immature Gran % (Auto) 0.2 (0.001-0.429) % Nucleat RBC Rel Count 0.0 (0.00-0.2) % Eos # (Auto) 0.26 (0.04-0.54) x10^3/uL Immature Gran # (Auto) 0.01 (0.001-0.031) x10^3u/L Absolute Lymphs (auto) 0.99 L (1.32-3.57) x10^3/uL Absolute Monos (auto) 0.51 (0.30-0.82) x10^3/uL Absolute Nucleated RBC 0.00 (0.00-0.012) x10^3u/L Lymphocytes % 15.4 L (21.8-53.1) % Monocytes % 7.9 (5.3-12.2) % Eosinophils % 4.0 (0.8-7.0) % Basophils % 0.5 (0.2-1.2) % Absolute Granulocytes 4.62 (1.78-5.38) x10^3/uL Basophils # 0.03 (0.01-0.08) x10^3/uL PT 10.7 (9.4-12.5) SECONDS INR 0.98 (0.8-3.0) Sodium 140 (135-145) mmol/L Potassium 4.0 (3.5-5.1) mmol/L Chloride 105 (98-107) mmol/L Carbon Dioxide 22 (22-30) mmol/L Anion Gap 16.7 H (5-15) MEQ/L BUN 11 (9-20) mg/dL Creatinine 1.74 H (0.66-1.25) mg/dL Estimated GFR 55.8 ML/MIN Glucose 132 H (74-106) mg/dL Calcium 9.2 (8.4-10.2) mg/dL Total Bilirubin 0.40 (0.2-1.3) mg/dL AST 42 (17-59) U/L ALT 49 (0-50) U/L Alkaline Phosphatase 71 (38-126) U/L Serum Total Protein 7.0 (6.3-8.2) g/dL Albumin 4.5 (3.5-5.0) g/dL Amylase 77 (30-110) U/L Lipase 80 (23-300) U/L Urine Color (Yellow) Urine Appearance (Clear) Urine pH (4.6-8.0) Ur Specific [place] (1.005-1.030) Urine Protein (Negative) Urine Glucose (UA) (Negative) mg/dL Urine Ketones (Negative) Urine Blood (Negative) Urine Nitrite (Negative) Urine Bilirubin (Negative) Urine Urobilinogen (0.2) mg/dL Ur Leukocyte Esterase (Negative) U Hyaline Cast (Auto) (0-2) /LPF Urine Microscopic RBC (0-5) /HPF Urine Microscopic WBC (0-5) /HPF Ur Epithelial Cells (None Seen) /HPF Urine Bacteria (None Seen) /HPF Urine Culture Reflexed (NO) 02/17/25 Range/Units 23:00 WBC (4.23-9.07) x10^3/uL RBC (4.63-6.08) x10^6/uL Hgb (13.7-17.5) g/dL Hct (40.1-51.0) % MCV (79.0-92.2) fL MCH (25.7-32.2) pg MCHC (32.3-36.5) g/dL RDW (11.6-14.4) % Plt Count (163-337) x10^3/uL MPV (9.4-12.4) fL Gran % (34.0-67.9) % Immature Gran % (Auto) (0.001-0.429) % Nucleat RBC Rel Count (0.00-0.2) % Eos # (Auto) (0.04-0.54) x10^3/uL Immature Gran # (Auto) (0.001-0.031) x10^3u/L Absolute Lymphs (auto) (1.32-3.57) x10^3/uL Absolute Monos (auto) (0.30-0.82) x10^3/uL Absolute Nucleated RBC (0.00-0.012) x10^3u/L Lymphocytes % (21.8-53.1) % Monocytes % (5.3-12.2) % Eosinophils % (0.8-7.0) % Basophils % (0.2-1.2) % Absolute Granulocytes (1.78-5.38) x10^3/uL Basophils # (0.01-0.08) x10^3/uL PT (9.4-12.5) SECONDS INR (0.8-3.0) Sodium (135-145) mmol/L Potassium (3.5-5.1) mmol/L Chloride (98-107) mmol/L Carbon Dioxide (22-30) mmol/L Anion Gap (5-15) MEQ/L BUN (9-20) mg/dL Creatinine (0.66-1.25) mg/dL Estimated GFR ML/MIN Glucose (74-106) mg/dL Calcium (8.4-10.2) mg/dL Total Bilirubin (0.2-1.3) mg/dL AST (17-59) U/L ALT (0-50) U/L Alkaline Phosphatase (38-126) U/L Serum Total Protein (6.3-8.2) g/dL Albumin (3.5-5.0) g/dL Amylase (30-110) U/L Lipase (23-300) U/L Urine Color Dark Yellow (Yellow) Urine Appearance Clear (Clear) Urine pH 5.5 (4.6-8.0) Ur Specific [place] 1.025 (1.005-1.030) Urine Protein 100 A (Negative) Urine Glucose (UA) Negative (Negative) mg/dL Urine Ketones 15 A (Negative) Urine Blood Large A (Negative) Urine Nitrite Negative (Negative) Urine Bilirubin Negative (Negative) Urine Urobilinogen 1.0 A (0.2) mg/dL Ur Leukocyte Esterase Negative (Negative) U Hyaline Cast (Auto) 3-5 A (0-2) /LPF Urine Microscopic RBC 51-100 A (0-5) /HPF Urine Microscopic WBC 3-5 (0-5) /HPF Ur Epithelial Cells None Seen (None Seen) /HPF Urine Bacteria None Seen (None Seen) /HPF Urine Culture Reflexed YES (NO) - Progress Progress: improved, pain not gone completely, re-examined Progress Note: 02/17/25 22:59 My medical decision making and the assignment of moderate complexity of this patient's medical issue today is based on review of the patient's past medical history, review the patient's medication list, review the patient drug allergy list, review of the patient's history present illness and physical findings on examination. The workup in this patient includes placement of intravenous line, CBC, CMP, PT/INR, urinalysis, CT scan of the abdomen pelvis without contrast. Differential diagnosis includes but is not limited to urinary tract infection, left renal hematoma, pancreatitis, free intra-abdominal/pelvic fluid 02/18/25 00:15 I interpreted the patient's laboratory data results. Based on the laboratory data results, there are no acute or emergent medical issues. The patient has significant hematuria which is expected after renal biopsy. The patient does have evidence of dehydration with the presence of ketones in his urine. The CT scan of the abdomen pelvis without contrast was interpreted by the radiologist and I reviewed the impression. The impression states a few foci of air seen in the left perinephric space. No obvious hematoma or collection. There is subcutaneous emphysema seen in the left posterior abdominal wall Counseled pt/family regarding: lab results, diagnosis, need for follow-up, rad results Medical Desision Making - Diagnostic Testing Diagnostic test were ordered, analyzed, and reviewed by me: Yes Radiological Interpretation: Reviewed by me, Teleradiologist Report - Risk of complications The pt has a mod risk of morbidity or mortality based on: Need for prescription drug management - Departure Departure Disposition: Home Clinical Impression: Hematuria, Left flank pain Condition: Stable Critical Care Time: No Referrals: BOBBY JONES FABRICATION SPECIALIST [Primary Care Provider, UNKNOWN] - Follow up/PCP as directed Additional Instructions: Drink plenty of fluids before advancing your diet. Take your medications as prescribed. Call your primary care physician and your custom bookbinder/urologist who performed the kidney biopsy to update them on your visit here in our emergency department. Return to the emergency department if your symptoms worsen. Prescriptions: Oxycodone HCl/Acetaminophen [Percocet 5-325 mg Tablet] 1 each PO Q8H PRN PRN #6 tablet MDD 3 PRN Reason: Moderate To Severe Pain
[2025-02-17 22:42] VITALS: TEMP 98.5
[2025-02-17 23:28] LABS: Absolute Neutrophil Ct (ANC) 4.62 x10^3/uL (1.78-5.38); BASOPHIL % 0.5 % (0.2-1.2); Basophil (Absolute #) 0.03 x10^3/uL (0.01-0.08); Eosinophil (Absolute #) 0.26 x10^3/uL (0.04-0.54); Hematocrit 38.4 % (40.1-51.0); Hemoglobin 12.7 g/dL (13.7-17.5); IMMATURE GRAN # 0.01 x10^3u/L (0.001-0.031); IMMATURE GRAN % 0.2 % (0.001-0.429); Lymphocyte (Absolute #) 0.99 x10^3/uL (1.32-3.57); Lymphocytes % 15.4 % (21.8-53.1); Mean Cell Volume 84.8 fL (79.0-92.2); Mean Corpuscular Hgb Concent. 33.1 g/dL (32.3-36.5); Mean Platelet Volume 9.3 fL (9.4-12.4); Monocyte (Absolute #) 0.51 x10^3/uL (0.30-0.82); Monocytes % 7.9 % (5.3-12.2); Platelet Count 282 x10^3/uL (163-337); Red Blood Count 4.53 x10^6/uL (4.63-6.08); Red Cell Distribution Width 13.9 % (11.6-14.4); White Blood Count 6.4 x10^3/uL (4.23-9.07)
[2025-02-17 23:36] LABS: Appearance Clear (Clear); Bacteria None Seen /HPF (None Seen); Bilirubin Negative (Negative); Blood Large (Negative); Epithelial Cells None Seen /HPF (None Seen); Glucose, Urine Negative (Negative); Ketones 15 (Negative); Leukocyte Esterase Negative (Negative); Nitrite Negative (Negative); Ph 5.5 (4.6-8.0); Protein,Urine Dip 100 (Negative); RBC 51-100 /HPF (0-5); Specific Gravity 1.025 (1.005-1.030)
[2025-02-17 23:44] LABS: ALBUMIN 4.5 g/dL (3.5-5.0); ANION GAP 16.7 MEQ/L (5-15); BILIRUBIN,TOTAL 0.4 mg/dL (0.2-1.3); Calcium 9.2 mg/dL (8.4-10.2); Creatinine 1 1.74 mg/dL (0.66-1.25); EST GLOMERULAR FILTRATION RATE 55.8 ML/MIN; INR 0.98 (0.8-3.0); PROTIME 10.7 SECONDS (9.4-12.5)
--- NOTE | 2025-02-18 00:04 | XRAY ---
CLINICAL HISTORY: Hematuria; left flank pain COMPARISON: CT abdomen and pelvis scan done on 04 February 2025 TECHNIQUE: Contiguous axial images were obtained from the level of the diaphragm to the pubic symphysis without intravenous or oral contrast. Coronal and sagittal reconstructions were likewise performed and indicated to increase the sensitivity for detecting clinically relevant pathology. CT scan was performed according to ALARA (as low as reasonable achievable). FINDINGS: The visualized lung bases are clear. Evaluation of the abdominal and pelvic visceral organs is limited without intravenous contrast. The unenhanced liver, spleen, pancreas, and adrenal glands are grossly unremarkable. The gallbladder is present. The kidneys are normal in size and attenuation. There are foci of air seen in the left perinephric space. Subcutaneous emphysema is seen in the left posterior abdominal wall in lumbar region. The ureters are normal in caliber. No adenopathy or fluid collections are seen. No evidence of focal or diffuse bowel wall thickening or evidence of bowel obstruction is seen. The appendix is visualized in the right lower quadrant and appears within normal limits. The aorta is normal in caliber. The urinary bladder is normal in contour. Pelvic viscera are grossly unremarkable. No aggressive appearing osseous lesions are identified. IMPRESSION: 1. Few foci of air seen in the left perinephric space. No obvious hematoma/collection seen. 2. Subcutaneous emphysema is seen in the left posterior abdominal wall. The findings are suggesting recent biopsy changes. As compared to prior CT scan, the findings are new Electronically Signed by: Ayan Oconnell MD. (02/18/2025 00:01:00 EDT)
[2025-02-18] MEDS: Sodium Chloride 0.9% 1000 ML 1,000 ML IV STA (00:22)
[2025-02-18] MEDS ORDERED: PERCOCET TABLET 5/325MG ONE (00:49)
[2025-02-18] MEDS ORDERED: Toprol-Xl 25MG Tablets ONE (00:49)
[2025-02-18] MEDS: Toprol Xl 50 MG PO ONE (00:51)
[2025-02-18] MEDS: Toprol-Xl 25MG Tablets PO ONE (00:51)
[2025-02-18] MEDS: PERCOCET TABLET 5/325MG PO STA (00:52)
[2025-02-18 01:27] VITALS: BP 118/78; PULSE 99; RESP 16; O2SAT 97
== END 2025-02-18 01:27 | disposition home or self-care (01) ==
LOC: ED 22:07
DX: R31.9 Hematuria, unspecified (principal); R10.9 Unspecified abdominal pain; Z79.899 Other long term (current) drug therapy
CPT/HCPCS: 36415; 74176; 80053; 81001; 82150; 83690; 85025; 85610; 87086; 96360; 99284; A9270-GY